=== PATIENT | female | born 1960 | race Caucasian/White ===

== ENCOUNTER 2020-04-25 07:25 | Emergency (ER) | payer BC ==
--- OUTSIDE RECORDS SUMMARY | 2020-04-25 07:31 | XMS REPORT | Continuity of Care Document ---
:1960 Author Organization [facility] t Address [address] [place] [address] Care Team Providers Name Role Phone Unavailable Unavailable Unavailable Payers Payer Name Policy Type Policy Number Effective Date Expiration Date S ource Problems This patient has no known problems. Allergies, Adverse Reactions, Alerts Allergy Allergy Status Severity Reaction(s) Onset Inactive Treating Comm ents Source Name Type Date Date Clinician penicill DA Active U 2010-04 [facility] in G 06-08 00:00: [address] Medications This patient has no known medications. Procedures This patient has no known procedures. Results Test Description Test Time Test Comments Results Result Comments Source BASIC METABOLIC PANEL 2019-04-07 10:41:00 Test Item Value Reference Range Interpretation Comme nts SODIUM (test code = NA) 136 MMOL/L 137-145 L POTASSIUM (test code = K) 4.4 MMOL/L 3.5-5.1 N CHLORIDE (test code = CL) 97 MMOL/L 98-107 L CARBON DIOXIDE (test code = CO2) 30 MMOL/L 22-30 N GLUCOSE (test code = GLU) 124 MG/DL 74-106 H BLOOD UREA NITROGEN (test code = 12 MG/DL 7-17 N BUN) GLOMERULAR FILTRATION RATE (test > 60 Reporting units: ml/min/1.73 code = GFR) m2 (Modified M DRD Formula)Referen ce Range: > or = 60 ml/min/1.7 3 m2 CREATININE (test code = CREAT) 0.80 MG/DL 0.52-1.04 N CALCIUM (test code = CA) 9.7 MG/DL 8.4-10.2 N [id number] 10:41:00 Test Item Value Reference Range Interpretation Comments MAGNESIUM (test code = MAG) 1.8 MG/DL 1.6-2.3 N BASIC METABOLIC [id number] 10:40:00 Test Item Value Reference Range Interpretation Comments SODIUM (test code = 136 MMOL/L 137-145 L NA) POTASSIUM (test code = 4.4 MMOL/L 3.5-5.1 N K) CHLORIDE (test code = 97 MMOL/L 98-107 L CL) CARBON DIOXIDE (test MMOL/L 22-30 code = CO2) GLUCOSE (test code = MG/DL 74-106 GLU) BLOOD UREA NITROGEN MG/DL 7-17 (test code = BUN) GLOMERULAR FILTRATION > 60 Report ing units: RATE (test code = GFR) ml/mi n/1.73 m2 (Modified MDRD Formula)Referen ce Range: > or = 6 0 ml/min/1.73 m2 CREATININE (test code 0.80 MG/DL 0.52-1.04 N = CREAT) CALCIUM (test code = MG/DL 8.7-9.7 CA) [id number] 10:40:00 Test Item Value Reference Range Interpretation Comments MAGNESIUM (test code = MAG) MG/DL 1.6-2.3 BASIC METABOLIC [id number] 10:38:00 Test Item Value Reference Range Interpretation Comments SODIUM (test code = NA) 136 MMOL/L 137-145 L POTASSIUM (test code = K) 4.4 MMOL/L 3.5-5.1 N CHLORIDE (test code = CL) 97 MMOL/L 98-107 L CARBON DIOXIDE (test code = CO2) MMOL/L 22-30 GLUCOSE (test code = GLU) MG/DL 74-106 BLOOD UREA NITROGEN (test code = MG/DL 7-17 BUN) GLOMERULAR FILTRATION RATE (test code = GFR) CREATININE (test code = CREAT) MG/DL 0.52-1.04 CALCIUM (test code = CA) MG/DL 8.7-9.7 [id number] 10:38:00 Test Item Value Reference Range Interpretation Comments MAGNESIUM (test code = MAG) MG/DL 1.6-2.3 PROTHROMBIN [id number] 10:25:00 Test Item Value Reference Range Interpretation Comments PROTHROMBIN TIME 10.2 SECONDS 9.6-11.6 N PATIENT (test code = PTP) INTERNATIONAL NORMAL 1.0 0.8-1.1 N The INR is to be RATIO (test code = used only for INR) monitoring oral anticoagulantth erap y. INDICATION I NR VALUE ---- ---- ---- -------1. Prophylaxis, de ep venous thrombos is, including hig h risk surgery. 2.0 - 3.0 2. Prophylaxis, de ep venous thrombos is, hip surgery, treatment for d eep venous thrombosis or pulmonary prevention of systemic emboli sm in patients wit h valvular heart disease, atrial fibrillation, tissue heart va lve, or acute myocar dial infarction. 2.0 - 3 .0 3. Mechanical prosthesis hear t valves, recurrent syste oseas embolism. 3.0 - 4.5 PTT [id number] 10:25:00 Test Item Value Reference Range Interpretation Comments PTT ACTIVATED (test code = APTT) 30.2 SECONDS 22.0-33.0 N CBC W/AUTO [id number] 10:11:00 Test Item Value Reference Range Interpretation Comments WHITE BLOOD CELL (test code = 8.4 K/MM3 3.8-9.8 N WBC) RED BLOOD CELL (test code = 4.33 M/MM3 3.58-4.97 N RBC) HEMOGLOBIN (test code = HGB) 13.0 G/DL 11.2-14.9 N HEMATOCRIT (test code = HCT) 39.4 % 33.2-43.5 N MEAN CELL VOLUME (test code = 91 fL 80.7-99.1 N MCV) MEAN CELL HGB (test code = MCH) 30.0 pg 27.0-34.1 N MEAN CELL HGB CONCETRATION 33.0 % 32.2-35.7 N (test code = MCHC) RED CELL DISTRIBUTION WIDTH 12.8 % 12.1-15.2 N (test code = RDW) PLATELET COUNT (test code = 203 K/MM3 129-368 N PLT) MEAN PLATELET VOLUME (test code 10.5 fl 7.4-10.4 H = MPV) NEUTROPHIL % (test code = NT%) 63.0 % 43-75 N IMMATURE GRANULOCYTE % (test 0.9 % 0.0-2.0 N code = IG%) LYMPHOCYTE % (test code = LY%) 25.5 % 14-44 N MONOCYTE % (test code = MO%) 6.3 % 4-13 N EOSINOPHIL % (test code = EO%) 3.8 % 0-6 N BASOPHIL % (test code = BA%) 0.5 % 0-2 N NUCLEATED RBC % (test code = 0.0 % 0-1.0 N NRBC%) NEUTROPHIL # (test code = NT#) 5.32 K/mm3 2.0-7.6 N IMMATURE GRANULOCYTE # (test 0.08 x10 3/uL 0-0.03 H code = IG#) LYMPHOCYTE # (test code = LY#) 2.15 K/mm3 1.0-3.8 N MONOCYTE # (test code = MO#) 0.53 K/mm3 0.1-0.8 N EOSINOPHIL # (test code = EO#) 0.32 K/mm3 0.0-0.2 H BASOPHIL # (test code = BA#) 0.04 K/mm3 0.0-0.2 N NUCLEATED RBC # (test code = 0.00 K/mm3 0.0-0.1 N NRBC#)
[2020-04-25 08:02] LABS: Absolute Lymphocytes (CBC) 2.5 K/uL (0.7-4.9); Basophils % 0.8 % (0-1.3); Hematocrit 41.4 % (36.0-45.0); Lymphocytes % 31.3 % (15.3-44.8); MPV 9.1 fL (7.6-11.3); RBC Red Blood Cell Count 4.87 M/uL (3.86-4.86)
[2020-04-25 08:07] LABS: Protime INR 1.59
[2020-04-25 08:19] LABS: ALT/SGPT 79 U/L (12-78); AST/SGOT 41 U/L (15-37); Albumin 3.5 g/dL (3.4-5.0); Alkaline Phosphatase 86 U/L (45-117); BUN Blood Urea Nitrogen 15 mg/dL (7-18); Bicarbonate 28 mmol/L (21-32); Bilirubin Direct 0.2 mg/dL (0-0.2); Bilirubin Total 0.8 mg/dL (0.2-1.0); CKMB Creatine Kinase MB < 1.0 ng/mL (0.3-3.6); Creatine Phosphokinase 101 U/L (26-192); Glucose Level 138 mg/dL (74-106); Lipase 240 U/L (73-393); Magnesium 1.9 mg/dL (1.8-2.4); NT PRO-BNP 127 pg/mL (<125); Potassium 3.4 mmol/L (3.5-5.1); Protein, Total 8.9 g/dL (6.4-8.2); Sodium Level 128 mmol/L (136-145); Troponin (Emerg Dept Use Only) < 0.02 ng/mL (0.0-0.045)
[2020-04-25] MEDS ORDERED: METHYLPREDNISOLONE 125 MG INJ ONE (08:23)
[2020-04-25] MEDS ORDERED: LEVALBUTEROL 1.25 MG/3 ML NEB ONE (08:24)
--- NOTE | 2020-04-25 10:12 | RAD REPORT ---
EXAM DESCRIPTION: CT - Chest For Pe Angio - 04/25/2020 9:58 am CLINICAL HISTORY: SOB and Covid + COMPARISON: No comparisons TECHNIQUE: Dynamically enhanced 3 mm thick images of the chest were obtained during administration o f approximately 150mL Isovue 370 IV contrast. Coronal and oblique MIP reconstruction images were gene rated and reviewed. Exam utilizes a protocol to evaluate the pulmonary arterial tree. All CT scans are performed using dose optimization technique as appropriate and may include automated exposure control or mA/KV adjustment according to patient size. FINDINGS: No pulmonary emboli are identified. The aorta as imaged shows no acute or suspicious finding. No pericardial thickening or effusion. Bilateral ground-glass opacification present in the upper and mid lung kent. Less prominent airspac e disease in the lower lung kent. Distribution is peripheral. This is a well described COVID-19 pne umonia pattern. Parenchymal scarring and bronchiectasis changes are present in the medial aspect of e ach upper lobe. No pleural effusion or pleural thickening. No mediastinal or hilar suspicious masses. No chest wall masses or abnormal axillary lymphadenopathy. IMPRESSION: No pulmonary emboli identified. Moderate severity bilateral COVID-19 pneumonia pattern
--- NOTE | 2020-04-25 12:34 | EDPHYS ---
Physician Documentation [facility] Name: Flakita Stevenson Age: 59 yrs Sex: Female : 1960 Arrival Date: 04/25/2020 Time: 07:28 Bed 6 Private MD: ED Physician Rachid Silva HPI: 04/25 15:50 This 59 yrs old Female presents to ER via Ambulatory with complaints of kdr Shortness Of Breath, Covid +. 15:50 The patient has shortness of breath at rest, with light activity. Onset: The kdr symptoms/episode began/occurred gradually, 1 week(s) ago, Worse today when the patient noted that her sats dropped from \\R\\97% to 93%. The patient had brought her in yesterday for similar problems and he was admitted. The patient is concerted that she may be worsening as did her . she had been seen last week by her doctor and given am Rx for steroids and abx. She has not taken the steroids. Duration: The symptoms are continuous, Worse now but not progressively worsening. The patient's shortness of breath has no apparent modifying factors. Associated signs and symptoms: Pertinent positives: non-productive cough. Severity of symptoms: At their worst the symptoms were mild in the emergency department the symptoms are unchanged. The patient has not experienced similar symptoms in the past. The patient has been recently seen by a physician: the patient's primary care provider. Historical: - Allergies: 08:20 PENICILLINS; tw2 08:20 Cipro; tw2 - Home Meds: 08:20 carvedilol 25 mg oral tab 1 tab 2 times per day [Active]; lisinopril 5 mg Oral tab 1 tw2 tab once daily [Active]; spironolactone 25 mg Oral tab 1 tab once daily [Active]; digoxin 125 mcg Oral tab 1 tab once daily [Active]; hydrochlorothiazide 12.5 mg Oral tab 1 tab once daily [Active]; digoxin 125 mcg Oral tab 1 tab once daily [Active]; Caltrate + D3 Plus Minerals 300 mg-800 unit -25 mg-0.5 mg oral tab [Active]; Multiple Vitamins oral tab [Active]; - PSHx: 08:20 pacemaker/defibrillator; tw2 ROS: 15:50 Constitutional: Negative for fever, chills, and weight loss, Eyes: Negative for injury, kdr pain, redness, and discharge, Neck: Negative for injury, pain, and swelling, Cardiovascular: Negative for chest pain, palpitations, and edema, Abdomen/GI: Negative for abdominal pain, nausea, vomiting, diarrhea, and constipation, Back: Negative for injury and pain, : Negative for injury, bleeding, discharge, and swelling, MS/Extremity: Negative for injury and deformity, Skin: Negative for injury, rash, and discoloration, Neuro: Negative for headache, weakness, numbness, tingling, and seizure activity. Psych: Negative for depression, anxiety, suicide ideation, homicidal ideation, and hallucinations, Allergy/Immunology: Negative for hives, rash, and allergies, Endocrine: Negative for neck swelling, polydipsia, polyuria, polyphagia, and marked weight changes, Hematologic/Lymphatic: Negative for swollen nodes, abnormal bleeding, and unusual bruising. 15:50 Respiratory: Positive for cough, "sounds productive", dyspnea on exertion, shortness of breath, Negative for hemoptysis, orthopnea, pleurisy. Exam: 09:06 ECG was reviewed by the Attending Physician. kdr 15:50 Constitutional: This is a well developed, well nourished patient who is awake, alert, kdr and in no acute distress. Head/Face: Normocephalic, atraumatic. Eyes: Pupils equal round and reactive to light, extra-ocular motions intact. Lids and lashes normal. Conjunctiva and sclera are non-icteric and not injected. Cornea within normal limits. Periorbital areas with no swelling, redness, or edema. Neck: Trachea midline, no thyromegaly or masses palpated, and no cervical lymphadenopathy. Supple, full range of motion without nuchal rigidity, or vertebral point tenderness. No Meningismus. Chest/axilla: Normal chest wall appearance and motion. Nontender with no deformity. No lesions are appreciated. Cardiovascular: Regular rate and rhythm with a normal S1 and S2. No gallops, murmurs, or rubs. Normal PMI, no JVD. No pulse deficits. Abdomen/GI: Soft, non-tender, with normal bowel sounds. No distension or tympany. No guarding or rebound. No evidence of tenderness throughout. Back: No spinal tenderness. No costovertebral tenderness. Full range of motion. Skin: Warm, dry with normal turgor. Normal color with no rashes, no lesions, and no evidence of cellulitis. MS/ Extremity: Pulses equal, no cyanosis. Neurovascular intact. Full, normal range of motion. Neuro: Awake and alert, GCS 15, oriented to person, place, time, and situation. Cranial nerves II-XII grossly intact. Motor strength 5/5 in all extremities. Sensory grossly intact. Cerebellar exam normal. Normal gait. Psych: Awake, alert, with orientation to person, place and time. Behavior, mood, and affect are within normal limits. 15:50 Respiratory: the patient does not display signs of respiratory distress, Respirations: shallow respirations, that is mild, Breath sounds: rales, rhonchi, that are mild, are scattered, are located in both bases, are heard diffusely. Vital Signs: 07:39 BP 126 / 66; Pulse 97; Resp 22; Temp 98.3; Pulse Ox 97% on R/A; Weight 72.57 kg; Height dm5 5 ft. 4 in. (162.56 cm); Pain 0/10; 08:47 BP 113 / 64; Pulse 93; Resp 15; Pulse Ox 100% on 2 lpm NC; tw2 10:00 BP 120 / 54; Pulse 86; Resp 19; Pulse Ox 96% on 2 lpm NC; tw2 11:00 BP 134 / 55; Pulse 87; Resp 20; Pulse Ox 96% on 2 lpm NC; tw2 12:00 BP 113 / 52; Pulse 88; Resp 24; Pulse Ox 96% on R/A; tw2 07:39 Body Mass Index 27.46 (72.57 kg, 162.56 cm) 5 MDM: 12:33 Patient medically screened. kdr 15:50 Data reviewed: vital signs, nurses notes, lab test result(s), EKG, radiologic studies. kdr Counseling: I had a detailed discussion with the patient and/or guardian regarding: the historical points, exam findings, and any diagnostic results supporting the discharge/admit diagnosis, lab results, radiology results, the need for outpatient follow up. ED course: The patient was stable in the ED and tolerated ambulation/exertions without desaturation. 04/25 07:32 Order name: Blood Culture Adult (2) kdr 04/25 07:32 Order name: BMP; Complete Time: 08:20 kdr 04/25 07:32 Order name: CBC with Diff; Complete Time: 08:20 kdr 04/25 07:32 Order name: Ckmb; Complete Time: 08:20 kdr 04/25 07:32 Order name: CPK; Complete Time: 08:20 kdr 04/25 07:32 Order name: D-Dimer; Complete Time: 08:20 kdr 04/25 07:32 Order name: Hepatic Function; Complete Time: 08:20 kdr 04/25 07:32 Order name: Lipase; Complete Time: 08:20 kdr 04/25 07:32 Order name: Magnesium; Complete Time: 08:20 kdr 04/25 07:32 Order name: NT PRO-BNP; Complete Time: 08:20 kdr 04/25 07:32 Order name: PT-INR; Complete Time: 08:20 kdr 04/25 07:32 Order name: Ptt, Activated; Complete Time: 08:20 kdr 04/25 07:32 Order name: Troponin (emerg Dept Use Only); Complete Time: 08:20 kdr 04/25 07:32 Order name: Blood Culture EDMS 04/25 07:32 Order name: EKG; Complete Time: 07:33 kdr 04/25 07:32 Order name: Cardiac monitoring; Complete Time: 07:54 kdr 04/25 07:32 Order name: EKG - Nurse/Tech; Complete Time: 08:02 kdr 04/25 07:32 Order name: IV Saline Lock; Complete Time: 07:54 kdr 04/25 07:32 Order name: Labs collected and sent; Complete Time: 07:54 kdr 04/25 07:32 Order name: O2 Per Protocol; Complete Time: 07:54 kdr 04/25 07:32 Order name: O2 Sat Monitoring; Complete Time: 07:54 kdr 04/25 09:38 Order name: CT Chest For PE Angio; Complete Time: 11:05 kdr 04/25 11:12 Order name: Misc. Order: ambulate patient and record POx; Complete Time: 12:30 kdr EC:06 Rate is 92 beats/min. Rhythm is regular, Sinus Rhythm with No ectopy. QRS [place] is kdr Normal. Left axis deviation noted. NC interval is normal. QRS interval is normal. QT interval is normal. 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 Administered Medications: 08:14 Drug: SOLU-Medrol 125 mg Route: IVP; Site: right antecubital; tw2 12:30 Follow up: Response: No adverse reaction tw2 08:16 Drug: Xopenex (3) 1.25 mg Route: Inhalation; tw2 Disposition: 04/25/20 12:33 Discharged to Home. Impression: Pneumonia, unspecified organism - COVID, SARS-associated coronavirus as the cause of diseases classified elsewhere. - Condition is Stable. - Discharge Instructions: Community-Acquired Pneumonia, Adult, Shortness of Breath, [id number]-mk-[id number], Community-Acquired Pneumonia, Adult, Biji-zb-Cwgw, COVID-19. - Prescriptions for Pulmicort Flexhaler 180 mcg/actuation Inhalation aerosol powdr breath activated - inhale 1 puff by INHALATION route 2 times per day; 1 Cartridge. - Medication Reconciliation Form, Thank You Letter, Antibiotic Education, Prescription Opioid Use form. - Follow up: Private Physician; When: 2 - 3 days; Reason: If symptoms return, Further diagnostic work-up, Recheck today's complaints, Continuance of care, Re-evaluation by your physician. - Problem is an ongoing problem. - Symptoms have improved. - Notes: Start taking the steroids that you had been previously given. Return if your symptoms worsen Signatures: Dispatcher [employer] EDMS Rachid Silva MD MD kdr Eun Cuellar RN RN tw2 Corrections: (The following items were deleted from the chart) 12:36 12:33 04/25/2020 12:33 Discharged to Home. Impression: Pneumonia, unspecified organism tw2 - COVID; SARS-associated coronavirus as the cause of diseases classified elsewhere. Condition is Stable. Discharge Instructions: Shortness of Breath, Gaqc-gc-Awgj, Community-Acquired Pneumonia, Adult, Bpmc-[id number], COVID-19. Prescriptions for Pulmicort Flexhaler 180 mcg/actuation Inhalation aerosol powdr breath activated - inhale 1 puff by INHALATION route 2 times per day; 1 Cartridge. and Forms are Medication Reconciliation Form, Thank You Letter, Antibiotic Education, Prescription Opioid Use. Follow up: Private Physician; When: 2 - 3 days; Reason: If symptoms return, Further diagnostic work-up, Recheck today's complaints, Continuance of care, Re-evaluation by your physician. Problem is an ongoing problem. Symptoms have improved. kdr
--- NOTE | 2020-04-25 12:34 | ER ---
Nurse's Notes [facility] Name: Flakita Stevenson Age: 59 yrs Sex: Female : 1960 Arrival Date: 04/25/2020 Time: 07:28 Bed 6 Private MD: Diagnosis: Pneumonia, unspecified organism-COVID;SARS-associated coronavirus as the cause of diseases classified elsewhere Presentation: 04/25 07:39 Chief complaint: Patient states: started to feel worse yesterday after trying to get dm5 to be seen yesterday. Oxygen dropped to 93% at home and she feels anxious. Coronavirus screen: Client denies travel out of the [place] in the last 14 days. Client reports previous positive COVID test result. Ebola Screen: Patient negative for fever greater than or equal to 101.5 degrees Fahrenheit, and additional compatible Ebola Virus Disease symptoms Patient denies exposure to infectious person. Patient denies travel to an Ebola-affected area in the 21 days before illness onset. No symptoms or risks identified at this time. Initial Sepsis Screen: Does the patient meet any 2 criteria? RR > 20 per min. No. Patient's initial sepsis screen is negative. Does the patient have a suspected source of infection? Yes: Productive cough/pneumonia. Risk Assessment: Do you want to hurt yourself or someone else? Patient reports no desire to harm self or others. Onset of symptoms was April 24, 2020. 07:39 Method Of Arrival: Ambulatory dm5 07:39 Acuity: FRANSICO 3 dm5 Historical: - Allergies: 08:20 PENICILLINS; tw2 08:20 Cipro; tw2 - Home Meds: 08:20 carvedilol 25 mg oral tab 1 tab 2 times per day [Active]; lisinopril 5 mg Oral tab 1 tw2 tab once daily [Active]; spironolactone 25 mg Oral tab 1 tab once daily [Active]; digoxin 125 mcg Oral tab 1 tab once daily [Active]; hydrochlorothiazide 12.5 mg Oral tab 1 tab once daily [Active]; digoxin 125 mcg Oral tab 1 tab once daily [Active]; Caltrate + D3 Plus Minerals 300 mg-800 unit -25 mg-0.5 mg oral tab [Active]; Multiple Vitamins oral tab [Active]; - PSHx: 08:20 pacemaker/defibrillator; tw2 Screenin:47 Abuse screen: Denies threats or abuse. Nutritional screening: No deficits noted. tw2 Tuberculosis screening: No symptoms or risk factors identified. Fall Risk None identified. Assessment: 07:45 General: Appears in no apparent distress. Behavior is cooperative, appropriate for age, tw2 anxious. Pain: Denies pain. Neuro: Level of Consciousness is awake, alert, obeys commands, Oriented to person, place, time, situation. Neuro: Reports fatigue. Cardiovascular: Rhythm is ventricular pacer. Respiratory: Reports shortness of breath at rest on exertion cough that is non-productive, persistent Airway is patent Respiratory effort is even, unlabored, Respiratory pattern is regular, symmetrical. Respiratory: Reports "i just feel claustrophobic with this mask on", pt placed on o2 via NC at 2L at this time for comfort. GI: No signs and/or symptoms were reported involving the gastrointestinal system. : No signs and/or symptoms were reported regarding the genitourinary system. Derm: No signs and/or symptoms reported regarding the dermatologic system. Skin is intact, is healthy with good turgor, Skin is pink, warm \\T\\ dry. Musculoskeletal: Range of motion: intact in all extremities. 07:52 Reassessment: provider at bedside. tw2 08:47 Reassessment: Patient appears in no apparent distress at this time. Patient and/or tw2 family updated on plan of care and expected duration. Pain level reassessed. Patient is alert, oriented x 3, equal unlabored respirations, skin warm/dry/pink. Patient states feeling better. 09:45 Reassessment: Patient appears in no apparent distress at this time. Patient and/or tw2 family updated on plan of care and expected duration. Pain level reassessed. Patient is alert, oriented x 3, equal unlabored respirations, skin warm/dry/pink. 10:45 Reassessment: Patient appears in no apparent distress at this time. Patient and/or tw2 family updated on plan of care and expected duration. Pain level reassessed. Patient is alert, oriented x 3, equal unlabored respirations, skin warm/dry/pink. 11:46 Reassessment: Patient appears in no apparent distress at this time. Patient and/or tw2 family updated on plan of care and expected duration. Pain level reassessed. Patient is alert, oriented x 3, equal unlabored respirations, skin warm/dry/pink. 12:00 Reassessment: Patient and/or family updated on plan of care and expected duration. Pain tw2 level reassessed. Patient is alert, oriented x 3, equal unlabored respirations, skin warm/dry/pink. pt ambulating around in room o2 sat at 96% on RA, NAD, provider notified. 12:28 Reassessment: Patient appears in no apparent distress at this time. Patient and/or tw2 family updated on plan of care and expected duration. Pain level reassessed. Patient is alert, oriented x 3, equal unlabored respirations, skin warm/dry/pink. Patient states feeling better. Vital Signs: 07:39 BP 126 / 66; Pulse 97; Resp 22; Temp 98.3; Pulse Ox 97% on R/A; Weight 72.57 kg; Height dm5 5 ft. 4 in. (162.56 cm); Pain 0/10; 08:47 BP 113 / 64; Pulse 93; Resp 15; Pulse Ox 100% on 2 lpm NC; tw2 10:00 BP 120 / 54; Pulse 86; Resp 19; Pulse Ox 96% on 2 lpm NC; tw2 11:00 BP 134 / 55; Pulse 87; Resp 20; Pulse Ox 96% on 2 lpm NC; tw2 12:00 BP 113 / 52; Pulse 88; Resp 24; Pulse Ox 96% on R/A; tw2 07:39 Body Mass Index 27.46 (72.57 kg, 162.56 cm) dm5 ED Course: 07:28 Patient arrived in ED. ds1 07:30 Rachid Silva MD is Attending Physician. kdr 07:30 Placed in gown. Bed in low position. manager community on. Pulse ox on. NIBP on. Warm tw2 blanket given. 07:32 Eun Cuellar RN is Primary Nurse. tw2 07:41 Triage completed. dm5 07:45 Inserted saline lock: 20 gauge in right antecubital area, using aseptic technique. tw2 Blood collected. 08:05 Second set of blood cultures drawn by me. tw2 08:16 Blood Culture Adult (2) Sent. tw2 09:59 CT Chest For PE Angio In Process Unspecified. EDMS 12:28 No provider procedures requiring assistance completed. IV discontinued, intact, tw2 bleeding controlled, No redness/swelling at site. Pressure dressing applied. Administered Medications: 08:14 Drug: SOLU-Medrol 125 mg Route: IVP; Site: right antecubital; tw2 12:30 Follow up: Response: No adverse reaction tw2 08:16 Drug: Xopenex (3) 1.25 mg Route: Inhalation; tw2 Outcome: 12:28 Discharged to home ambulatory. tw2 12:28 Condition: stable 12:28 Discharge instructions given to patient, Instructed on discharge instructions, follow up and referral plans. medication usage, Demonstrated understanding of instructions, follow-up care, medications, Prescriptions given X 1. 12:33 Discharge ordered by . kdr 12:36 Patient left the ED. tw2 Signatures: Dispatcher [employer] EDDebra Potts, RN RN dm5 Rachid Silva MD MD kdr Sanford, Demi ds1 Eun Cuellar RN RN tw2 Corrections: (The following items were deleted from the chart) 12:21 11:00 BP 134 / 55; Pulse 87bpm; Resp 20bpm; Pulse Ox 96% RA; tw2 tw2
[2020-04-25 13:21] VITALS: TEMP 98.3
[2020-04-25 13:24] VITALS: O2SAT 96
[2020-04-25 13:27] VITALS: BP 113/52
--- NOTE | 2020-04-25 17:32 | EKG ---
Test Date: 2020-04-25 Test Time: 07:56:03 Infertility Medical Assistant: DEON MEASUREMENT RESULTS: Intervals: Rate: 92 ME: 130 QRSD: 128 QT: 400 QTc: 494 [place]: P: 41 ME: 130 QRS: 85 T: 37 INTERPRETIVE STATEMENTS: Normal sinus rhythm Jopwp-Itgbdahsx-Qbnus Abnormal ECG Compared to ECG 11/05/2000 11:11:00 Ventricular preexcitation now present Sinus arrhythmia no longer present Electronically Signed On 04-25-20 17:31:17 BONE PROCESS OPERATOR by Enio Herrera
== END 2020-04-25 12:36 | disposition home or self-care (01) ==
LOC: ER 07:25
DX: U07.1 COVID-19 (principal); J12.82 Pneumonia due to coronavirus disease 2019; Z95.810 Presence of automatic (implantable) cardiac defibrillator; Z88.0 Allergy status to penicillin; Z88.1 Allergy status to other antibiotic agents
CPT/HCPCS: 93005; 87040 ×2; 85025; 80048; 36415; 83735; 82550; 85610; 85379; 80076; 85730; 84484; 82553; 83690; 83880; 71275; 96374; 99285; Q9967; J2930

== ENCOUNTER 2020-04-27 06:34 | Inpatient (IN) | payer BC ==
--- OUTSIDE RECORDS SUMMARY | 2020-04-27 06:36 | XMS REPORT | Continuity of Care Document ---
:1960 Author Organization [facility] t Address [address] [place] [address] Care Team Providers Name Role Phone Unavailable Unavailable Unavailable Payers Payer Name Policy Type Policy Number Effective Date Expiration Date S ource Problems This patient has no known problems. Allergies, Adverse Reactions, Alerts Allergy Allergy Status Severity Reaction(s) Onset Inactive Treating Comm ents Source Name Type Date Date Clinician penicill DA Active U 2010-04 [facility] in [facility] 06-08 00:00: [address] Medications This patient has no known [...] code = CA) 9.7 MG/DL 8.4-10.2 N [id number] 10:41:00 Test Item Value Reference Range Interpretation Comments MAGNESIUM (test code = MAG) 1.8 MG/DL 1.6-2.3 N BASIC METABOLIC [id number] 10:40:00 Test Item Value Reference Range Interpretation [...] CALCIUM (test code = MG/DL 8.7-9.7 CA) [id number] 10:40:00 Test Item Value Reference Range Interpretation Comments MAGNESIUM (test code = MAG) MG/DL 1.6-2.3 BASIC METABOLIC [id number] 10:38:00 Test Item Value Reference Range Interpretation [...] CALCIUM (test code = CA) MG/DL 8.7-9.7 [id number] 10:38:00 Test Item Value Reference Range Interpretation Comments MAGNESIUM (test code = MAG) MG/DL 1.6-2.3 PROTHROMBIN [id number] 10:25:00 Test Item Value Reference Range Interpretation [...] syste oseas embolism. 3.0 - 4.5 PTT [id number] 10:25:00 Test Item Value Reference Range Interpretation Comments PTT ACTIVATED (test code = APTT) 30.2 SECONDS 22.0-33.0 N CBC W/AUTO [id number] 10:11:00 Test Item Value Reference Range Interpretation [...]
--- NOTE | 2020-04-27 09:13 | RAD REPORT ---
EXAM DESCRIPTION: RAD - Chest Single View - 04/27/2020 8:55 am CLINICAL HISTORY: COVID+;Dyspnea Chest pain. COMPARISON: CHEST PA AND LAT 2 VIEW dated 09/25/2010; CHEST PA AND LAT 2 VIEW dated 11/18/2000; Chest Fo r Pe Angio dated 04/25/2020 FINDINGS: Portable technique limits examination quality. Mild interstitial and alveolar lung opacities are seen in the lower lobes peripherally likely related to viral pneumonia. The heart is normal in size. Dual lead pacer/ defibrillator device is present.
[2020-04-27 09:22] LABS: Absolute Lymphocytes (CBC) 1.7 K/uL (0.7-4.9); Basophils % 0.2 % (0-1.3); Lymphocytes % 10.7 % (15.3-44.8); MPV 9.3 fL (7.6-11.3); RBC Red Blood Cell Count 4.62 M/uL (3.86-4.86)
--- NOTE | 2020-04-27 09:22 | RAD REPORT ---
EXAM DESCRIPTION: CT - Chest For Pe Angio - 04/27/2020 9:12 am CLINICAL HISTORY: Chest pain. DYSPNEA COMPARISON: Chest For Pe Angio dated 04/25/2020 TECHNIQUE: CT angiogram of the pulmonary arteries was performed with MIP. All CT scans are performed using dose optimization technique as appropriate and may include automated exposure control or mA/KV adjustment according to patient size. FINDINGS: No evidence of pulmonary thromboembolism. No acute aortic finding demonstrated. Ground-glass opacities in the periphery of both lungs in both lung bases has mildly improved since co mparative CT. No significant pericardial or pleural fluid. No concerning bony finding. IMPRESSION: No evidence of pulmonary thromboembolism. Mild improvement in bilateral ground-glass opacities since 04/25/2020 study.
[2020-04-27] MEDS ORDERED: METHYLPREDNISOLONE 125 MG INJ ONE (09:25)
[2020-04-27 09:32] LABS: BUN Blood Urea Nitrogen 21 mg/dL (7-18); Bicarbonate 28 mmol/L (21-32); Ferritin 747.9 ng/mL (8-388); Glucose Level 136 mg/dL (74-106); NT PRO-BNP 198 pg/mL (<125); Potassium 4.7 mmol/L (3.5-5.1); Sodium Level 131 mmol/L (136-145); Troponin (Emerg Dept Use Only) < 0.02 ng/mL (0.0-0.045)
[2020-04-27] MEDS ORDERED: ALBUTEROL INHALER 60 PUFF/8 GM IH ONE (10:54)
--- NOTE | 2020-04-27 11:53 | ER ---
Nurse's Notes [facility] Name: Flakita Stevenson Age: 59 yrs Sex: Female : 1960 Arrival Date: 04/27/2020 Time: 06:35 Bed 13 Private MD: Diagnosis: Coronavirus infection, unspecified;Pneumonia, unspecified organism;Dyspnea, unspecified Presentation: 04/27 07:27 Chief complaint: Patient states: My oxygen is low and I tested positive for COVID. PT ss c/o SOB. + for COVID 04/18. Coronavirus screen: shortness of breath, Client presents with at least one sign or symptom that may indicate coronavirus-19. Standard/surgical mask placed on the client. Ebola Screen: Patient denies exposure to infectious person. Patient denies travel to an Ebola-affected area in the 21 days before illness onset. Initial Sepsis Screen: Does the patient have a suspected source of infection? No. Patient's initial sepsis screen is negative. Onset of symptoms was April 18, 2020. 07:27 Method Of Arrival: Ambulatory ss 07:27 Acuity: FRANSICO 3 ss 11:46 Initial Sepsis Screen: Does the patient meet any 2 criteria? No. Patient's initial ec1 sepsis screen is negative. Risk Assessment: Do you want to hurt yourself or someone else? Patient reports no desire to harm self or others. Triage Assessment: 11:46 General: Appears uncomfortable. Respiratory: Reports shortness of breath at rest. ec1 Historical: - Allergies: 07:29 Cipro; ss 07:29 PENICILLINS; ss - Immunization history:: Adult Immunizations up to date. - Social history:: Smoking status: Patient denies any tobacco usage or history of. - Family history:: not pertinent. - Hospitalizations: : No recent hospitalization is reported. Screenin:24 Abuse screen: Denies threats or abuse. Denies injuries from another. Nutritional ec1 screening: No deficits noted. Tuberculosis screening: No symptoms or risk factors identified. Fall Risk No fall in past 12 months (0 pts). Secondary diagnosis (15 points) IV access (20 points). Ambulatory Aid- None/Bed Rest/Nurse Assist (0 pts). Gait- Normal/Bed Rest/Wheelchair (0 pts) Mental Status- Oriented to own ability (0 pts). Assessment: 09:24 General: Appears uncomfortable, Behavior is anxious. Pain: Denies pain. Neuro: Level of ec1 Consciousness is awake, alert, Oriented to person, place, time, situation. Cardiovascular: Rhythm is Respiratory: Airway is patent Respiratory effort is even, labored, Breath sounds are clear bilaterally. Respiratory: Parent/caregiver reports the patient having cough that is productive, white sputum. GI: No signs and/or symptoms were reported involving the gastrointestinal system. : No signs and/or symptoms were reported regarding the genitourinary system. EENT: No signs and/or symptoms were reported regarding the EENT system. Derm: No signs and/or symptoms reported regarding the dermatologic system. Musculoskeletal: No signs and/or symptoms reported regarding the musculoskeletal system. 09:42 Reassessment: Patient and/or family updated on plan of care and expected duration. Pain ec1 level reassessed. Pt c/o of sob. Pt spo2 95%, patient placed on 1 L NC for comfort. 10:45 Reassessment: No changes from previously documented assessment. Patient and/or family ec1 updated on plan of care and expected duration. Pain level reassessed. Pt appears to be anxious, respiratory rate 26 per minute. 11:00 Reassessment: Patient and/or family updated on plan of care and expected duration. Pain ec1 level reassessed. Pt resting comfortably. No signs of distress. Pt placed on room air. NC removed. 11:44 Reassessment: No changes from previously documented assessment. Patient and/or family ec1 updated on plan of care and expected duration. Pain level reassessed. Pt still reports dyspnea, respiratory rate 32/ min. Lung sounds clear/ diminished. No signs of distress. 93-94% on room air. Dr. Stallworth updated on status. Vital Signs: 07:27 Resp 20; Weight 72.57 kg; Height 5 ft. 4 in. (162.56 cm); Pain 0/10; ss 07:30 BP 126 / 51; Pulse 89; Pulse Ox 96% ; ss 09:19 BP 132 / 109; Pulse 97 LA; Resp 28 S; Pulse Ox 96% on R/A; ec1 09:42 Pulse Ox 1 lpm NC; ec1 10:00 BP 110 / 54; Pulse 91; Resp 28 S; Pulse Ox 96% on 1 lpm NC; ec1 11:00 BP 126 / 62; Pulse 83; Resp 30 S; Pulse Ox 93% on R/A; ec1 13:13 Pulse Ox 93% on R/A; ec1 13:13 Pulse Ox 2 lpm NC; ec1 07:27 Body Mass Index 27.46 (72.57 kg, 162.56 cm) ED Course: 06:35 Patient arrived in ED. cl3 07:29 Triage completed. ss 07:29 Arm band placed on right wrist. ss 08:43 Paramjit Stallworth MD is Attending Physician. rn 08:55 XRAY Chest (1 view) In Process Unspecified. EDMS 09:02 Laura Bear, RN is Primary Nurse. ec1 09:[address] via stretcher. ec1 09:06 Inserted saline lock: 20 gauge in right antecubital area, using aseptic technique. ec1 Blood collected. 09:13 CT Chest For PE Angio In Process Unspecified. EDMS 09:24 Patient has correct armband on for positive identification. Placed in gown. Bed in low ec1 position. Side rails up X2. 11:52 Jayden Becker DO is Hospitalizing Provider. rn 13:52 Report given to Yudith Cavanaugh RN on 4th floor. ec1 Administered Medications: 09:23 Drug: SOLU-Medrol 125 mg Route: IVP; Site: right antecubital; ec1 10:00 Follow up: Response: No adverse reaction ec1 10:45 Drug: Albuterol HFA Inhaler 2 puffs Route: Inhalation; ec1 11:30 Follow up: Response: No adverse reaction ec1 Outcome: 11:52 Decision to Hospitalize by Provider. rn 14:08 Patient left the ED. ec1 Signatures: Dispatcher [employer] EDMS Paramjit Stallworth MD MD rn Smirch, Shelby, RN RN ss Lewis, Charde cl3 Laura Bear RN RN ec1
--- NOTE | 2020-04-27 11:53 | EDPHYS ---
Physician Documentation [facility] Name: Flakita Stevenson Age: 59 yrs Sex: Female : 1960 Arrival Date: 04/27/2020 Time: 06:35 Bed 13 Private MD: ED Physician Paramjit Stallworth HPI: 04/27 08:54 This 59 yrs old Female presents to ER via Ambulatory with complaints of rn Shortness Of Breath, COVID+. 08:54 The patient has shortness of breath at rest, with light activity. Onset: The rn symptoms/episode began/occurred 1 week(s) ago. Duration: The symptoms are continuous. The patient's shortness of breath is aggravated by exertion, light activity. Severity of symptoms: At their worst the symptoms were moderate in the emergency department the symptoms are unchanged. The patient has not experienced similar symptoms in the past. The patient has been recently seen at the [facility] Emergency Department. Reports diagnosed with COVID 1 week ago, sent home, taking steroids, reports worsening of sob, no hemoptysis. Returns because states oxygen decreasing, and increased dyspnea. . Historical: - Allergies: 07:29 Cipro; ss 07:29 PENICILLINS; ss - Immunization history:: Adult Immunizations up to date. - Social history:: Smoking status: Patient denies any tobacco usage or history of. - Family history:: not pertinent. - Hospitalizations: : No recent hospitalization is reported. ROS: 08:54 Constitutional: Negative for fever, chills, and weight loss, Eyes: Negative for injury, rn pain, redness, and discharge, Neck: Negative for injury, pain, and swelling, Cardiovascular: Negative for chest pain, palpitations, and edema, Respiratory: + sob and cough Abdomen/GI: Negative for abdominal pain, nausea, vomiting, diarrhea, and constipation, : Negative for injury, bleeding, discharge, and swelling, MS/Extremity: Negative for injury and deformity, Skin: Negative for injury, rash, and discoloration, Neuro: Negative for headache, numbness, tingling, and seizure. Exam: 08:54 Constitutional: This is a well developed, well nourished patient who is awake, alert, rn + moderate tachypnea Head/Face: Normocephalic, atraumatic. ENT: No stridor Cardiovascular: Regular rate and rhythm. No pulse deficits. Respiratory: + moderate tachypnea, speaking 3-4 word sentences Skin: Warm, dry MS/ Extremity: Pulses equal, no cyanosis. Neuro: Awake and alert, GCS 15 Vital Signs: 07:27 Resp 20; Weight 72.57 kg; Height 5 ft. 4 in. (162.56 cm); Pain 0/10; ss 07:30 BP 126 / 51; Pulse 89; Pulse Ox 96% ; ss 09:19 BP 132 / 109; Pulse 97 LA; Resp 28 S; Pulse Ox 96% on R/A; ec1 09:42 Pulse Ox 1 lpm NC; ec1 10:00 BP 110 / 54; Pulse 91; Resp 28 S; Pulse Ox 96% on 1 lpm NC; ec1 11:00 BP 126 / 62; Pulse 83; Resp 30 S; Pulse Ox 93% on R/A; ec1 13:13 Pulse Ox 93% on R/A; ec1 13:13 Pulse Ox 2 lpm NC; ec1 07:27 Body Mass Index 27.46 (72.57 kg, 162.56 cm) ss MDM: 08:43 Patient medically screened. rn 11:48 Differential diagnosis: pneumonia, Pneumothorax COVID pneumonia, PE. Data reviewed: rn vital signs, nurses notes, lab test result(s), radiologic studies, CT scan, plain films, and as a result, I will admit patient. Test interpretation: by ED physician or midlevel provider: plain radiologic studies, CXR shows bilateral opacities consistent with COVID pneumonia.. Counseling: I had a detailed discussion with the patient and/or guardian regarding: the historical points, exam findings, and any diagnostic results supporting the discharge/admit diagnosis, lab results, radiology results, the need for further work-up and treatment in the hospital. Admission orders: after a detailed discussion of the patient's condition and case, the admit orders are written by me. ED course: Persistent tachypnea at rest, lowest O2 at 92%, admitted to Dr. Becker for observation given no improvement ot steroids or albuterol. . 04/27 08:49 Order name: CBC with Diff; Complete Time: 09:53 rn 04/27 08:49 Order name: Basic Metabolic Panel; Complete Time: 09:53 rn 04/27 08:49 Order name: Ferritin; Complete Time: 09:53 rn 04/27 08:49 Order name: Procalcitonin; Complete Time: 10:15 rn 04/27 08:49 Order name: CRP; Complete Time: 09:53 rn 04/27 08:49 Order name: Troponin (emerg Dept Use Only); Complete Time: 09:53 rn 04/27 07:43 Order name: XRAY Chest (1 view); Complete Time: 09:25 rn 04/27 08:49 Order name: IV Start; Complete Time: 09:06 rn 04/27 08:49 Order name: BNP; Complete Time: 09:53 rn 04/27 08:51 Order name: CT Chest For PE Angio; Complete Time: 09:25 rn 04/27 11:51 Order name: COVID-19 eb Administered Medications: 09:23 Drug: SOLU-Medrol 125 mg Route: IVP; Site: right antecubital; ec1 10:00 Follow up: Response: No adverse reaction ec1 10:45 Drug: Albuterol HFA Inhaler 2 puffs Route: Inhalation; ec1 11:30 Follow up: Response: No adverse reaction ec1 Disposition: 04/27/20 11:52 Hospitalization ordered by Jayden Becker for Observation. Preliminary diagnosis are Coronavirus infection, unspecified, Pneumonia, unspecified organism, Dyspnea, unspecified. - Bed requested for Telemetry/MedSurg (observation). - Status is Observation. ec1 - Condition is Stable. - Problem is an ongoing problem. - Symptoms are unchanged. Signatures: Dispatcher [employer] EDMS Paramjit Stallworth MD MD rn Smirch, Shelby, RN RN ss Botello, Elizabeth eb Cruz, Emily, RN RN ec1 Corrections: (The following items were deleted from the chart) 13:26 11:52 Hospitalization Ordered by Jayden Becker DO for Observation. Preliminary eb diagnosis is Coronavirus infection, unspecified; Pneumonia, unspecified organism; Dyspnea, unspecified. Bed requested for Telemetry/MedSurg (observation). Status is Observation. Condition is Stable. Problem is an ongoing problem. Symptoms are unchanged. rn 14:08 13:26 04/27/2020 11:52 Hospitalization Ordered by Jayden Becker DO for Observation. ec1 Preliminary diagnosis is Coronavirus infection, unspecified; Pneumonia, unspecified organism; Dyspnea, unspecified. Bed requested for Telemetry/MedSurg (observation). Status is Observation. Condition is Stable. Problem is an ongoing problem. Symptoms are unchanged. eb
--- NOTE | 2020-04-27 13:20 | P.HP ---
Certification for Inpatient Patient admitted to: Observation With expected LOS: <2 Midnights Patient will require the following post-hospital care: None Practitioner: I am a practitioner with admitting privileges, knowledge of patient current condition, hospital course, and medical plan of care. Services: Services provided to patient in accordance with Admission requirements found in Title 42 Section 412.3 of the Code of Federal Regulations Patient History Date of Service: 04/27/20 Primary Care Provider: Dr. Childs Reason for admission: SOB History of Present Illness: 59-year-old female with history of CHF, defibrillator with prior cardiac injury related to chemotherapy, history of Hodgkin's lymphoma with prior chemotherapy and radiation, hypertension. Patient presented to the emergency room with increasing shortness of breath. Patient reports that she was diagnosis with COVID about 1 week ago at an urgent care center. Patient had been given medication for infection by her PCP. This included oral steroid, Xarelto, and supplementation. Her condition did not improve. also tested positive recently and is currently hospitalized. Continued to have increasing shortness of breath. She denied any fever. In the ER patient with tachypnea. Room-air saturations around 92%. Patient with increase shortness of breath with exertion. CT scan showed COVID pneumonia. White count 16.3. Platelet count 256, white count 13.4. Creatinine 0.9. Sodium 131, potassium 4.7. Glucose 136. Ferritin 747. CRP 40. Patient admitted for further evaluation and observation. When I saw the patient ER, patient appeared tachypneic but stable. 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 -: History of Hodgkin's lymphoma with prior chemo/rad Psychosocial/ Personal History: Patient lives at home - Family History Family History: Reviewed- Non-Contributory - Social History Smoking Status: Never smoker Alcohol use: Yes CD- Drugs: No Caffeine use: Yes Place of Residence: Home Review of Systems General: As per HPI Eyes: Unremarkable ENT: As per HPI Respiratory: Cough, Shortness of Breath, SOB with Excertion, As per HPI Cardiovascular: Unremarkable Gastrointestinal: Unremarkable Genitourinary: Unremarkable Musculoskeletal: Unremarkable Integumentary: Unremarkable Neurological: Unremarkable Lymphatics: Unremarkable Physical Examination - Physical Exam General: Alert, In no apparent distress, Oriented x3, Cooperative HEENT: Atraumatic, Normocephalic, Mucous membr. moist/pink Neck: Supple Respiratory: Other (Patient with tachypnea noted. 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 Will continue to monitor and trend CRP and ferritin. Will recheck chest x-ray tomorrow. Pulmonology consulted to further evaluate. Will start IV Solu-Medrol. Continue with supplementation. Will continue with Xarelto for DVT prophylaxis. Will maintain oxygen above 93%. Respiratory consulted to help with her breathing. Will continue to reassess. Possible discharge within 48 hr with improvement. 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 Chronic systolic CHF: Continue Aldactone. Will monitor closely. Discharge Plan: Home Plan to discharge in: 48 Hours - Advance Directives Does patient have a Living Will: No Does patient have a Durable POA for Healthcare: No - Code Status/Comfort Care Code Status Assessed: Yes (Patient is full code) Time Spent Managing Pts Care (In Minutes): 55
[2020-04-27] MEDS ORDERED: ALBUTEROL 2.5 MG/3 ML NEB SOL NEB PRN (14:26)
[2020-04-27] MEDS ORDERED: ACETAMINOPHEN 500 MG TAB PO PRN (14:26)
[2020-04-27] MEDS ORDERED: IPRATROPIUM BROM 0.5MG/2.5ML NEB PRN (14:26)
[2020-04-27] MEDS ORDERED: ONDANSETRON 4 MG/2 ML VIAL IV PRN (14:26)
[2020-04-27 15:41] VITALS: BMI 27.4
[2020-04-27] MEDS: ASCORBIC ACID 500 MG TABLET PO SCH ×2 (16:08→20:01)
[2020-04-27] MEDS: METHYLPREDNISOLONE 125 MG INJ IV SCH ×2 (16:08→17:45)
[2020-04-27] MEDS: carvediloL 25 MG TAB PO SCH (17:46)
[2020-04-27] MEDS: MELATONIN 5 MG TABLET PO SCH (20:01)
[2020-04-27] MEDS: ALPRAZOLAM 0.25 MG TABLET PO PRN (20:09)
[2020-04-28] MEDS: METHYLPREDNISOLONE 125 MG INJ IV SCH ×3 (00:51→17:31)
[2020-04-28 02:10] LABS: Urine Appearance CLEAR; Urine Bilirubin NEGATIVE (NEG); Urine Blood NEGATIVE (NEG); Urine Color YELLOW; Urine Glucose 3+ (NEG); Urine Protein NEGATIVE (NEG); Urine Specific Gravity >=1.030 (1.005-1.030); Urine Urobilinogen 0.2 mg/dL (0.2-1.0)
[2020-04-28 02:32] LABS: Urine Microscopic Reflex NO UMIC
[2020-04-28 04:42] LABS: Absolute Lymphocytes (CBC) 0.8 K/uL (0.7-4.9); Basophils % 0.1 % (0-1.3); Hematocrit 37.9 % (36.0-45.0); Lymphocytes % 7.1 % (15.3-44.8); MPV 9.2 fL (7.6-11.3); RBC Red Blood Cell Count 4.42 M/uL (3.86-4.86)
[2020-04-28 05:00] LABS: Bilirubin Total 0.5 mg/dL (0.2-1.0); Magnesium 2.6 mg/dL (1.8-2.4); Potassium 4.2 mmol/L (3.5-5.1); Protein, Total 7.8 g/dL (6.4-8.2)
[2020-04-28 05:50] LABS: C-Reactive Protein 63.8 mg/L (<3.00); Ferritin 706.5 ng/mL (8-388)
[2020-04-28] MEDS: carvediloL 25 MG TAB PO SCH ×2 (05:53→17:31)
[2020-04-28] MEDS ORDERED: hydroCHLOROthiazide 12.5 MG CAP PO SCH (09:00)
[2020-04-28] MEDS: ZINC SULFATE 220 MG CAP PO SCH (09:44)
[2020-04-28] MEDS: MULTIVITAMIN TAB PO SCH (09:45)
[2020-04-28] MEDS: lisinopriL 5 MG TAB PO SCH (09:45)
[2020-04-28] MEDS: SPIRONOLACTONE 25 MG TABLET PO SCH (09:45)
[2020-04-28] MEDS: ASCORBIC ACID 500 MG TABLET PO SCH ×3 (09:45→19:44)
[2020-04-28] MEDS: DIGOXIN 0.125 MG TABLET PO SCH (09:45)
[2020-04-28] MEDS: RIVAROXABAN 10 MG TABLET PO SCH (09:48)
--- NOTE | 2020-04-28 11:03 | P.PN ---
Subjective Date of Service: 04/28/20 Primary Care Provider: Dr. Childs Chief Complaint: SOB Subjective: Improving (slowly improving.) Physical Examination - Vital Signs Temperature: 96.8 F Blood Pressure: 125/59 Pulse: 83 Respirations: 28 Pulse Ox (%): 96 - Physical Exam General: Alert, In no apparent distress, Cooperative HEENT: Atraumatic Neck: Supple Respiratory: Other (Patient on 3 L. No respiratory distress noted) Cardiovascular: Normal pulses, Regular rate/rhythm Gastrointestinal: Normal bowel sounds, Soft and benign Neurological: Normal speech, Normal strength at 5/5 x4 extr, Normal tone, Normal affect - Studies Medications List Reviewed: Yes Assessment & Plan Discharge Plan: Home Plan to discharge in: 24 Hours Physician Review Additional Text: Impression: Dyspnea secondary to Bilateral COVID 19 pneumonia Hypertension 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 with defibrillator Chronic systolic CHF Plan: Dyspnea secondary to Bilateral COVID 19 pneumonia: Patient requiring 3 L per nasal cannula. Continue with IV Solu-Medrol and supplementation. Continue to wean off oxygen. Patient remains on Xarelto. Will ambulate patient. If doing well will consider discharge as early as today if oxygen can be arranged. If not may consider discharge tomorrow. 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 Chronic systolic CHF: Continue Aldactone. Will monitor closely. Time Spent Managing Pts Care (In Minutes): 55
[2020-04-28] MEDS: VITAMIN D 1000 UNIT TAB PO SCH (11:47)
[2020-04-28] MEDS: MELATONIN 5 MG TABLET PO SCH (19:44)
[2020-04-28] MEDS: ALPRAZOLAM 0.25 MG TABLET PO PRN (19:44)
[2020-04-29] MEDS: METHYLPREDNISOLONE 125 MG INJ IV SCH ×3 (00:19→18:30)
[2020-04-29] MEDS: carvediloL 25 MG TAB PO SCH ×2 (05:56→18:30)
--- NOTE | 2020-04-29 07:29 | P.PN ---
Subjective Date of Service: 04/29/20 Primary Care Provider: Dr. Childs Chief Complaint: SOB Subjective: Other (Still short of breath with exertion. Currently on 5 L per nasal cannula.) Physical Examination - Vital Signs Temperature: 97.0 F Blood Pressure: 115/58 Pulse: 78 Respirations: 24 Pulse Ox (%): 94 - Physical Exam General: Alert, Cooperative HEENT: Atraumatic Neck: Supple Respiratory: Other (Still on 5 L per nasal cannula. 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 Continue incentive spirometer. Encourage ambulation. Discussed the possibility of Remdesivir. Reason benefits addressed with the patient. She is willing to start this. Will initiate medication. Continue IV Solu-Medrol. Continue to wean down oxygen supplementation. Continue home medications. Anticipate improvement over the next 48 hr. I will turn the service over to the hospitalist team tomorrow. I will go plan of care with him. Hypertension: Continue home medication of carvedilol, hydrochlorothiazide and lisinopril. Will monitor and adjust appropriately. 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 Patient on IV Solu-Medrol. Patient medication from home includes prednisone 2.5 mg daily. Chronic systolic CHF: Continue Aldactone. Will monitor closely. Hyperglycemia secondary to IV steroids: Will check A1c. Will monitor this closely. Patient may require medication if elevated. GERD: Continue medication Time Spent Managing Pts Care (In Minutes): 55
[2020-04-29 07:37] LABS: Hematocrit 38.1 % (36.0-45.0); RBC Red Blood Cell Count 4.44 M/uL (3.86-4.86)
[2020-04-29 07:38] LABS: Absolute Lymphocytes (CBC) 0.8 K/uL (0.7-4.9); Basophils % 0.3 % (0-1.3); Lymphocytes % 6.6 % (15.3-44.8); MPV 9.1 fL (7.6-11.3)
[2020-04-29 07:50] LABS: Bilirubin Total 0.6 mg/dL (0.2-1.0); Magnesium 2.7 mg/dL (1.8-2.4); Potassium 4.3 mmol/L (3.5-5.1)
[2020-04-29 08:20] LABS: Ferritin 785.9 ng/mL (8-388)
[2020-04-29] MEDS ORDERED: HOME MED 1 EA UNK (Cyanocobalamin (Vitamin B-12) [Vitamin B-12] 1,000 MCG Capsule) PO SCH (09:00)
[2020-04-29] MEDS ORDERED: Remdesivir 200 MG in NA CHLORIDE 0.9% 250 ML IV ONE (09:00)
[2020-04-29] MEDS ORDERED: HOME MED 1 EA UNK (Hydrochlorothiazide [Hydrochlorothiazide] 12.5 MG Tablet) PO SCH (09:00)
[2020-04-29 10:00] LABS: Platelet Estimate ADEQ
[2020-04-29 10:01] LABS: Blood Morphology Comment NOT SEEN (NOT SEEN)
[2020-04-29] MEDS: ASCORBIC ACID 500 MG TABLET PO SCH ×3 (10:34→21:11)
[2020-04-29] MEDS: VITAMIN D 1000 UNIT TAB PO SCH (10:34)
[2020-04-29] MEDS: FAMOTIDINE 20 MG TAB PO SCH (10:34)
[2020-04-29] MEDS: ZINC SULFATE 220 MG CAP PO SCH (10:34)
[2020-04-29] MEDS: SPIRONOLACTONE 25 MG TABLET PO SCH (10:35)
[2020-04-29] MEDS: hydroCHLOROthiazide 12.5 MG CAP PO SCH (10:37)
[2020-04-29] MEDS: RIVAROXABAN 10 MG TABLET PO SCH (10:37)
[2020-04-29] MEDS: lisinopriL 5 MG TAB PO SCH (10:38)
[2020-04-29] MEDS: CYANOCOBALAMIN 1,000 MCG TAB PO SCH (10:38)
[2020-04-29] MEDS: MULTIVITAMIN TAB PO SCH (10:39)
[2020-04-29] MEDS: DIGOXIN 0.125 MG TABLET PO SCH (10:39)
--- NOTE | 2020-04-29 11:49 | RAD REPORT ---
EXAM DESCRIPTION: RAD - Chest Single View - 04/29/2020 7:20 am CLINICAL HISTORY: follow up COVID Chest pain. COMPARISON: Chest Single View dated 04/27/2020; CHEST PA AND LAT 2 VIEW dated 09/25/2010; CHEST PA AND L AT 2 VIEW dated 11/18/2000; Chest For Pe Angio dated 04/27/2020 FINDINGS: Portable technique limits examination quality. Mild bilateral pulmonary opacities are present, unchanged. The heart is upper limit normal in size wi th a dual lead pacer/ defibrillator device. No displaced fractures. IMPRESSION: Stable chest since 04/27/2020.
--- NOTE | 2020-04-29 12:49 | P.CNS ---
Date of Consult: 04/29/20 Primary Care Provider: Dr. Childs Chief Complaint: SOB History of Present Illness: Patient is 59 years of age with a history of set CHF multiple other medical problems admitted with worsening dyspnea she had benítez virus infection diagnosed about a week ago she was given steroids and anticoagulation became progressively more short of breath very weak her is also in the hospital patient is feeling well we PE feeling very weak oxygenation satisfactory Allergies ciprofloxacin [From Cipro] Allergy (Verified 04/27/20 14:32) UNK Penicillins Allergy (Verified 04/27/20 14:32) UNK Home Medications: Ascorbic Acid [Vitamin C*] 1,000 mg PO DAILY 04/27/20 Carvedilol [Coreg] 25 mg PO BID 04/27/20 Cholecalciferol (Vitamin D3) [Vitamin D 1000 Iu Tab] 2,000 unit PO DAILY 04/27/20 Cyanocobalamin (Vitamin B-12) [Vitamin B-12] 1,000 mcg PO DAILY 04/27/20 Digoxin 125 mcg PO DAILY 04/27/20 Famotidine [Pepcid] 20 mg PO DAILY 04/27/20 Lisinopril [Zestril] 5 mg PO DAILY 04/27/20 Rivaroxaban [Xarelto*] 10 mg PO DAILY 04/27/20 Spironolactone 25 mg PO DAILY 04/27/20 hydroCHLOROthiazide [Hydrochlorothiazide] 12.5 mg PO DAILY 04/27/20 predniSONE [Prednisone] 0 mg PO DAILY 04/27/20 - Past Medical/Surgical History Diabetic: No -: Hypertension -: Systolic CHF -: History of defibrillator -: 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 -: History of Hodgkin's lymphoma with prior chemo/rad -: ICD placed -: port placement -: hernia repair -: cholecystectomy -: retna attached Psychosocial/ Personal History: Patient lives at home - Social History Alcohol use: Yes CD- Drugs: No Caffeine use: No Place of Residence: Home Review of Systems General: Weakness Eyes: Redness Respiratory: Cough Physical Examination Temp Pulse Resp BP Pulse Ox 97.9 F 85 30 H 111/56 L 89 L 04/29/20 08:00 04/29/20 10:38 04/29/20 08:00 04/29/20 10:38 04/29/20 08:00 General: Alert, Moderate distress Respiratory: Clear to auscultation bilaterally, Diminished Cardiovascular: No edema, Regular rate/rhythm - Problems (1) Acute respiratory failure due to severe acute respiratory syndrome coronavirus 2 (SARS-CoV-2) infection Current Visit: Yes Status: Acute Plan: Patient is 59 years of age admitted with progressive dyspnea she has minimal interstitial changes from benítez virus infection ferritin levels are mildly elevated patient is receiving Remdesmir chemistries reviewed need aggressive control of blood sugar possible discharge tomorrow on oxygen
[2020-04-29] MEDS: MELATONIN 5 MG TABLET PO SCH (21:11)
[2020-04-29] MEDS: ALPRAZOLAM 0.25 MG TABLET PO PRN (21:11)
[2020-04-30] MEDS: METHYLPREDNISOLONE 125 MG INJ IV SCH ×3 (01:06→18:35)
[2020-04-30 03:58] LABS: Basophils % 0.1 % (0-1.3); Lymphocytes % 9.4 % (15.3-44.8); MPV 9.2 fL (7.6-11.3); RBC Red Blood Cell Count 4.34 M/uL (3.86-4.86)
[2020-04-30 04:22] LABS: Albumin 2.8 g/dL (3.4-5.0); Bilirubin Total 0.6 mg/dL (0.2-1.0); Ferritin 757.6 ng/mL (8-388); Magnesium 2.5 mg/dL (1.8-2.4); Potassium 4.8 mmol/L (3.5-5.1); Protein, Total 7.6 g/dL (6.4-8.2)
[2020-04-30] MEDS: carvediloL 25 MG TAB PO SCH ×2 (05:31→18:35)
[2020-04-30] MEDS: DIGOXIN 0.125 MG TABLET PO SCH (10:14)
[2020-04-30] MEDS: RIVAROXABAN 10 MG TABLET PO SCH (10:14)
[2020-04-30] MEDS: ZINC SULFATE 220 MG CAP PO SCH (10:14)
[2020-04-30] MEDS: MULTIVITAMIN TAB PO SCH (10:14)
[2020-04-30] MEDS: lisinopriL 5 MG TAB PO SCH (10:14)
[2020-04-30] MEDS: CYANOCOBALAMIN 1,000 MCG TAB PO SCH (10:14)
[2020-04-30] MEDS: FAMOTIDINE 20 MG TAB PO SCH (10:14)
[2020-04-30] MEDS: SPIRONOLACTONE 25 MG TABLET PO SCH (10:15)
[2020-04-30] MEDS: hydroCHLOROthiazide 12.5 MG CAP PO SCH (10:15)
[2020-04-30] MEDS: ASCORBIC ACID 500 MG TABLET PO SCH ×3 (10:15→19:50)
[2020-04-30] MEDS: VITAMIN D 1000 UNIT TAB PO SCH (10:16)
[2020-04-30] MEDS: Remdesivir 100 MG in NA CHLORIDE 0.9% 250 ML IV SCH (14:47)
[2020-04-30] MEDS ORDERED: BENZONATATE 100 MG CAP PO PRN (18:06)
[2020-04-30] MEDS ORDERED: MORPHINE 2 MG/ML SYR IV PRN (18:06)
[2020-04-30] MEDS ORDERED: ALBUTEROL INHALER 60 PUFF/8 GM IH PRN (18:06)
[2020-04-30] MEDS: MELATONIN 5 MG TABLET PO SCH (19:50)
[2020-04-30] MEDS: ALPRAZOLAM 0.25 MG TABLET PO PRN (19:50)
[2020-05-01] MEDS: METHYLPREDNISOLONE 125 MG INJ IV SCH ×2 (00:37→10:56)
[2020-05-01 03:58] LABS: Absolute Lymphocytes (CBC) 0.8 K/uL (0.7-4.9); Basophils % 0.3 % (0-1.3); Lymphocytes % 7.8 % (15.3-44.8); MPV 9.1 fL (7.6-11.3); RBC Red Blood Cell Count 4.34 M/uL (3.86-4.86)
[2020-05-01 04:17] LABS: Albumin 2.7 g/dL (3.4-5.0); Bilirubin Total 0.6 mg/dL (0.2-1.0); C-Reactive Protein 11.8 mg/L (<3.00); Ferritin 767.7 ng/mL (8-388); Magnesium 2.5 mg/dL (1.8-2.4); Phosphorus 3.7 mg/dL (2.5-4.9); Potassium 4.6 mmol/L (3.5-5.1); Protein, Total 7.2 g/dL (6.4-8.2)
[2020-05-01] MEDS: carvediloL 25 MG TAB PO SCH ×2 (04:58→18:05)
--- NOTE | 2020-05-01 09:58 | P.PN ---
Subjective Date of Service: 04/30/20 Chief Complaint: 1 Patient still with significant tachypnea. Oxygen saturations at 5 L are 94%. Finished day 2 of remdesivir Review of Systems 10-point ROS is otherwise unremarkable Physical Examination - Vital Signs Temperature: 96.8 F Blood Pressure: 131/60 Pulse: 71 Respirations: 18 Pulse Ox (%): 94 - Physical Exam General: Alert, In no apparent distress, Oriented x3 Respiratory: Diminished, Expiratory wheezes, Rhonchi/gurgles Cardiovascular: Regular rate/rhythm, Normal S1 S2, No murmurs Gastrointestinal: Normal bowel sounds, Soft and benign, Non-distended, No tende rness Musculoskeletal: No clubbing, No swelling, No tenderness Neurological: Sensation intact, Cranial nerves 3-12 intact - Studies Medications List Reviewed: Yes Assessment & Plan - Problems (Diagnosis) (1) Acute respiratory failure due to severe acute respiratory syndrome coronavirus 2 (SARS-CoV-2) infection Current Visit: Yes Status: Acute - Plan 1. Continue with IV antibiotics 2. COVID-19 pneumonia 3. Repeat chest x-ray is symptoms are progressively worsening 4. O2 per protocol 5. Pulmonary consultation 6. Continue with albuterol inhaler therapy; IV steroids; zinc and vitamin-C 7. O2 per protocol 8. Monitor LFTs 9. Repeat labs including D-dimer, ferritin, and CRP and LFTs 10. GI and DVT prophylaxis Discharge Plan: Home Plan to discharge in: Greater than 2 days - Advance Directives Does patient have a Living Will: No Does patient have a Durable POA for Healthcare: No - Code Status/Comfort Care Code Status Assessed: Yes Code Status: Full Code Critical Care: No Time Spent Managing PTS Care (In Minutes): 35
[2020-05-01] MEDS: FAMOTIDINE 20 MG TAB PO SCH (10:54)
[2020-05-01] MEDS: CYANOCOBALAMIN 1,000 MCG TAB PO SCH (10:54)
[2020-05-01] MEDS: SPIRONOLACTONE 25 MG TABLET PO SCH (10:54)
[2020-05-01] MEDS: lisinopriL 5 MG TAB PO SCH (10:54)
[2020-05-01] MEDS: ASCORBIC ACID 500 MG TABLET PO SCH ×3 (10:54→20:07)
[2020-05-01] MEDS: RIVAROXABAN 10 MG TABLET PO SCH (10:55)
[2020-05-01] MEDS: VITAMIN D 1000 UNIT TAB PO SCH (10:55)
[2020-05-01] MEDS: DIGOXIN 0.125 MG TABLET PO SCH (10:55)
[2020-05-01] MEDS: hydroCHLOROthiazide 12.5 MG CAP PO SCH (10:55)
[2020-05-01] MEDS: MULTIVITAMIN TAB PO SCH (10:56)
[2020-05-01] MEDS: ZINC SULFATE 220 MG CAP PO SCH (10:56)
--- NOTE | 2020-05-01 11:52 | P.PN ---
Subjective Date of Service: 05/01/20 Primary Care Provider: Dr. Childs Chief Complaint: Respiratory failure Subjective: Improving (Patient is improving still feeling weak today was feeling better yesterday) Review of Systems General: Weakness Respiratory: Shortness of Breath Physical Examination - Vital Signs Temperature: 96.8 F Blood Pressure: 131/60 Pulse: 71 Respirations: 18 Pulse Ox (%): 94 - Physical Exam General: Alert, Mild distress Respiratory: Clear to auscultation bilaterally, Diminished - Studies Medications List Reviewed: Yes Assessment & Plan - Problems (Diagnosis) (1) Acute respiratory failure due to severe acute respiratory syndrome coronavirus 2 (SARS-CoV-2) infection Current Visit: Yes Status: Acute Plan: Respiratory failure from benítez virus finishing a course of Remdesmir. Patient is tolerating nasal cannula oxygen white count is normal reduce dose of Solu- Medrol possible discharge tomorrow prednisone 20 b.i.d. for a week then 10 b.i.d.
[2020-05-01] MEDS: Remdesivir 100 MG in NA CHLORIDE 0.9% 250 ML IV SCH (12:49)
[2020-05-01] MEDS: METHYLPREDNISOLONE 40 MG INJ IV SCH (18:05)
[2020-05-01] MEDS: MELATONIN 5 MG TABLET PO SCH (20:07)
[2020-05-01] MEDS: ALPRAZOLAM 0.25 MG TABLET PO PRN (20:07)
[2020-05-02] MEDS: METHYLPREDNISOLONE 40 MG INJ IV SCH ×3 (00:19→18:18)
[2020-05-02] MEDS: carvediloL 25 MG TAB PO SCH ×2 (05:46→18:18)
[2020-05-02 06:37] LABS: C-Reactive Protein 5.16 mg/L (<3.00); Ferritin 777.9 ng/mL (8-388)
[2020-05-02 08:09] LABS: Albumin 2.8 g/dL (3.4-5.0); Bilirubin Direct 0.2 mg/dL (0-0.2); Bilirubin Total 0.6 mg/dL (0.2-1.0); Protein, Total 7.2 g/dL (6.4-8.2)
[2020-05-02] MEDS: lisinopriL 5 MG TAB PO SCH (08:50)
[2020-05-02] MEDS: FAMOTIDINE 20 MG TAB PO SCH (08:50)
[2020-05-02] MEDS: RIVAROXABAN 10 MG TABLET PO SCH (08:50)
[2020-05-02] MEDS: VITAMIN D 1000 UNIT TAB PO SCH (08:50)
[2020-05-02] MEDS: SPIRONOLACTONE 25 MG TABLET PO SCH (08:51)
[2020-05-02] MEDS: CYANOCOBALAMIN 1,000 MCG TAB PO SCH (08:51)
[2020-05-02] MEDS: ZINC SULFATE 220 MG CAP PO SCH (08:51)
[2020-05-02] MEDS: ASCORBIC ACID 500 MG TABLET PO SCH ×3 (08:51→20:02)
[2020-05-02] MEDS: MULTIVITAMIN TAB PO SCH (08:51)
[2020-05-02] MEDS: DIGOXIN 0.125 MG TABLET PO SCH (08:51)
[2020-05-02] MEDS: hydroCHLOROthiazide 12.5 MG CAP PO SCH (08:52)
[2020-05-02] MEDS: Remdesivir 100 MG in NA CHLORIDE 0.9% 250 ML IV SCH (10:49)
[2020-05-02] MEDS: FLUTICASONE 50MCG NASAL SPRAY NAS SCH ×2 (10:49→20:02)
--- NOTE | 2020-05-02 15:36 | P.PN ---
Subjective Date of Service: 05/01/20 PATIENT STILL TACHYPNEIC. SHE IS AT BEDSIDE WITH HER . DAY 3 OF REMDESIVIR COMPLETED TODAY. REMAINS HYPOXIC. ARRANGE FOR HOME OXYGEN AND HOPEFULLY WE CAN GO HOME OVER THE NEXT 48-72 HR. Review of Systems 10-point ROS is otherwise unremarkable Physical Examination - Vital Signs Temperature: 97.5 F Blood Pressure: 118/57 Pulse: 76 Respirations: 32 Pulse Ox (%): 91 - Physical Exam General: Alert, In no apparent distress, Oriented x3 Respiratory: Clear to auscultation bilaterally, Normal air movement Cardiovascular: Regular rate/rhythm, Normal S1 S2, No murmurs Gastrointestinal: Normal bowel sounds, Soft and benign, Non-distended, No tenderness Musculoskeletal: No clubbing, No swelling, No tenderness Neurological: Sensation intact, Cranial nerves 3-12 intact - Studies Microbiology Data (last 24 hrs): 04/27/20 14:52 Blood - Blood Aerobic Blood Culture - Final No growth in 5 days. 04/27/20 14:52 Blood - Blood Anaerobic Blood Culture - Final No growth in 5 days. Medications List Reviewed: Yes Assessment & Plan - Problems (Diagnosis) (1) Acute respiratory failure due to severe acute respiratory syndrome coronavirus 2 (SARS-CoV-2) infection Current Visit: Yes Status: Acute - Plan 1. Continue with antiviral therapy 2. Monitor oxygenation 3. Repeat chest x-ray is symptoms are progressively worsening 4. Pulmonary consultation 5. Continue with albuterol inhaler therapy; IV steroids; zinc and vitamin-C 6. Currently on O2 per nasal cannula and will continue to monitor 7. Monitor LFTs 8. Repeat labs including D-dimer, ferritin, and CRP and LFTs 9. GI and DVT prophylaxis Discharge Plan: Home Plan to discharge in: Greater than 2 days - Advance Directives Does patient have a Living Will: No Does patient have a Durable POA for Healthcare: No - Code Status/Comfort Care Code Status: Full Code Critical Care: No Time Spent Managing PTS Care (In Minutes): 35
[2020-05-02] MEDS: ALPRAZOLAM 0.25 MG TABLET PO PRN (20:02)
[2020-05-02] MEDS: MELATONIN 5 MG TABLET PO SCH (20:02)
[2020-05-03] MEDS: METHYLPREDNISOLONE 40 MG INJ IV SCH ×3 (00:24→17:42)
[2020-05-03 04:20] LABS: Albumin 2.7 g/dL (3.4-5.0); Bilirubin Direct 0.2 mg/dL (0-0.2); Bilirubin Total 0.7 mg/dL (0.2-1.0); Protein, Total 6.9 g/dL (6.4-8.2)
[2020-05-03 04:21] LABS: C-Reactive Protein 3.35 mg/L (<3.00); Ferritin 808.3 ng/mL (8-388); Magnesium 2.4 mg/dL (1.8-2.4); Potassium 4.4 mmol/L (3.5-5.1)
[2020-05-03] MEDS: carvediloL 25 MG TAB PO SCH ×2 (05:09→17:42)
[2020-05-03] MEDS: lisinopriL 5 MG TAB PO SCH (09:00)
[2020-05-03] MEDS: SPIRONOLACTONE 25 MG TABLET PO SCH (09:00)
[2020-05-03] MEDS: hydroCHLOROthiazide 12.5 MG CAP PO SCH (09:00)
[2020-05-03] MEDS: ZINC SULFATE 220 MG CAP PO SCH (09:38)
[2020-05-03] MEDS: CYANOCOBALAMIN 1,000 MCG TAB PO SCH (09:39)
[2020-05-03] MEDS: VITAMIN D 1000 UNIT TAB PO SCH (09:40)
[2020-05-03] MEDS: RIVAROXABAN 10 MG TABLET PO SCH (09:43)
[2020-05-03] MEDS: FAMOTIDINE 20 MG TAB PO SCH (09:43)
[2020-05-03] MEDS: MULTIVITAMIN TAB PO SCH (09:43)
[2020-05-03] MEDS: FLUTICASONE 50MCG NASAL SPRAY NAS SCH ×2 (09:43→20:44)
[2020-05-03] MEDS: ASCORBIC ACID 500 MG TABLET PO SCH ×3 (09:44→20:44)
[2020-05-03] MEDS: Remdesivir 100 MG in NA CHLORIDE 0.9% 250 ML IV SCH (09:44)
[2020-05-03] MEDS: DIGOXIN 0.125 MG TABLET PO SCH (09:46)
[2020-05-03] MEDS ORDERED: IVERMECTIN 3 MG TABLETS PO ONE (14:30)
[2020-05-03] MEDS: MELATONIN 5 MG TABLET PO SCH (20:44)
[2020-05-03] MEDS: THIAMINE 200 MG/2 ML INJ IVP SCH (20:44)
[2020-05-03] MEDS: HYDROCODONE/CHLORPHEN 5 ML/OSYR PO PRN (20:47)
[2020-05-04] MEDS: METHYLPREDNISOLONE 40 MG INJ IV SCH ×3 (00:05→17:58)
[2020-05-04 06:48] LABS: Ferritin 816.1 ng/mL (8-388)
[2020-05-04 06:51] LABS: C-Reactive Protein < 2.90 mg/L (<3.00)
[2020-05-04] MEDS: carvediloL 25 MG TAB PO SCH ×2 (06:57→17:57)
[2020-05-04] MEDS: ZINC SULFATE 220 MG CAP PO SCH (08:51)
[2020-05-04] MEDS: CYANOCOBALAMIN 1,000 MCG TAB PO SCH (08:51)
[2020-05-04] MEDS: RIVAROXABAN 15 MG TABLET PO SCH (08:51)
[2020-05-04] MEDS: DIGOXIN 0.125 MG TABLET PO SCH (08:51)
[2020-05-04] MEDS: FLUTICASONE 50MCG NASAL SPRAY NAS SCH ×2 (08:51→21:22)
[2020-05-04] MEDS: lisinopriL 5 MG TAB PO SCH (08:52)
[2020-05-04] MEDS: hydroCHLOROthiazide 12.5 MG CAP PO SCH (08:52)
[2020-05-04] MEDS: VITAMIN D 1000 UNIT TAB PO SCH (08:52)
[2020-05-04] MEDS: SPIRONOLACTONE 25 MG TABLET PO SCH (08:52)
[2020-05-04] MEDS: MULTIVITAMIN TAB PO SCH (08:52)
[2020-05-04] MEDS: FAMOTIDINE 20 MG TAB PO SCH (08:52)
[2020-05-04] MEDS: ASCORBIC ACID 500 MG TABLET PO SCH ×3 (08:52→21:22)
[2020-05-04] MEDS: THIAMINE 200 MG/2 ML INJ IVP SCH ×2 (08:53→21:22)
--- NOTE | 2020-05-04 11:36 | P.PN ---
Subjective Date of Service: 05/02/20 PATIENT FEELING BETTER WITH NO NEW COMPLAINTS. DAY 4/5 OF REMDESIVIR COMPLETED TODAY. REMAINS HYPOXIC. ARRANGING FOR HOME OXYGEN AND HOPEFULLY WE CAN GO HOME OVER THE NEXT 2-3 HR. FEELS ANXIOUS AT TIMES WELL Review of Systems 10-point ROS is otherwise unremarkable Physical Examination - Vital Signs Temperature: 97 F Blood Pressure: 122/56 Pulse: 72 Respirations: 18 Pulse Ox (%): 92 - Physical Exam General: Alert, In no apparent distress, Oriented x3 Respiratory: Diminished, Expiratory wheezes Cardiovascular: Regular rate/rhythm, Normal S1 S2, No murmurs Gastrointestinal: Normal bowel sounds, Soft and benign, Non-distended, No tenderness Musculoskeletal: No clubbing, No swelling Neurological: Sensation intact, Cranial nerves 3-12 intact, Abnormal strength Lymphatics: No axilla or inguinal lymphadenopathy - Studies Medications List Reviewed: Yes Assessment & Plan - Problems (Diagnosis) (1) Acute respiratory failure due to severe acute respiratory syndrome coronavirus 2 (SARS-CoV-2) infection Current Visit: Yes Status: Acute - Plan Continue with POC 1. Continue with antiviral therapy-07/23 2. Monitor oxygenation; requiring 6L O2 3. Pulmonary consultation appreciated 4. Continue with supportive care: albuterol inhaler therapy; IV steroids; tessalon, zinc and vitamin-C 6. Monitor LFTs 7. Check inflammatory markers 8. GI and DVT prophylaxis Discharge Plan: Home Plan to discharge in: Greater than 2 days - Advance Directives Does patient have a Living Will: No Does patient have a Durable POA for Healthcare: No - Code Status/Comfort Care Code Status: Full Code Critical Care: No Time Spent Managing PTS Care (In Minutes): 35
--- NOTE | 2020-05-04 11:40 | P.PN ---
Date of Service: 05/03/20 Subjective sYMPTOMS IMPROVING; DAY 08/22 OF REMDESIVIR COMPLETED TODAY. REMAINS HYPOXIC-92% AT 2L. ARRANGING FOR HOME OXYGEN AND HOPEFULLY WE CAN GO HOME OVER THE NEXT 2-3 HR. FEELS ANXIOUS AT TIMES WELL Review of Systems 10-point ROS is otherwise unremarkable Physical Examination - Vital Signs reviewed - Physical Exam General: Alert, In no apparent distress, Oriented x3 Respiratory: Diminished, Expiratory wheezes Cardiovascular: Regular rate/rhythm, Normal S1 S2, No murmurs Gastrointestinal: Normal bowel sounds, Soft and benign, Non-distended, No tenderness Musculoskeletal: No clubbing, No swelling Neurological: Sensation intact, Cranial nerves 3-12 intact, Abnormal strength Lymphatics: No axilla or inguinal lymphadenopathy Assessment & Plan - Problems (Diagnosis) (1) Acute respiratory failure due to severe acute respiratory syndrome coronavirus 2 (SARS-CoV-2) infection Current Visit: Yes Status: Acute - Plan Continue with POC 1. Continue with antiviral therapy-08/22 2. Monitor oxygenation; requiring 6L O2 3. Pulmonary consultation appreciated 4. Continue with supportive care: albuterol inhaler therapy; IV steroids; tessalon pearles, zinc and vitamin-C 5. Monitor LFTs 6. Check inflammatory markers 7. GI and DVT prophylaxis Discharge Plan: Home Plan to discharge in: Greater than 2 days - Advance Directives Does patient have a Living Will: No Does patient have a Durable POA for Healthcare: No - Code Status/Comfort Care Code Status: Full Code Critical Care: No Time Spent Managing PTS Care (In Minutes): 35
[2020-05-04] MEDS: MELATONIN 5 MG TABLET PO SCH (21:22)
[2020-05-04] MEDS: HYDROCODONE/CHLORPHEN 5 ML/OSYR PO PRN (21:23)
[2020-05-05] MEDS: METHYLPREDNISOLONE 40 MG INJ IV SCH ×3 (00:50→17:36)
[2020-05-05] MEDS: carvediloL 25 MG TAB PO SCH ×2 (06:00→17:36)
[2020-05-05 07:13] LABS: Absolute Lymphocytes (CBC) 0.7 K/uL (0.7-4.9); Basophils % 0.3 % (0-1.3); Hematocrit 40.1 % (36.0-45.0); Lymphocytes % 4.7 % (15.3-44.8); MPV 9.4 fL (7.6-11.3); RBC Red Blood Cell Count 4.68 M/uL (3.86-4.86)
[2020-05-05 07:21] LABS: ALT/SGPT 32 U/L (12-78); AST/SGOT 15 U/L (15-37); Albumin 2.6 g/dL (3.4-5.0); Alkaline Phosphatase 63 U/L (45-117); BUN Blood Urea Nitrogen 26 mg/dL (7-18); Bicarbonate 31 mmol/L (21-32); Bilirubin Total 0.9 mg/dL (0.2-1.0); Ferritin 892.4 ng/mL (8-388); Glucose Level 289 mg/dL (74-106); Magnesium 2.6 mg/dL (1.8-2.4); NT PRO-BNP 174 pg/mL (<125); Phosphorus 3.8 mg/dL (2.5-4.9); Potassium 5.2 mmol/L (3.5-5.1); Protein, Total 6.5 g/dL (6.4-8.2); Sodium Level 130 mmol/L (136-145)
[2020-05-05 07:26] LABS: C-Reactive Protein < 2.90 mg/L (<3.00)
[2020-05-05] MEDS: THIAMINE 200 MG/2 ML INJ IVP SCH ×2 (09:00→19:21)
[2020-05-05] MEDS: VITAMIN D 1000 UNIT TAB PO SCH (09:36)
[2020-05-05] MEDS: FAMOTIDINE 20 MG TAB PO SCH (09:37)
[2020-05-05] MEDS: hydroCHLOROthiazide 12.5 MG CAP PO SCH (09:37)
[2020-05-05] MEDS: MULTIVITAMIN TAB PO SCH (09:37)
[2020-05-05] MEDS: ZINC SULFATE 220 MG CAP PO SCH (09:37)
[2020-05-05] MEDS: DIGOXIN 0.125 MG TABLET PO SCH (09:37)
[2020-05-05] MEDS: CYANOCOBALAMIN 1,000 MCG TAB PO SCH (09:37)
[2020-05-05] MEDS: ASCORBIC ACID 500 MG TABLET PO SCH ×3 (09:37→19:22)
[2020-05-05] MEDS: lisinopriL 5 MG TAB PO SCH (09:37)
[2020-05-05] MEDS: FLUTICASONE 50MCG NASAL SPRAY NAS SCH ×2 (09:38→19:21)
[2020-05-05] MEDS: RIVAROXABAN 15 MG TABLET PO SCH (09:42)
[2020-05-05] MEDS: SPIRONOLACTONE 25 MG TABLET PO SCH (09:42)
[2020-05-05 10:42] LABS: Platelet Estimate ADEQ
[2020-05-05 10:43] LABS: Blood Morphology Comment NOT SEEN (NOT SEEN)
[2020-05-05] MEDS ORDERED: FUROSEMIDE 20 MG TABLET PO ONE (12:04)
--- NOTE | 2020-05-05 12:17 | RAD REPORT ---
EXAM DESCRIPTION: RAD - Chest Single View - 05/05/2020 5:50 am CLINICAL HISTORY: pneumonia Chest pain. COMPARISON: Chest Single View dated 04/29/2020; Chest Single View dated 04/27/2020; CHEST PA AND LAT 2 VIEW dated 09/25/2010; CHEST PA AND LAT 2 VIEW dated 11/18/2000 FINDINGS: Portable technique limits examination quality. Mild bilateral interstitial lung opacities are present, stable since prior study. The heart is normal in size. Multilead pacer/defibrillator device is present. IMPRESSION: Stable chest since 04/29/2020.
[2020-05-05] MEDS: MELATONIN 5 MG TABLET PO SCH (19:22)
[2020-05-05] MEDS: HYDROCODONE/CHLORPHEN 5 ML/OSYR PO PRN (19:22)
[2020-05-06] MEDS: METHYLPREDNISOLONE 40 MG INJ IV SCH ×3 (00:47→20:03)
[2020-05-06] MEDS: carvediloL 25 MG TAB PO SCH (06:00)
--- NOTE | 2020-05-06 07:54 | RAD REPORT ---
EXAM DESCRIPTION: RAD - Foot Left 2 View - 05/06/2020 6:24 am CLINICAL HISTORY: fall with L great toe pain COMPARISON: None. FINDINGS: No fracture of the first toe identifiable on two view imaging. Mild joint space narrowing at first MTP joint seen. A large accessory ossicle is present adjacent to the tarsal navicular bone. A fracture at this site is not suspected. Correlation can be made with any pain in the medial left mi d foot. Patient has small plantar spur. No pathologic or destructive process. No air or foreign body in the soft tissues. IMPRESSION: No fracture of the left first toe identifiable at this time. Repeat imaging in 7 days co uld be performed if the patient remains symptomatic for possible fracture.
[2020-05-06] MEDS: VITAMIN D 1000 UNIT TAB PO SCH (08:36)
[2020-05-06] MEDS: ZINC SULFATE 220 MG CAP PO SCH (08:37)
[2020-05-06] MEDS: DIGOXIN 0.125 MG TABLET PO SCH (08:37)
[2020-05-06] MEDS: FAMOTIDINE 20 MG TAB PO SCH (08:37)
[2020-05-06] MEDS: RIVAROXABAN 15 MG TABLET PO SCH (08:37)
[2020-05-06] MEDS: CYANOCOBALAMIN 1,000 MCG TAB PO SCH (08:37)
[2020-05-06] MEDS: MULTIVITAMIN TAB PO SCH (08:37)
[2020-05-06] MEDS: FLUTICASONE 50MCG NASAL SPRAY NAS SCH ×2 (08:38→20:05)
[2020-05-06] MEDS: hydroCHLOROthiazide 12.5 MG CAP PO SCH (08:38)
[2020-05-06] MEDS: lisinopriL 5 MG TAB PO SCH (08:38)
[2020-05-06] MEDS: THIAMINE 200 MG/2 ML INJ IVP SCH ×2 (08:39→20:05)
[2020-05-06] MEDS: ASCORBIC ACID 500 MG TABLET PO SCH ×3 (08:53→20:03)
[2020-05-06] MEDS ORDERED: FUROSEMIDE 20 MG TABLET PO SCH (09:00)
--- NOTE | 2020-05-06 15:06 | P.PN ---
Date of Service: 05/04/20 Subjective Patient' s respiratory status is better. Oxygenation has improved. She has finished Remdesivir. She still feels weak and she has had a fall. Continue to monitor her closely. Review of Systems 10-point ROS is otherwise unremarkable Physical Examination - Vital Signs reviewed - Physical Exam General: Alert, In no apparent distress, Oriented x3 Respiratory: Diminished, Expiratory wheezes Cardiovascular: Regular rate/rhythm, Normal S1 S2, No murmurs Gastrointestinal: Normal bowel sounds, Soft and benign, Non-distended, No tenderness Musculoskeletal: No clubbing, No swelling Neurological: Sensation intact, Cranial nerves 3-12 intact, Abnormal strength Lymphatics: No axilla or inguinal lymphadenopathy Assessment & Plan - Problems (Diagnosis) (1) Acute respiratory failure due to severe acute respiratory syndrome coronavirus 2 (SARS-CoV-2) infection Current Visit: Yes Status: Acute (2) s/p fall Current Visit: Yes Status: Acute - Plan Continue with POC 1. Finished antiviral therapy 2. Monitor oxygenation; requiring 3-4L O2 3. Pulmonary consultation appreciated 4. Continue with supportive care: albuterol inhaler therapy; IV steroids; tessalon pearles, zinc and vitamin-C 5. Monitor LFTs 6. May occasionally check inflammatory markers 7. GI and DVT prophylaxis Discharge Plan: Home Plan to discharge in: Greater than 2 days - Advance Directives Does patient have a Living Will: No Does patient have a Durable POA for Healthcare: No - Code Status/Comfort Care Code Status: Full Code Critical Care: No Time Spent Managing PTS Care (In Minutes): 35
--- NOTE | 2020-05-06 15:13 | P.PN ---
Date of Service: 05/05/20 Subjective Patient continues to slowly improve. She remains on 4 L of oxygen and gets really tachypneic. She does not feel like she is ready to go home. Review of Systems 10-point ROS is otherwise unremarkable Physical Examination - Vital Signs reviewed - Physical Exam General: Alert, In no apparent distress, Oriented x3 Respiratory: Diminished basilar breath sounds Cardiovascular: Regular rate/rhythm, Normal S1 S2, No murmurs Gastrointestinal: Normal bowel sounds, Soft and benign, Non-distended, No tenderness Musculoskeletal: No clubbing, No swelling Neurological: Sensation intact, Cranial nerves 3-12 intact, Abnormal strength Assessment & Plan - Problems (Diagnosis) (1) Acute respiratory failure due to severe acute respiratory syndrome coronavirus 2 (SARS-CoV-2) infection Current Visit: Yes Status: Acute (2) s/p fall Current Visit: Yes Status: Acute - Plan Continue with POC 1. Finished antiviral therapy 2. On 4 L of oxygen and will plan to discharge in the next 24 hr if she continues to improve 3. Continue with OOB and ambulate 4. Continue with supportive care: albuterol inhaler therapy; po steroids; tessalon pearles, zinc and vitamin-C 5. GI and DVT prophylaxis Patient was hyperkalemia. This was secondary to aldactone and this is being held. Discharge Plan: Home Plan to discharge in: 24hr - Advance Directives Does patient have a Living Will: No Does patient have a Durable POA for Healthcare: No - Code Status/Comfort Care Code Status: Full Code Critical Care: No Time Spent Managing PTS Care (In Minutes): 35
[2020-05-06 15:39] LABS: Absolute Lymphocytes (CBC) 0.8 K/uL (0.7-4.9); Basophils % 0.2 % (0-1.3); Hematocrit 43.4 % (36.0-45.0); Lymphocytes % 3.5 % (15.3-44.8); MPV 9.7 fL (7.6-11.3); RBC Red Blood Cell Count 5.02 M/uL (3.86-4.86)
[2020-05-06 16:07] LABS: Magnesium 2.6 mg/dL (1.8-2.4); Phosphorus 3.8 mg/dL (2.5-4.9); Potassium 4.8 mmol/L (3.5-5.1)
[2020-05-06 16:24] LABS: Blood Morphology Comment NOTED (NOT SEEN); Platelet Estimate ADEQ; Stomatocytes 1+
--- NOTE | 2020-05-06 16:55 | P.PN ---
Date of Service: 05/06/20 Subjective Patient states she is feeling dizzy. Patient may have fallen yesterday evening. Nurses have been with the patient. Patient states she still gets really short of breath on ambulation. Will give her a little bit of fluid since her labs indicate she is a little dehydrated. Will discontinue her HCTZ. Dc lisinopril. Monitor her hemodynamics very closely because of her cardiac history. Review of Systems 10-point ROS is otherwise unremarkable Physical Examination - Vital Signs reviewed - Physical Exam General: Alert, In no apparent distress, Oriented x3 Respiratory: Diminished basilar breath sounds Cardiovascular: Regular rate/rhythm, Normal S1 S2, No murmurs Gastrointestinal: Normal bowel sounds, Soft and benign, Non-distended, No tenderness Musculoskeletal: No clubbing, No swelling Neurological: Sensation intact, Cranial nerves 3-12 intact, Abnormal strength Assessment & Plan - Problems (Diagnosis) (1) Acute respiratory failure due to severe acute respiratory syndrome coronavirus 2 (SARS-CoV-2) infection Current Visit: Yes Status: Acute (2) s/p fall Current Visit: Yes Status: Acute (3) Acute dehydration/hyponatremia Current Visit: Yes Status: Acute (4) history of cardiomyopathy Current Visit: Yes Status: Chronic (5) history of lymphoma Current Visit: Yes Status: Chronic - Plan Continue with POC 1. Finished antiviral therapy 2. On 4 L of oxygen and will plan to discharge in the next 24 hr if she continues to improve 3. Continue with OOB and ambulate 4. Continue with supportive care: albuterol inhaler therapy; po steroids; tessalon pearles, zinc and vitamin-C 5. Monitor hemodynamics closely. Gently hydrate the patient as she appears to be dehydrated. Discontinued hydrochlorothiazide. Get an echocardiogram to reassess her cardiac functioning. Adjust blood pressure medications as well 6. GI and DVT prophylaxis Patient was hyperkalemia. This was secondary to aldactone and this is being held. Discharge Plan: Home Plan to discharge in: 24hr - Advance Directives Does patient have a Living Will: No Does patient have a Durable POA for Healthcare: No - Code Status/Comfort Care Code Status: Full Code Critical Care: No Time Spent Managing PTS Care (In Minutes): 35
[2020-05-06] MEDS: NA CHLORIDE 0.9% 1,000 ML IV SCH (17:01)
[2020-05-06] MEDS: carvediloL 12.5 MG TAB PO SCH (17:03)
[2020-05-06] MEDS: HYDROCODONE/CHLORPHEN 5 ML/OSYR PO PRN (18:25)
[2020-05-06] MEDS ORDERED: GLUCAGON 1 MG/VIAL IM PRN (18:38)
[2020-05-06] MEDS ORDERED: D50W 25 GM/50 ML SYRINGE IV PRN (18:38)
[2020-05-06] MEDS ORDERED: ALPRAZOLAM 0.5 MG TABLET PO ONE (19:31)
[2020-05-06] MEDS: MELATONIN 5 MG TABLET PO SCH (20:05)
[2020-05-06] MEDS: INSULIN -REGULAR HUMAN 50 UNIT/0.5 ML ML SQ SCH (20:15)
[2020-05-06] MEDS ORDERED: INSULIN -REGULAR HUMAN 50 UNIT/0.5 ML ML SQ SCH (21:00)
[2020-05-07 04:09] LABS: Absolute Lymphocytes (CBC) 0.9 K/uL (0.7-4.9); Basophils % 0.3 % (0-1.3); Hematocrit 40.1 % (36.0-45.0); Lymphocytes % 5.3 % (15.3-44.8); MPV 9.7 fL (7.6-11.3); RBC Red Blood Cell Count 4.67 M/uL (3.86-4.86)
[2020-05-07 04:36] LABS: Magnesium 2.3 mg/dL (1.8-2.4); Potassium 4.3 mmol/L (3.5-5.1)
[2020-05-07] MEDS: NA CHLORIDE 0.9% 1,000 ML IV SCH (04:58)
[2020-05-07] MEDS: carvediloL 12.5 MG TAB PO SCH ×2 (05:11→17:16)
--- NOTE | 2020-05-07 07:41 | RAD REPORT ---
EXAM DESCRIPTION: RAD - Chest Single View - 05/07/2020 4:35 am CLINICAL HISTORY: pneumonia COMPARISON: Portable May 05 TECHNIQUE: AP portable chest image was obtained 05/07/2020 4:35 am . FINDINGS: Bilateral lung parenchymal opacification is present not substantially different from the c omparison. Progression is not suspected. Lung volumes remain quite low. Trachea is midline. Trachea/defibrillator overlies the left side chest. Heart and vasculature are nor mal. No measurable pleural effusion and no pneumothorax. No acute bony abnormality seen. No acute aor tic findings suspected. IMPRESSION: Stable appearance of the chest since May 05.
[2020-05-07] MEDS: DIGOXIN 0.125 MG TABLET PO SCH (08:48)
[2020-05-07] MEDS: VITAMIN D 1000 UNIT TAB PO SCH (08:48)
[2020-05-07] MEDS: MULTIVITAMIN TAB PO SCH (08:49)
[2020-05-07] MEDS: FAMOTIDINE 20 MG TAB PO SCH (08:49)
[2020-05-07] MEDS: ASCORBIC ACID 500 MG TABLET PO SCH ×3 (08:49→19:54)
[2020-05-07] MEDS: RIVAROXABAN 15 MG TABLET PO SCH (08:49)
[2020-05-07] MEDS: ZINC SULFATE 220 MG CAP PO SCH (08:49)
[2020-05-07] MEDS: INSULIN -REGULAR HUMAN 50 UNIT/0.5 ML ML SQ SCH ×4 (08:49→21:26)
[2020-05-07] MEDS: CYANOCOBALAMIN 1,000 MCG TAB PO SCH (08:49)
[2020-05-07] MEDS: METHYLPREDNISOLONE 40 MG INJ IV SCH ×2 (08:50→19:53)
[2020-05-07] MEDS: THIAMINE 200 MG/2 ML INJ IVP SCH ×4 (08:51→20:55)
[2020-05-07] MEDS: FLUTICASONE 50MCG NASAL SPRAY NAS SCH ×2 (08:52→19:53)
--- NOTE | 2020-05-07 16:10 | P.PN ---
Subjective Date of Service: 05/07/20 Primary Care Provider: Dr. Childs Chief Complaint: Respiratory failure Subjective: Improving (Still with increased fatigue. Currently on 4 L per nasal cannula. Patient reported fall over the weekend.) Physical Examination - Vital Signs Temperature: 97.0 F Blood Pressure: 122/58 Pulse: 72 Respirations: 17 Pulse Ox (%): 95 - Physical Exam General: Alert, In no apparent distress, Oriented x3, Cooperative, Other (Appears depressed) Neck: Supple Respiratory: Other (Patient on 4 L per nasal cannula) Cardiovascular: Normal pulses, Regular rate/rhythm Neurological: Normal speech, Normal strength at 5/5 x4 extr, Normal tone, Abnormal affect (Flat affect) - Studies Medications List Reviewed: Yes Assessment & Plan Discharge Plan: Home Plan to discharge in: 24 Hours Physician Review Additional Text: Impression: Dyspnea secondary acute respiratory failure related to Bilateral COVID 19 pneumonia Hypertension 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 Continue with IV Solu- Medrol. Encourage ambulation. Encourage incentive spirometer. Respiratory to wean off oxygen. Patient needs to ambulate. Will need to monitor for desaturations when ambulating. Anticipate improvement over the next 24 hr with possible discharge. Hypertension: Continue home medication of carvedilol and lisinopril. Will monitor and adjust appropriately. Medications have been adjusted. No longer on Aldactone or hydrochlorothiazide. 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 Patient on IV Solu-Medrol. Patient medication from home includes prednisone 2.5 mg daily. Chronic systolic CHF: Patient was dehydrated and required fluids. No longer on Aldactone or hydrochlorothiazide. Will monitor closely. Discontinue IV fluids. Hyperglycemia secondary to IV steroids: Will monitor this closely. Patient may require medication if elevated. GERD: Continue medication Time Spent Managing Pts Care (In Minutes): 55
[2020-05-07] MEDS: MELATONIN 5 MG TABLET PO SCH (19:53)
[2020-05-07] MEDS: HYDROCODONE/CHLORPHEN 5 ML/OSYR PO PRN (19:54)
[2020-05-07] MEDS ORDERED: ALPRAZOLAM 0.5 MG TABLET PO ONE (20:32)
[2020-05-08] MEDS: HYDROCODONE/CHLORPHEN 5 ML/OSYR PO PRN (00:41)
[2020-05-08] MEDS: carvediloL 12.5 MG TAB PO SCH (05:37)
[2020-05-08 07:14] LABS: Ferritin 913.6 ng/mL (8-388)
[2020-05-08 07:43] LABS: C-Reactive Protein < 2.90 mg/L (<3.00)
[2020-05-08] MEDS: ASCORBIC ACID 500 MG TABLET PO SCH (09:00)
[2020-05-08] MEDS: MULTIVITAMIN TAB PO SCH (09:03)
[2020-05-08] MEDS: DIGOXIN 0.125 MG TABLET PO SCH (09:03)
[2020-05-08] MEDS: METHYLPREDNISOLONE 40 MG INJ IV SCH (09:03)
[2020-05-08] MEDS: RIVAROXABAN 15 MG TABLET PO SCH (09:03)
[2020-05-08] MEDS: FAMOTIDINE 20 MG TAB PO SCH (09:04)
[2020-05-08] MEDS: VITAMIN D 1000 UNIT TAB PO SCH (09:05)
[2020-05-08] MEDS: INSULIN -REGULAR HUMAN 50 UNIT/0.5 ML ML SQ SCH ×2 (09:05→12:37)
[2020-05-08] MEDS: CYANOCOBALAMIN 1,000 MCG TAB PO SCH (09:05)
[2020-05-08] MEDS: ZINC SULFATE 220 MG CAP PO SCH (09:05)
[2020-05-08] MEDS: FLUTICASONE 50MCG NASAL SPRAY NAS SCH (09:06)
--- NOTE | 2020-05-08 10:54 | P.DS ---
Admission Date: 04/28/20 Discharge Date: 05/08/20 Primary Care Provider: Dr. Childs Disposition: ROUTINE DISCHARGE Discharge Condition: GOOD Reason for Admission: Respiratory failure Consultations: Pulmonary-Dr. Yee Procedures: Follow up CXR: FINDINGS: Bilateral lung parenchymal opacification is present not substantially different from the comparison. Progression is not suspected. Lung volumes remain quite low. Trachea is midline. Trachea/defibrillator overlies the left side chest. Heart and vasculature are normal. No measurable pleural effusion and no pneumothorax. No acute bony abnormality seen. No acute aortic findings suspected. IMPRESSION: Stable appearance of the chest since May 05. CT scan: FINDINGS: No evidence of pulmonary thromboembolism. No acute aortic finding demonstrated. Ground-glass opacities in the periphery of both lungs in both lung bases has mildly improved since comparative CT. No significant pericardial or pleural fluid. No concerning bony finding. IMPRESSION: No evidence of pulmonary thromboembolism. Mild improvement in bilateral ground-glass opacities since 04/25/2020 study. 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 Patient presented to the emergency room with increasing shortness of breath. Patient reports that she was diagnosis with COVID about 1 week ago at an urgent care center. Patient had been given medication for infection by her PCP. This included oral steroid, Xarelto, and supplementation. Her condition did not improve. also tested positive recently and is currently hospitalized. Continued to have increasing shortness of breath. She denied any fever. In the ER patient with tachypnea. Room-air saturations around 92%. Patient with increase shortness of breath with exertion. CT scan showed COVID pneumonia. White count 16.3. Platelet count 256, white count 13.4. Creatinine 0.9. Sodium 131, potassium 4.7. Glucose 136. Ferritin 747. CRP 40. Patient admitted for further evaluation and observation. When I saw the patient ER, patient appeared tachypneic but stable. Hospital Course: Patient presented with dyspnea secondary to acute respiratory failure related to bilateral COVID 19 pneumonia. Patient required hospitalization. Her course of stay was prolonged. Patient received IV steroids, Remdesivir. Medications were adjusted during her stay. Some of her home medication had to be discontinued due to dehydration. Patient was seen in coordination with pulmonology. At discharge patient has done well. Patient able to move appropriately without significant desaturation or distress. Patient still requires oxygen at discharge. At discharge patient will continue with home oxygen at 4 lit ers/minute. Patient to monitor her oxygen saturations closely. Maintain oxygen above 93%. At discharge patient will continue with prednisone 20 mg 1 pill twice daily for 7 days then 1 pill daily for 7 days. After completion of her prednisone patient may return back to her normal prednisone dose of 2.5 mg daily. Patient with history of chronic steroid use. The patient will also continue with supplementation including vitamin-C 500 mg 1 pill 3 times a day, vitamin-D 2000 units daily, zinc 220 mg daily, thiamine 100 mg daily, and melatonin 5 mg at night. Recommend follow up with pulmonology in 1 week to follow up her care. Patient will continue with [place] [id number] isolation guidelines and recommendation. Pulmonology to further monitor and wean off oxygen. Patient with hypertension. Medications had to be adjusted during the course of her stay. Due to dehydration and low blood pressure, lisinopril, Aldactone and hydrochlorothiazide were discontinued. Patient remained on carvedilol but at a lower dose. Patient previously on lisinopril 5 mg daily, Aldactone 25 mg daily, carvedilol 25 mg 1 pill twice daily, and hydrochlorothiazide 12.5 mg daily. At discharge blood pressure remained stable only on carvedilol. At discharge she will continue with carvedilol 12.5 mg 1 pill twice daily. Recommend to monitor her blood pressures daily. Recommend to maintain blood pressure less than 130/80. Further adjustment in medication may be required. This can be done with the help of her early childhood aide classroom or PCP. Carvedilol may need to be increased at her normal dose if blood pressure elevated. Patient may return back to her normal medication if blood pressure remains elevated as well. Patient with history of cardiac toxicity related to chemotherapy now with defibrillator pacemaker. She is on chronic steroids. This appears stable at this time. Patient will continue with digoxin 125 mcg daily and Xarelto 10 mg daily. Patient with chronic systolic CHF. Patient continue with her medication of Aldactone. This had to be held due to dehydration. At discharge, Aldactone continues to be held. Recommend to continue 1500 cc per day fluid restriction and low-salt diet. Recommend to monitor her weight daily. If her weight increases by more than 5 lb then Aldactone may need to be restarted. This can be done with the help of her PCP or cardiology. Patient had hyperglycemia. Patient on chronic steroids. Patient on prednisone 2.5 mg daily. Patient was evaluated for diabetes. Hemoglobin A1c 6.7. Patient with evidence of diabetes mellitus type 2. At discharge patient has been started on glimepiride 1 mg 1 pill daily. Recommend to monitor her blood sugars at least twice daily. Recommend to maintain blood sugars less 140 fasting and less than 200 after meals. Further adjustment in her medication can be done by her PCP. Patient with GERD. At discharge she will continue with Pepcid 20 mg daily. Vital Signs/Physical Exam: Temp Pulse Resp BP Pulse Ox 97.2 F 92 H 18 113/59 L 91 05/08/20 08:00 05/08/20 08:00 05/08/20 08:00 05/08/20 08:00 05/08/20 08:00 General: Alert, In no apparent distress, Oriented x3, Cooperative HEENT: Atraumatic Neck: Supple Respiratory: Clear to auscultation bilaterally, Normal air movement Cardiovascular: Normal pulses Neurological: Normal speech, Normal strength at 5/5 x4 extr, Normal tone, Normal affect Laboratory Data at Discharge: WBC 17.3 K/uL (4.3-10.9) H D 05/07/20 03:51 Hgb 13.4 g/dL (12.0-15.0) 05/07/20 03:51 Hct 40.1 % (36.0-45.0) 05/07/20 03:51 Plt Count 172 K/uL (152-406) 05/07/20 03:51 Sodium 129 mmol/L (136-145) L 05/07/20 03:51 Potassium 4.3 mmol/L (3.5-5.1) 05/07/20 03:51 BUN 28 mg/dL (7-18) H 05/07/20 03:51 Creatinine 0.77 mg/dL (0.55-1.3) 05/07/20 03:51 Glucose 244 mg/dL (74-106) H 05/07/20 03:51 Phosphorus 3.8 mg/dL (2.5-4.9) 05/06/20 15:28 Magnesium 2.3 mg/dL (1.8-2.4) 05/07/20 03:51 Total Bilirubin 0.9 mg/dL (0.2-1.0) 05/05/20 06:55 AST 15 U/L (15-37) 05/05/20 06:55 ALT 32 U/L (12-78) 05/05/20 06:55 Alkaline Phosphatase 63 U/L (45-117) 05/05/20 06:55 Home Medications: Cyanocobalamin (Vitamin B-12) [Vitamin B-12] 1,000 mcg PO DAILY 04/27/20 Digoxin 125 mcg PO DAILY 04/27/20 Famotidine [Pepcid] 20 mg PO DAILY 04/27/20 Rivaroxaban [Xarelto*] 10 mg PO DAILY 04/27/20 predniSONE [Prednisone] 0 mg PO DAILY 04/27/20 Ascorbic Acid [Vitamin C*] 500 mg PO TID #90 tablet 05/08/20 Benzonatate [Tessalon Perle*] 100 mg PO TID PRN #10 cap 05/08/20 Cholecalciferol (Vitamin D3) [Vitamin D 1000 Iu Tab*] 2,000 unit PO DAILY #60 tab 05/08/20 Glimepiride 1 mg PO DAILY #30 tablet 05/08/20 Melatonin 5 mg PO BEDTIME #30 tablet 05/08/20 Thiamine HCl 100 mg PO DAILY #30 tablet 05/08/20 Zinc Sulfate [Zinc Sulfate*] 220 mg PO DAILY #30 cap 05/08/20 carvediloL [Coreg*] 12.5 mg PO BID 6AM 6PM #60 tab 05/08/20 predniSONE [Prednisone*] 20 mg PO SEECOM #21 tab 05/08/20 New Medications: carvediloL [Coreg*] 12.5 mg PO BID 6AM 6PM #60 tab Glimepiride 1 mg PO DAILY #30 tablet Melatonin 5 mg PO BEDTIME #30 tablet predniSONE [Prednisone*] 20 mg PO SEECOM #21 tab Benzonatate [Tessalon Perle*] 100 mg PO TID PRN #10 cap PRN Reason: Cough Thiamine HCl 100 mg PO DAILY #30 tablet Ascorbic Acid [Vitamin C*] 500 mg PO TID #90 tablet Cholecalciferol (Vitamin D3) [Vitamin D 1000 Iu Tab*] 2,000 unit PO DAILY #60 tab Zinc Sulfate [Zinc Sulfate*] 220 mg PO DAILY #30 cap Patient Discharge Instructions: Recommend follow up with PCP in 1 week to follow up this hospitalization. Patient presented with dyspnea secondary to acute respiratory failure related to bilateral COVID 19 pneumonia. Patient required hospitalization. Her course of stay was prolonged. Patient received IV steroids, Remdesivir. Medications were adjusted during her stay. Some of her home medication had to be discontinued due to dehydration. Patient was seen in coordination with pulmonology. At discharge patient has done well. Patient able to move appropriately without significant desaturation or distress. Patient still requires oxygen at discharge. At discharge patient will continue with home oxygen at 4 liters/minute. Patient to monitor her oxygen saturations closely. Maintain oxygen above 93%. At discharge patient will continue with prednisone 20 mg 1 pill twice daily for 7 days then 1 pill daily for 7 days. After completion of her prednisone patient may return back to her normal prednisone dose of 2.5 mg daily. Patient with history of chronic steroid use. The patient will also continue with supplementation including vitamin-C 500 mg 1 pill 3 times a day, vitamin-D 2000 units daily, zinc 220 mg daily, thiamine 100 mg daily, and melatonin 5 mg at night. Recommend follow up with pulmonology in 1 week to follow up her care. Patient will continue with COVID 19 isolation guidelines and recommendation. Pulmonology to further monitor and wean off oxygen. Patient with hypertension. Medications had to be adjusted during the course of her stay. Due to dehydration and low blood pressure, lisinopril, Aldactone and hydrochlorothiazide were discontinued. Patient remained on carvedilol but at a lower dose. Patient previously on lisinopril 5 mg daily, Aldactone 25 mg daily, carvedilol 25 mg 1 pill twice daily, and hydrochlorothiazide 12.5 mg daily. At discharge blood pressure remained stable only on carvedilol. At discharge she will continue with carvedilol 12.5 mg 1 pill twice daily. Recommend to monitor her blood pressures daily. Recommend to maintain blood pressure less than 130/80. Further adjustment in medication may be required. This can be done with the help of her early childhood aide classroom or PCP. Carvedilol may need to be increased at her normal dose if blood pressure elevated. Patient may return back to her normal medication if blood pressure remains elevated as well. Patient with history of cardiac toxicity related to chemotherapy now with defibrillator pacemaker. She is on chronic steroids. This appears stable at this time. Patient will continue with digoxin 125 mcg daily and Xarelto 10 mg daily. Patient with chronic systolic CHF. Patient continue with her medication of Aldactone. This had to be held due to dehydr ation. At discharge, Aldactone continues to be held. Recommend to continue 1500 cc per day fluid restriction and low-salt diet. Recommend to monitor her weight daily. If her weight increases by more than 5 lb then Aldactone may need to be restarted. This can be done with the help of her PCP or cardiology. Patient had hyperglycemia. Patient on chronic steroids. Patient on prednisone 2.5 mg daily. Patient was evaluated for diabetes. Hemoglobin A1c 6.7. Patient with evidence of diabetes mellitus type 2. At discharge patient has been started on glimepiride 1 mg 1 pill daily. Recommend to monitor her blood sugars at least twice daily. Recommend to maintain blood sugars less 140 fasting and less than 200 after meals. Further adjustment in her medication can be done by her PCP. Patient with GERD. At discharge she will continue with Pepcid 20 mg daily. Diet: ADA Activity: Ad k[place] Followup: Nighat Tobin [Primary Care Provider] - Time spent managing pt's care (in minutes): 55
[2020-05-08 11:23] VITALS: O2SAT 91
[2020-05-08 14:00] VITALS: BP 107/56; TEMP 96.8
[2020-05-08] MEDS ORDERED: D50W 25 GM/50 ML VIAL IV PRN (14:41)
--- NOTE | 2020-05-09 08:35 | ECHO ---
HEIGHT: 5 ft 4 in WEIGHT: 160 lb 0 oz DATE OF STUDY: 05/08/[address]: Francisco J Rebolledo MD 2-DIMENSIONAL: YES M.MODE: YES DOPPLER: YES COLOR FLOW: YES TDS: PORTABLE: DEFINITY: BUBBLE STUDY: DIAGNOSIS: CONGESTIVE HEART FAILURE CARDIAC HISTORY: CATHERIZATION: NO SURGERY: NO PROSTHETIC VALVE: NO PACEMAKER: YES MEASUREMENTS (cm) DIASTOLIC (NORMALS) SYSTOLIC (NORMALS) IVSd 0.9 (0.6-1.2) LA Diam 2.6 (1.9-4.0) LVEF 67% LVIDd 4.0 (3.5-5.7) LVIDs 2.5 (2.0-3.5) %FS 37% LVPWd 1.0 (0.6-1.2) Ao Diam 2.2 (2.0-3.7) 2 DIMENSIONAL ASSESSMENT: RIGHT ATRIUM: NORMAL LEFT ATRIUM: NORMAL RIGHT VENTRICLE: NORMAL LEFT VENTRICLE: NORMAL TRICUSPID VALVE: NORMAL MITRAL VALVE: NORMAL PULMONIC VALVE: NORMAL AORTIC VALVE: NORMAL PERICARDIAL EFFUSION: NONE AORTIC ROOT: NORMAL LEFT VENTRICULAR WALL MOTION: NORMAL DOPPLER/COLOR FLOW: MILD AORTIC AND TRICUSPID REGURGITATION. COMMENTS: MILD AORTIC AND TRICUSPID REGURGITATION. NORMAL LEFT VENTRICULAR SIZE AND FUNCTION. NO WALL MOTION ABNORMALITY. TECHNOLOGIST: AUGUSTA SIMS
== END 2020-05-08 13:20 | disposition home or self-care (01) | DRG 177 ==
LOC: ER 06:34 → ERHOLD 13:15 → 4TH 13:53 → OBSVTOIN 04-28 13:21
PROVIDERS: ADMIT Family Medicine; ATTEND Family Medicine
PROC: XW033E5 Introduction of Remdesivir Anti-infective into Peripheral Vein, Percutaneous Approach, New Technology Group 5 (ICD-10-PCS; principal; 2020-04-29)
DX: U07.1 COVID-19 (principal); J12.82 Pneumonia due to coronavirus disease 2019; J96.00 Acute respiratory failure, unspecified whether with hypoxia or hypercapnia; I50.22 Chronic systolic (congestive) heart failure; E87.1 Hypo-osmolality and hyponatremia; I11.0 Hypertensive heart disease with heart failure; E87.5 Hyperkalemia; E86.0 Dehydration; K21.9 Gastro-esophageal reflux disease without esophagitis; R73.9 Hyperglycemia, unspecified; T38.0X5A Adverse effect of glucocorticoids and synthetic analogues, initial encounter; Z88.1 Allergy status to other antibiotic agents; Z88.0 Allergy status to penicillin; Z95.810 Presence of automatic (implantable) cardiac defibrillator; Z92.21 Personal history of antineoplastic chemotherapy; Z79.52 Long term (current) use of systemic steroids; Z79.899 Other long term (current) drug therapy; Z79.01 Long term (current) use of anticoagulants; Z90.49 Acquired absence of other specified parts of digestive tract
CPT/HCPCS: 36415; 71045; 71275; 80048; 80053; 80076; 80162; 81003; 82728; 82947; 83036; 83605; 83615; 83735; 83880; 84100; 84145; 84484; 85025; 85379; 86140; 87040; 93306; 94010; 94640; 96374; 97161; 99285; J2920; J2930; J3411; J7030; J7050; Q9967; U0003

== ENCOUNTER 2020-11-19 13:15 | Emergency (ER) | payer BC ==
--- OUTSIDE RECORDS SUMMARY | 2020-11-19 13:18 | XMS REPORT | Continuity of Care Document ---
:1960 Author Organization [facility] t Address [address] [place] [address] Care Team Providers Name Role Phone Unavailable Unavailable Unavailable Payers Payer Name Policy Type Policy Number Effective Date Expiration Date S ource Problems This patient has no known problems. Allergies, Adverse Reactions, Alerts Allergy Allergy Status Severity Reaction(s) Onset Inactive Treating Comm ents Source Name Type Date Date Clinician penicill DA Active U 2010-04 [facility] in [facility] 06-08 00:00: [address] Medications This patient has no known [...] code = CA) 9.7 MG/DL 8.4-10.2 N [id number] 10:41:00 Test Item Value Reference Range Interpretation Comments MAGNESIUM (test code = MAG) 1.8 MG/DL 1.6-2.3 N BASIC METABOLIC [id number] 10:40:00 Test Item Value Reference Range Interpretation [...] CALCIUM (test code = MG/DL 8.7-9.7 CA) [id number] 10:40:00 Test Item Value Reference Range Interpretation Comments MAGNESIUM (test code = MAG) MG/DL 1.6-2.3 BASIC METABOLIC [id number] 10:38:00 Test Item Value Reference Range Interpretation [...] CALCIUM (test code = CA) MG/DL 8.7-9.7 [id number] 10:38:00 Test Item Value Reference Range Interpretation Comments MAGNESIUM (test code = MAG) MG/DL 1.6-2.3 PROTHROMBIN [id number] 10:25:00 Test Item Value Reference Range Interpretation [...] syste oseas embolism. 3.0 - 4.5 PTT [id number] 10:25:00 Test Item Value Reference Range Interpretation Comments PTT ACTIVATED (test code = APTT) 30.2 SECONDS 22.0-33.0 N CBC W/AUTO [id number] 10:11:00 Test Item Value Reference Range Interpretation [...]
[2020-11-19 16:01] LABS: Absolute Lymphocytes (CBC) 2.4 K/uL (0.7-4.9); Basophils % 1.4 % (0-1.3); Lymphocytes % 17.4 % (15.3-44.8); MPV 7.7 fL (7.6-11.3); RBC Red Blood Cell Count 4.06 M/uL (3.86-4.86)
[2020-11-19] MEDS ORDERED: ONDANSETRON 4 MG (ODT) TAB ONE (16:01)
[2020-11-19 16:06] LABS: Urine Blood Negative (Negative); Urine Glucose Negative (Negative); Urine Protein 1+ (Negative); Urine Specific Gravity >=1.030 (1.005-1.030)
[2020-11-19 16:22] LABS: Bilirubin Direct 0.3 mg/dL (0-0.2); Potassium 3.8 mmol/L (3.5-5.1); Protein, Total 7.5 g/dL (6.4-8.2)
[2020-11-19 16:45] LABS: Urine Bacteria >50 /HPF (<20); Urine RBC <5 /HPF (NONE SEEN)
--- NOTE | 2020-11-19 16:57 | RAD REPORT ---
EXAM DESCRIPTION: CTAbdomen Pelvis W Contrast - 11/19/2020 4:45 pm CLINICAL HISTORY: Abdominal pain. LLQ abdomen pain COMPARISON: No comparisons TECHNIQUE: Biphasic CT imaging of the abdomen and pelvis was performed with 100 ml non-ionic IV cont rast. All CT scans are performed using dose optimization technique as appropriate and may include automated exposure control or mA/KV adjustment according to patient size. FINDINGS: Fibrotic changes are present in both lung bases with bronchiectasis.Small hiatal hernia. Prominent diffuse fatty liver is present. Cholecystectomy clips. The spleen, pancreas, adrenal glands and kidneys are within normal limits. Small benign cyst posterosuperior left kidney cortex. No bowel obstruction, free air, free fluid or abscess. Moderate inflammation is seen surrounding the left lower quadrant sigmoid colon involving a 7-8 cm length segment. This is most compatible with acu te diverticulitis. The appendix is normal. No evidence of significant lymphadenopathy. Moderate lumbosacral degenerative changes. IMPRESSION: Moderate inflammation is seen surrounding a 7-8 cm length of the sigmoid colon in the le ft lower quadrant, compatible with acute diverticulitis. No abscess is visible. Prominent diffuse fatty liver.
[2020-11-19] MEDS ORDERED: NA CHLORIDE 0.9% 1,000 ML ONE (17:59)
[2020-11-19] MEDS ORDERED: MORPHINE 4 MG/ML SYR ONE (17:59)
[2020-11-19] MEDS ORDERED: METRONIDAZOLE 500mg IVPB 500 MG/100 ML BAG IV ONE (18:00)
[2020-11-19] MEDS ORDERED: CEFTRIAXONE/SWI 1gm 1 GM/10 ML SYR ONE (18:23)
--- NOTE | 2020-11-19 18:56 | EDPHYS ---
Physician Documentation [facility] Name: Flakita Stevenson Age: 60 yrs Sex: Female : 1960 Arrival Date: 11/19/2020 Time: 13:24 Bed 28 Private MD: Breann Tobin K ED Physician Rachid Silva HPI: 11/19 15:35 This 60 yrs old Female presents to ER via Unassigned with complaints of cp Abdominal Pain - LLQ, Nausea, Diarrhea. 15:35 The patient presents with abdominal pain in the left lower quadrant. Onset: The cp symptoms/episode began/occurred 2 day(s) ago. The symptoms radiate to left back. Associated signs and symptoms: Pertinent positives: diarrhea, nausea, Pertinent negatives: constipation, vomiting. The symptoms are described as steady. Modifying factors: the symptoms are aggravated by pressure. Severity of pain: in the emergency department the pain is a 8 / 10. Historical: - Allergies: 15:57 Cipro; iw 15:57 PENICILLINS; iw - Immunization history:: Adult Immunizations up to date. - Social history:: Smoking status: Patient denies any tobacco usage or history of. ROS: 15:37 Eyes: Negative for injury, pain, redness, and discharge. cp 15:37 Constitutional: Negative for body aches, chills, fever, poor PO intake. 15:37 ENT: Negative for ear pain, sore throat, difficulty swallowing, difficulty handling secretions. 15:37 Cardiovascular: Negative for chest pain, edema, palpitations. 15:37 Respiratory: Negative for cough, shortness of breath, wheezing. 15:37 Abdomen/GI: Positive for abdominal pain, nausea, diarrhea, Negative for vomiting, constipation, black/tarry stool, rectal bleeding. 15:37 Back: Positive for radiated pain, of the left low back. 15:37 : Positive for urinary frequency, Negative for hematuria, burning with urination. 15:37 Neuro: Negative for altered mental status, headache, weakness. 15:37 All other systems are negative. Exam: 15:37 Head/Face: Normocephalic, atraumatic. cp 15:37 Constitutional: The patient appears in no acute distress, alert, awake, non-toxic, well developed, well nourished. 15:37 Eyes: Periorbital structures: appear normal, Conjunctiva: normal, no exudate, no injection, Sclera: no appreciated abnormality, Lids and lashes: appear normal, bilaterally. 15:37 ENT: External ear(s): are unremarkable, Nose: is normal, Mouth: Lips: moist, Posterior pharynx: Airway: no evidence of obstruction, patent. 15:37 Chest/axilla: Inspection: normal, Palpation: is normal, no crepitus, no tenderness. 15:37 Respiratory: the patient does not display signs of respiratory distress, Respirations: normal, no use of accessory muscles, no retractions, labored breathing, is not present, Breath sounds: are clear throughout, no decreased breath sounds, no stridor, no wheezing. 15:37 Abdomen/GI: Inspection: abdomen appears normal, Palpation: soft, in all quadrants, moderate abdominal tenderness, in the left lower quadrant, rebound tenderness, is not appreciated, voluntary guarding, is elicited in the left lower quadrant. 15:37 Back: pain, that is mild, of the left low back, ROM is normal. 15:37 Neuro: Orientation: to person, place \T\ time. Mentation: is normal. Vital Signs: 15:56 BP 107 / 92; Pulse 89; Resp 16; Temp 98.7; Pulse Ox 100% on R/A; iw 17:16 BP 118 / 86; Pulse 85; Resp 18; Pulse Ox 100% on R/A; ld1 18:23 BP 126 / 88; Pulse 82; Resp 18; Pulse Ox 100% on R/A; ld1 19:11 BP 122 / 85; Pulse 80; Resp 18; Pulse Ox 100% ; ld1 MDM: 17:21 Patient medically screened. pm1 17:48 Data reviewed: I have discussed the patient's presentation/case with the attending pm1 Emergency Department Physician; and as a result, I will discharge patient, Patient can be discharge home to trial with outpatient antibiotics and if no improvement or worsening patient educated on return precautions. 18:53 Data interpreted: Pulse oximetry: on room air is 100 %. Interpretation: normal. pm1 18:53 Counseling: I had a detailed discussion with the patient and/or guardian regarding: the pm1 historical points, exam findings, and any diagnostic results supporting the discharge/admit diagnosis, lab results, radiology results, the need for outpatient follow up, a poiser balance, to return to the emergency department if symptoms worsen or persist or if there are any questions or concerns that arise at home. 19:01 ED course: [place] reviewed. pm1 11/19 15:35 Order name: Basic Metabolic Panel; Complete Time: 17:10 cp 11/19 15:35 Order name: CBC with Diff; Complete Time: 17:10 cp 11/19 15:35 Order name: Hepatic Function; Complete Time: 17:10 cp 11/19 15:35 Order name: Lipase; Complete Time: 17:10 cp 11/19 15:35 Order name: Urine Microscopic Only; Complete Time: 17:10 cp 11/19 16:06 Order name: Urine Dipstick-Ancillary; Complete Time: 17:10 EDMS 11/19 15:35 Order name: CT Abd/Pelvis - IV Contrast Only; Complete Time: 17:10 cp 11/19 16:46 Order name: Urine Culture EDMS 11/19 15:35 Order name: IV Saline Lock; Complete Time: 17:03 cp 11/19 15:35 Order name: Labs collected and sent; Complete Time: 17:03 cp 11/19 15:35 Order name: Urine Dipstick-Ancillary (obtain specimen); Complete Time: 17:16 cp Administered Medications: 16:00 Drug: Ondansetron 4 mg Route: PO; iw 16:30 Follow up: Response: No adverse reaction iw 17:43 Drug: NS 0.9% 1000 ml Route: IV; Rate: 1000 ml; Site: left antecubital; ld1 18:17 Follow up: Response: No adverse reaction; IV Status: Completed infusion; IV Intake: ld1 1000ml 17:44 Drug: morphine 4 mg Route: IVP; Site: left antecubital; ld1 18:18 Follow up: Response: No adverse reaction ld1 17:44 Drug: Flagyl (metroNIDAZOLE) 500 mg Volume: 100 ml; Route: IVPB; Rate: 200 ml/hr; ld1 Infused Over: 30 mins; Site: left antecubital; 18:18 Follow up: Response: No adverse reaction; IV Status: Completed infusion; IV Intake: ld1 100ml 18:17 Drug: Rocephin (cefTRIAXone) 1 grams Route: IV; Rate: calculated rate; Site: left ld1 antecubital; 18:17 Follow up: Response: No adverse reaction ld1 18:25 Follow up: IV Status: Completed infusion iw 18:42 CANCELLED (Physician Discretion): SOLU-Medrol (methylPrednisoLONE) 125 mg IVP once pm1 Disposition: 11/20 07:44 Co-signature as Attending Physician, Rachid Silva MD I agree with the assessment and kdr plan of care. Disposition Summary: 11/19/20 18:55 Discharge Ordered Location: Home pm1 Problem: new pm1 Symptoms: have improved pm1 Condition: Stable pm1 Diagnosis - Diverticulitis of large intestine without perforation or abscess without bleeding pm1 - UTI/ Urinary tract infection, site not specified pm1 Followup: pm1 - With: Emergency Department - When: As needed - Reason: Worsening of condition Followup: pm1 - With: Private Physician - When: 2 - 3 days - Reason: Recheck today's complaints, Continuance of care, Re-evaluation by your physician Discharge Instructions: - Discharge Summary Sheet pm1 - Diverticulitis pm1 - Urinary Tract Infection, Adult pm1 Forms: - Medication Reconciliation Form pm1 - Thank You Letter pm1 - Antibiotic Education pm1 - Prescription Opioid Use pm1 Prescriptions: - Flagyl 500 mg Oral Tablet - take 1 tablet by ORAL route every 6 hours for 10 days; 40 tablet; Refills: 0, pm1 Product Selection Permitted - ondansetron 4 mg Oral tablet,disintegrating - place 1 tablet by TRANSLINGUAL route every 8 hours As needed; 15 tablet; pm1 Refills: 0, Product Selection Permitted - acetaminophen-codeine 300-15 mg Oral tablet - take 2 tablet by ORAL route every 6 hours As needed as needed; 20 tablet; pm1 Refills: 0, Product Selection Permitted - Bactrim DS 800-160 mg Oral Tablet - take 1 tablet by ORAL route every 12 hours for 10 days; 20 tablet; Refills: 0, pm1 Product Selection Permitted Signatures: Dispatcher [employer] EDMS Rachid Silva MD MD kdr Williams, Irene, RN RN iw Meet Caceres PA PA cp Marinas, Patrick, SINDY ASSISTANT STORE MANAGER OPERATIONS pm1 Mary Madrid RN RN ld1 Corrections: (The following items were deleted from the chart) 11/19 18:42 18:42 SOLU-Medrol (methylPrednisoLONE) 125 mg IVP once ordered. pm1 pm1
--- NOTE | 2020-11-19 18:56 | ER ---
Nurse's Notes [facility] Name: Flakita Stevenson Age: 60 yrs Sex: Female : 1960 Arrival Date: 11/19/2020 Time: 13:24 Bed 28 Private MD: Breann Tobin K Diagnosis: Diverticulitis of large intestine without perforation or abscess without bleeding;UTI/ Urinary tract infection, site not specified Presentation: 11/19 15:49 Chief complaint: Patient states: lower abd pain since yesterday. iw 15:49 Acuity: FRANSICO 3 iw 15:56 Coronavirus screen: At this time, the client does not indicate any symptoms associated iw with coronavirus-19. Ebola Screen: Patient negative for fever greater than or equal to 101.5 degrees Fahrenheit, and additional compatible Ebola Virus Disease symptoms Patient denies exposure to infectious person. Patient denies travel to an Ebola-affected area in the 21 days before illness onset. No symptoms or risks identified at this time. Initial Sepsis Screen: Does the patient meet any 2 criteria? No. Patient's initial sepsis screen is negative. Does the patient have a suspected source of infection? No. Patient's initial sepsis screen is negative. Risk Assessment: Do you want to hurt yourself or someone else? Patient reports no desire to harm self or others. 15:56 Method Of Arrival: Ambulatory iw 19:12 Onset of symptoms was November 19, 2020. ld1 Historical: - Allergies: 15:57 Cipro; iw 15:57 PENICILLINS; iw - Immunization history:: Adult Immunizations up to date. - Social history:: Smoking status: Patient denies any tobacco usage or history of. Screenin:16 Abuse screen: Denies threats or abuse. Denies injuries from another. Nutritional ld1 screening: No deficits noted. Tuberculosis screening: No symptoms or risk factors identified. Fall Risk None identified. Assessment: 17:16 General: Appears in no apparent distress. comfortable, Behavior is calm, cooperative, ld1 appropriate for age. Pain: Complains of pain in left lower quadrant Pain does not radiate. Pain currently is 8 out of 10 on a pain scale. Quality of pain is described as throbbing, Pain began suddenly, Is continuous. Neuro: Level of Consciousness is awake, alert, obeys commands, Oriented to person, place, time, situation. Cardiovascular: Capillary refill < 3 seconds Patient's skin is warm and dry. Respiratory: Airway is patent Respiratory effort is even, unlabored, Respiratory pattern is regular, symmetrical. GI: Abdomen is flat, non-distended, Bowel sounds present X 4 quads. Abd is soft Abdomen is tender to palpation X 4 quads. : No signs and/or symptoms were reported regarding the genitourinary system. EENT: No signs and/or symptoms were reported regarding the EENT system. Derm: No signs and/or symptoms reported regarding the dermatologic system. Musculoskeletal: No signs and/or symptoms reported regarding the musculoskeletal system. 18:23 Reassessment: Patient appears in no apparent distress at this time. No changes from ld1 previously documented assessment. Patient and/or family updated on plan of care and expected duration. Pain level reassessed. 19:11 Reassessment: Patient appears in no apparent distress at this time. No changes from ld1 previously documented assessment. Patient and/or family updated on plan of care and expected duration. Pain level reassessed. Vital Signs: 15:56 BP 107 / 92; Pulse 89; Resp 16; Temp 98.7; Pulse Ox 100% on R/A; iw 17:16 BP 118 / 86; Pulse 85; Resp 18; Pulse Ox 100% on R/A; ld1 18:23 BP 126 / 88; Pulse 82; Resp 18; Pulse Ox 100% on R/A; ld1 19:11 BP 122 / 85; Pulse 80; Resp 18; Pulse Ox 100% ; ld1 ED Course: 13:24 Patient arrived in ED. am2 13:25 Breann Tobin MD is Private Physician. am2 15:49 Cherise Stanford, RN is Primary Nurse. iw 15:50 Triage completed. iw 15:50 Inserted saline lock: 22 gauge in left antecubital area, using aseptic technique. iw 16:45 CT Abd/Pelvis - IV Contrast Only In Process Unspecified. EDMS 17:03 Arm band placed on. iw 17:10 Goyo Shultz NP is PHCP. pm1 17:10 Rachid Silva MD is Attending Physician. pm1 17:16 No provider procedures requiring assistance completed. ld1 17:16 Patient has correct armband on for positive identification. Placed in gown. Bed in low ld1 position. Call light in reach. Side rails up X2. vehicle monitor technician on. Pulse ox on. NIBP on. 19:12 IV discontinued, intact, bleeding controlled, No redness/swelling at site. ld1 Administered Medications: 16:00 Drug: Ondansetron 4 mg Route: PO; iw 16:30 Follow up: Response: No adverse reaction iw 17:43 Drug: NS 0.9% 1000 ml Route: IV; Rate: 1000 ml; Site: left antecubital; ld1 18:17 Follow up: Response: No adverse reaction; IV Status: Completed infusion; IV Intake: ld1 1000ml 17:44 Drug: morphine 4 mg Route: IVP; Site: left antecubital; ld1 18:18 Follow up: Response: No adverse reaction ld1 17:44 Drug: Flagyl (metroNIDAZOLE) 500 mg Volume: 100 ml; Route: IVPB; Rate: 200 ml/hr; ld1 Infused Over: 30 mins; Site: left antecubital; 18:18 Follow up: Response: No adverse reaction; IV Status: Completed infusion; IV Intake: ld1 100ml 18:17 Drug: Rocephin (cefTRIAXone) 1 grams Route: IV; Rate: calculated rate; Site: left ld1 antecubital; 18:17 Follow up: Response: No adverse reaction ld1 18:25 Follow up: IV Status: Completed infusion iw 18:42 CANCELLED (Physician Discretion): SOLU-Medrol (methylPrednisoLONE) 125 mg IVP once pm1 Intake: 18:17 IV: 1000ml; Total: 1000ml. ld1 18:18 IV: 100ml; Total: 1100ml. ld1 Outcome: 18:55 Discharge ordered by . pm1 19:11 Discharged to home ambulatory. ld1 19:11 Condition: stable 19:11 Discharge instructions given to patient, Instructed on discharge instructions, follow up and referral plans. medication usage, Demonstrated understanding of instructions, follow-up care, medications, Prescriptions given X 4. 19:12 Patient left the ED. ld1 Signatures: Dispatcher [employer] EDCherise Giron RN RN iw Goyo Shultz NP WORKFLOW DEVELOPER pm1 Elisabet López am2 Mary Madrid RN RN ld1
[2020-11-19 19:21] VITALS: TEMP 98.7; O2SAT 100
[2020-11-19 19:26] VITALS: BP 122/85
== END 2020-11-19 19:12 | disposition home or self-care (01) ==
LOC: ER 13:15
DX: K57.32 Diverticulitis of large intestine without perforation or abscess without bleeding (principal); N39.0 Urinary tract infection, site not specified; Z88.0 Allergy status to penicillin; Z88.1 Allergy status to other antibiotic agents
CPT/HCPCS: 87088; 85025; 87086; 80048; 36415; 80076; 83690; 74177; Q9967; J0696; J7030; 81003; 81015; 87077; 87186

== ENCOUNTER 2020-11-22 12:29 | Emergency (ER) | payer BC ==
--- OUTSIDE RECORDS SUMMARY | 2020-11-22 12:31 | XMS REPORT | Continuity of Care Document ---
:1960 Author Organization [facility] t Address [address] [place] [address] Care Team Providers Name Role Phone Unavailable Unavailable Unavailable Payers Payer Name Policy Type Policy Number Effective Date Expiration Date S ource Problems This patient has no known problems. Allergies, Adverse Reactions, Alerts Allergy Allergy Status Severity Reaction(s) Onset Inactive Treating Comm ents Source Name Type Date Date Clinician penicill DA Active U 2010-04 [facility] in [facility] 06-08 00:00: [address] Medications This patient has no known [...] code = CA) 9.7 MG/DL 8.4-10.2 N [id number] 10:41:00 Test Item Value Reference Range Interpretation Comments MAGNESIUM (test code = MAG) 1.8 MG/DL 1.6-2.3 N BASIC METABOLIC [id number] 10:40:00 Test Item Value Reference Range Interpretation [...] CALCIUM (test code = MG/DL 8.7-9.7 CA) [id number] 10:40:00 Test Item Value Reference Range Interpretation Comments MAGNESIUM (test code = MAG) MG/DL 1.6-2.3 BASIC METABOLIC [id number] 10:38:00 Test Item Value Reference Range Interpretation [...] CALCIUM (test code = CA) MG/DL 8.7-9.7 [id number] 10:38:00 Test Item Value Reference Range Interpretation Comments MAGNESIUM (test code = MAG) MG/DL 1.6-2.3 PROTHROMBIN [id number] 10:25:00 Test Item Value Reference Range Interpretation [...] syste oseas embolism. 3.0 - 4.5 PTT [id number] 10:25:00 Test Item Value Reference Range Interpretation Comments PTT ACTIVATED (test code = APTT) 30.2 SECONDS 22.0-33.0 N CBC W/AUTO [id number] 10:11:00 Test Item Value Reference Range Interpretation [...]
[2020-11-22] MEDS ORDERED: METHYLPREDNISOLONE 125 MG INJ ONE (19:01)
[2020-11-22] MEDS ORDERED: DIPHENHYDRAMINE 50 MG/ML VIAL ONE (19:01)
[2020-11-22] MEDS ORDERED: FAMOTIDINE 20 MG/2 ML VIAL IV ONE (19:02)
[2020-11-22] MEDS ORDERED: NA CHLORIDE 0.9% 1,000 ML ONE (19:02)
[2020-11-22] MEDS ORDERED: HYDROCORTISONE SUC 100 MG INJ ONE (19:04)
[2020-11-22] MEDS ORDERED: ONDANSETRON 4 MG/2 ML VIAL ONE (19:23)
[2020-11-22 19:32] LABS: Albumin 3.1 g/dL (3.4-5.0); Bilirubin Direct 0.2 mg/dL (0-0.2); Bilirubin Total 0.5 mg/dL (0.2-1.0); Potassium 3.5 mmol/L (3.5-5.1); Protein, Total 8.1 g/dL (6.4-8.2)
[2020-11-22 19:33] LABS: Basophils % 0.6 % (0-1.3); Hematocrit 39.1 % (36.0-45.0); Lymphocytes % 19.6 % (15.3-44.8); MPV 7.9 fL (7.6-11.3); RBC Red Blood Cell Count 4.29 M/uL (3.86-4.86)
[2020-11-22 20:04] LABS: Blood Morphology Comment NOT SEEN (NOT SEEN); Platelet Estimate ADEQ; White Blood Cell Scan OK (OK)
[2020-11-22] MEDS ORDERED: CEPHALEXIN 250 MG CAP ONE (21:45)
--- NOTE | 2020-11-22 22:14 | ER ---
Nurse's Notes [facility] Name: Flakita Stevenson Age: 60 yrs Sex: Female : 1960 Arrival Date: 11/22/2020 Time: 12:31 Bed 30 Private MD: Breann Tobin K Diagnosis: Allergic urticaria;Allergic Reaction, Medication Presentation: 11/22 13:19 Chief complaint: Patient states: Was here Thursday and was diagnosed with Diverticulitis ca1 and was prescribed antibiotics. I called my PCP today cause I was having allergic reactions to the abx, I am having severe diarrhea and itching. So my PCP sent me here for IV abx. Coronavirus screen: Client denies travel out of the [place] in the last 14 days. vomiting. Client presents with at least one sign or symptom that may indicate coronavirus-19. Standard/surgical mask placed on the client. Provider contacted for isolation considerations. Ebola Screen: Patient negative for fever greater than or equal to 101.5 degrees Fahrenheit, and additional compatible Ebola Virus Disease symptoms Patient denies exposure to infectious person. Patient denies travel to an Ebola-affected area in the 21 days before illness onset. No symptoms or risks identified at this time. Initial Sepsis Screen: Does the patient meet any 2 criteria? No. Patient's initial sepsis screen is negative. Does the patient have a suspected source of infection? No. Patient's initial sepsis screen is negative. Risk Assessment: Do you want to hurt yourself or someone else? Patient reports no desire to harm self or others. Onset of symptoms was November 22, 2020. 13:19 Method Of Arrival: Ambulatory ca1 13:19 Acuity: FRANSICO 2 ca1 Historical: - Allergies: 13:23 Cipro; ca1 13:23 PENICILLINS; ca1 13:23 Bactrim; ca1 - Immunization history:: Client reports having NOT received the Covid vaccine. - Social history:: Smoking status: Patient denies any tobacco usage or history of. Screenin:07 Abuse screen: Denies threats or abuse. Denies injuries from another. Nutritional tr6 screening: No deficits noted. Tuberculosis screening: No symptoms or risk factors identified. Fall Risk None identified. Assessment: 19:03 General: Appears uncomfortable, Behavior is calm, cooperative, appropriate for age. tr6 Pain: Denies pain. Neuro: Level of Consciousness is awake, alert, obeys commands, Oriented to person, place, time, situation, Appropriate for age. Cardiovascular: No deficits noted. Respiratory: Airway is patent Trachea midline Respiratory effort is labored, Respiratory pattern is regular. GI: No deficits noted. : No deficits noted. EENT: No deficits noted. EENT: Eyes swelling around b/l eyes due to allergic reaction. Derm: Skin is intact, Skin is red, Skin temperature is warm. Musculoskeletal: No deficits noted. 22:26 Reassessment: Patient and/or family updated on plan of care and expected duration. Pain ea level reassessed. Patient is alert, oriented x 3, equal unlabored respirations, skin warm/dry/pink. Discharge instruction given to patient verbalized the understanding of instruction. Pt left ED ambulatory accompanied by family pt tolerating well. Vital Signs: 13:19 BP 91 / 52; Pulse 95; Resp 20 S; Temp 97.6(TE); Pulse Ox 94% on R/A; Weight 71.67 kg ca1 (R); Height 5 ft. 4 in. (162.56 cm) (R); 19:40 BP 103 / 69; Pulse 96; Resp 20; Pulse Ox 96% ; bs2 13:19 Body Mass Index 27.12 (71.67 kg, 162.56 cm) ca1 ED Course: 12:31 Patient arrived in ED. mr 12:31 Breann Tobin MD is Private Physician. mr 13:23 Triage completed. ca1 13:23 Arm band placed on right wrist. ca1 17:37 Rachid Silva MD is Attending Physician. kdr 19:07 Patient has correct armband on for positive identification. Bed in low position. Call tr6 light in reach. Side rails up X 1. Pulse ox on. NIBP on. 19:09 No provider procedures requiring assistance completed. Inserted saline lock: 18 gauge tr6 in left antecubital area, using aseptic technique. Blood collected. 19:22 Attending Physician role handed off by Rachid Silva MD [facility] 19:22 Can Contreras MD is Attending Physician. 7 19:35 Gladis Beltran, CELESTE is Primary Nurse. bs2 22:13 Camilo Kelley MD is Referral Physician. 7 22:13 Mc Crandall MD is Referral Physician. [facility] 22:27 IV discontinued, intact, bleeding controlled, No redness/swelling at site. Pressure ea dressing applied. Administered Medications: 19:02 Drug: SOLU-Medrol (methylPrednisoLONE) 60 mg Route: IVP; Site: left antecubital; tr6 22:05 Follow up: Response: No adverse reaction ea 19:02 Drug: NS 0.9% 1000 ml Route: IV; Rate: 1 bolus; Site: left antecubital; tr6 22:00 Follow up: Response: No adverse reaction; IV Status: Completed infusion; IV Intake: ea 1000ml 19:03 Drug: Pepcid (famotidine) 20 mg Route: IVP; Site: left antecubital; tr6 19:03 Drug: Benadryl (diphenhydrAMINE) 25 mg Route: IVP; Site: left antecubital; tr6 19:03 Drug: Zofran (Ondansetron) 4 mg Route: IVP; Site: left antecubital; tr6 22:05 Follow up: Response: No adverse reaction ea 21:24 Drug: KeFLEX (cephalexin) 500 mg Route: PO; ea 22:28 Follow up: Response: No adverse reaction ea Intake: 22:00 IV: 1000ml; Total: 1000ml. ea Outcome: 22:14 Discharge ordered by . [facility] 22:27 Discharged to home ambulatory, with family. ea 22:27 Condition: stable 22:27 Discharge instructions given to patient, Instructed on discharge instructions, follow up and referral plans. Demonstrated understanding of instructions, follow-up care, medications, Prescriptions given X 1. 22:27 Patient left the ED. ea Signatures: Rachid Silva MD MD [facility] Marielena Maria Elena, RN RN ea Acob, Cheryl, RN RN ca1 Can Contreras MD MD [facility] Ariane Guerrero RN RN tr6 Gladis Beltran RN RN bs2
--- NOTE | 2020-11-22 22:14 | EDPHYS ---
Physician Documentation [facility] Name: Flakita Stevenson Age: 60 yrs Sex: Female : 1960 Arrival Date: 11/22/2020 Time: 12:31 Bed 30 Private MD: Breann Tobin K ED Physician Can Contreras HPI: 11/22 18:40 This 60 yrs old Female presents to ER via Ambulatory with complaints of kdr Allergic Reaction to Meds. 18:40 The patient presents with diffuse swelling, itching. Onset: The symptoms/episode kdr began/occurred gradually, yesterday. Associated signs and symptoms: The patient has no apparent associated signs or symptoms. Pertinent positives: shortness of breath. Possible causes: antibiotics, Bactrim. At home the patient or guardian has treated the symptoms with Benadryl. Severity of symptoms: At their worst the symptoms were mild in the emergency department the symptoms are unchanged. The patient has not experienced similar symptoms in the past. The patient has been recently seen by a physician: The patient has been recently seen at the [facility] Emergency Department, Patient was seen here on Thursday of this week. Her diagnosis was diverticulitis. She was sent home on antibiotics which included Bactrim and Flagyl. Since yesterday she started to have itching and swelling all over. She denies any threat to her airway. Historical: - Allergies: 13:23 Cipro; ca1 13:23 PENICILLINS; ca1 13:23 Bactrim; ca1 - Immunization history:: Client reports having NOT received the Covid vaccine. - Social history:: Smoking status: Patient denies any tobacco usage or history of. ROS: 18:40 Constitutional: Negative for fever, chills, and weight loss, Neck: Negative for injury, kdr pain, and swelling, Cardiovascular: Negative for chest pain, palpitations, and edema, Back: Negative for injury and pain, : Negative for injury, bleeding, discharge, and swelling, MS/Extremity: Negative for injury and deformity, Neuro: Negative for headache, weakness, numbness, tingling, and seizure activity. Psych: Negative for depression, anxiety, suicide ideation, homicidal ideation, and hallucinations, Endocrine: Negative for neck swelling, polydipsia, polyuria, polyphagia, and marked weight changes, Hematologic/Lymphatic: Negative for swollen nodes, abnormal bleeding, and unusual bruising. 18:40 Eyes: Positive for itching, swelling, Patient has diffuse facial swelling including her eyes. 18:40 Respiratory: Positive for Patient has chronic shortness of breath due to her prior lung condition. 18:40 Abdomen/GI: Positive for abdominal pain, Patient has had left lower quadrant pain earlier in the week which is improved but still present to a mild degree. 18:40 Allergy/Immunology: Positive for allergies, Patient is appears to be allergic to Bactrim. Exam: 18:40 Constitutional: This is a well developed, well nourished patient who is awake, alert, kdr and in mild distress. Head/Face: Normocephalic, atraumatic. Neck: Trachea midline, no thyromegaly or masses palpated, and no cervical lymphadenopathy. Supple, full range of motion without nuchal rigidity, or vertebral point tenderness. No Meningismus. Chest/axilla: Normal chest wall appearance and motion. Nontender with no deformity. No lesions are appreciated. Cardiovascular: Regular rate and rhythm with a normal S1 and S2. No gallops, murmurs, or rubs. Normal PMI, no JVD. No pulse deficits. Respiratory: Lungs have equal breath sounds bilaterally, clear to auscultation and percussion. No rales, rhonchi or wheezes noted. No increased work of breathing, no retractions or nasal flaring. Abdomen/GI: Soft, non-tender, with normal bowel sounds. No distension or tympany. No guarding or rebound. No evidence of tenderness throughout. Back: No spinal tenderness. No costovertebral tenderness. Full range of motion. Skin: Warm, dry with normal turgor. Normal color with no rashes, no lesions, and no evidence of cellulitis. MS/ Extremity: Pulses equal, no cyanosis. Neurovascular intact. Full, normal range of motion. Neuro: Awake and alert, GCS 15, oriented to person, place, time, and situation. Cranial nerves II-XII grossly intact. Motor strength 5/5 in all extremities. Sensory grossly intact. Cerebellar exam normal. Normal gait. Psych: Awake, alert, with orientation to person, place and time. Behavior, mood, and affect are within normal limits. 18:40 Eyes: Periorbital structures: swelling, that is mild, bilaterally. Vital Signs: 13:19 BP 91 / 52; Pulse 95; Resp 20 S; Temp 97.6(TE); Pulse Ox 94% on R/A; Weight 71.67 kg ca1 (R); Height 5 ft. 4 in. (162.56 cm) (R); 19:40 BP 103 / 69; Pulse 96; Resp 20; Pulse Ox 96% ; bs2 13:19 Body Mass Index 27.12 (71.67 kg, 162.56 cm) ca1 MDM: 22:12 Differential diagnosis: anaphylaxis, non IgE mediated drug reaction urticaria. Data [facility] reviewed: vital signs, nurses notes, lab test result(s), CBC, electrolytes. Data interpreted: Pulse oximetry: on room air is 96 %. Interpretation: normal. Counseling: I had a detailed discussion with the patient and/or guardian regarding: the historical points, exam findings, and any diagnostic results supporting the discharge/admit diagnosis, lab results, the need for outpatient follow up, an allergy/auto radiator specialist, to return to the emergency department if symptoms worsen or persist or if there are any questions or concerns that arise at home. Response to treatment: the patient's symptoms have resolved after treatment, the patient's blood pressure is in an acceptable range, mental status has returned to baseline, the patient no longer shows bradycardia, the patient is not short of breath, the patient is not tachycardic, the patient's pain is gone, the patient's temperature has normalized. 22:14 Patient medically screened. [facility] 11/22 18:39 Order name: Basic Metabolic Panel; Complete Time: 19:50 [facility] 11/22 18:39 Order name: CBC with Diff; Complete Time: 20:29 [facility] 11/22 18:39 Order name: Hepatic Function; Complete Time: 19:50 kdr 11/22 18:39 Order name: Lipase; Complete Time: 19:50 [facility] 11/22 20:04 Order name: CBC Smear Scan; Complete Time: 20:29 EDMS 11/22 18:39 Order name: IV Saline Lock; Complete Time: 19:02 kdr 11/22 18:39 Order name: Labs collected and sent; Complete Time: 19:02 kdr Administered Medications: 19:02 Drug: SOLU-Medrol (methylPrednisoLONE) 60 mg Route: IVP; Site: left antecubital; tr6 22:05 Follow up: Response: No adverse reaction ea 19:02 Drug: NS 0.9% 1000 ml Route: IV; Rate: 1 bolus; Site: left antecubital; tr6 22:00 Follow up: Response: No adverse reaction; IV Status: Completed infusion; IV Intake: ea 1000ml 19:03 Drug: Pepcid (famotidine) 20 mg Route: IVP; Site: left antecubital; tr6 19:03 Drug: Benadryl (diphenhydrAMINE) 25 mg Route: IVP; Site: left antecubital; tr6 19:03 Drug: Zofran (Ondansetron) 4 mg Route: IVP; Site: left antecubital; tr6 22:05 Follow up: Response: No adverse reaction ea 21:24 Drug: KeFLEX (cephalexin) 500 mg Route: PO; ea 22:28 Follow up: Response: No adverse reaction ea Disposition Summary: 11/22/20 22:14 Discharge Ordered Location: Home [facility] Problem: new [facility] Symptoms: have improved [facility] Condition: Stable [facility] Diagnosis - Allergic urticaria [facility] - Allergic Reaction, Medication [facility] Followup: [facility] - With: Private Physician - When: 1 - 2 days - Reason: Worsening of condition, Recheck today's complaints, Continuance of care, Re-evaluation by your physician Followup: [facility] - With: Camilo Kelley MD - When: 1 - 2 days - Reason: Worsening of condition, Recheck today's complaints Followup: [facility] - With: Mc Crandall MD - When: 2 - 3 days - Reason: Worsening of condition, Recheck today's complaints Discharge Instructions: - Discharge Summary Sheet [facility] - Allergies, Adult [facility] - Hives, [id number] [facility] Forms: - Medication Reconciliation Form [facility] - Thank You Letter [facility] - Antibiotic Education [facility] - Prescription Opioid Use [facility] Prescriptions: - Benadryl 25 mg Oral Capsule - take 1 capsule by ORAL route every 6 hours As needed; 30 tablet; Refills: 0, [facility] Product Selection Permitted - Cephalexin 500 mg Oral Capsule - take 1 capsule by ORAL route every 8 hours for 10 days; 30 capsule; Refills: 0, [facility] Product Selection Permitted - ondansetron 4 mg Oral tablet,disintegrating - place 1 tablet by TRANSLINGUAL route every 8 hours As needed; 10 tablet; mh7 Refills: 0, Product Selection Permitted - Pepcid 20 mg Oral Tablet - take 1 tablet by ORAL route every 12 hours for 5 days; 10 tablet; Refills: 0, [facility] Product Selection Permitted - Prednisone 20 mg Oral Tablet - take 2 tablets by ORAL route once daily for 5 days; 10 tablet; Refills: 0, [facility] Product Selection Permitted Signatures: Dispatcher [employer] Rachid Benjamin MD MD [facility] Darline Watts RN RN ea Acob, Cheryl, RN RN ca1 Holmes, Maurice, MD MD [facility] Ariane Guerrero RN RN tr6
[2020-11-22 22:52] VITALS: TEMP 97.6
[2020-11-22 22:54] VITALS: BP 103/69; O2SAT 96
== END 2020-11-22 22:27 | disposition home or self-care (01) ==
LOC: ER 12:29
DX: L50.0 Allergic urticaria (principal); Z88.8 Allergy status to other drugs, medicaments and biological substances; Z88.1 Allergy status to other antibiotic agents; Z88.0 Allergy status to penicillin
CPT/HCPCS: 96361; 85025; 80048; 36415; 80076; 83690; 96375; 96374; 99284; J1200; J7030; J2405; J1720; J2930

== ENCOUNTER 2022-08-01 12:11 | Inpatient (IN) | payer BC ==
[2022-08-01] MEDS ORDERED: LEVALBUTEROL 1.25 MG/3 ML NEB ONE (12:49)
[2022-08-01 13:21] LABS: Absolute Lymphocytes (CBC) 2.6 K/uL (0.7-4.9); Hematocrit 32.9 % (36.0-45.0); Lymphocytes % 13.7 % (15.3-44.8); MCV 80.7 fL (80-100); RBC Red Blood Cell Count 4.08 M/uL (3.86-4.86)
--- NOTE | 2022-08-01 13:32 | RAD REPORT ---
EXAM DESCRIPTION: RAD - Chest Single View - 08/01/2022 1:13 pm CLINICAL HISTORY: SOB COMPARISON: Chest Pa And Lat (2 Views) dated 07/21/2022; Chest Single View dated 05/07/2020; Chest Sing le View dated 05/05/2020; Chest Single View dated 04/29/2020; Chest For Pe Angio dated 09/10/2020 FINDINGS: Lines: Pacemaker/ICD. Lungs: Chronic interstitial lung changes with worsening airspace disease in the lung bases bilaterall y. Pleural: No significant pleural effusions or pneumothorax. Cardiac: Cardiomegaly. Mediastinum: Within normal limits. Bones: No acute fractures. Other: None IMPRESSION: Airspace disease in lung bases concerning for pneumonia superimposed upon a background o f chronic interstitial lung disease.
[2022-08-01 13:58] LABS: SARS-COV-2 RT PCR NEGATIVE (NEGATIVE)
--- NOTE | 2022-08-01 14:09 | ER ---
Nurse's Notes [facility] Name: Flakita Stevenson Age: 62 yrs Sex: Female : 1960 Arrival Date: 08/01/2022 Time: 12:11 Bed 14 Private MD: Diagnosis: Community-acquired pneumonia -hypoxia Presentation: 08/01 12:15 Chief complaint: Spouse and/or significant other states: DX with pneumonia recently by ss Dr. Cormier and given abx by PCP. Pt c/o worsening SOB. Coronavirus screen: Client denies travel out of the [place] in the last 14 days. Ebola Screen: Patient denies exposure to infectious person. Patient denies travel to an Ebola-affected area in the 21 days before illness onset. Initial Sepsis Screen: Does the patient meet any 2 criteria? No. Patient's initial sepsis screen is negative. Does the patient have a suspected source of infection? Yes: Productive cough/pneumonia. Risk Assessment: Do you want to hurt yourself or someone else? Patient reports no desire to harm self or others. Onset of symptoms was July 22, 2022. 12:15 Method Of Arrival: Wheelchair 12:15 Acuity: FRANSICO 2 ss Historical: - Allergies: 12:18 Bactrim; ss 12:18 Cipro; 12:18 PENICILLINS; 12:35 Prednisone; ss - Home Meds: 12:35 spironolactone 25 mg Oral tab 1 tab once daily [Active]; lisinopril 5 mg Oral tab 1 tab ss once daily [Active]; digoxin 125 mcg Oral tab 1 tab once daily [Active]; hydrochlorothiazide 12.5 mg Oral tab 1 tab once daily [Active]; Caltrate + D3 Plus Minerals 300 mg-800 unit -25 mg-0.5 mg Oral tab [Active]; sotalol 80 mg Oral tablet 2 times per day [Active]; - PMHx: 12:35 Pulmonary fibrosis s/p COVID and radiation; Lymphoma; Afib; ss - PSHx: 12:35 Pacemaker/ defib; ss - Immunization history:: Client reports receiving the 2nd dose of the Covid vaccine. - Social history:: Smoking status: Patient denies any tobacco usage or history of. Screenin:30 [facility] ED Fall Risk Assessment (Adult) Score/Fall Risk Level 0 - 2 = Low Risk. Abuse eh3 screen: Denies threats or abuse. Denies injuries from another. Nutritional screening: No deficits noted. Tuberculosis screening: No symptoms or risk factors identified. Assessment: 12:30 General: Appears in no apparent distress. uncomfortable, Behavior is cooperative, eh3 appropriate for age. Pain: Denies pain. Neuro: Level of Consciousness is awake, alert, obeys commands, Oriented to person, place, time, situation. Cardiovascular: Capillary refill < 3 seconds Patient's skin is warm and dry. Rhythm is A-V sequential pacer. Respiratory: Airway is patent Respiratory effort is labored, Respiratory pattern is symmetrical, tachypnea Breath sounds with wheezes bilaterally. GI: Abdomen is round non-distended. : No signs and/or symptoms were reported regarding the genitourinary system. Derm: Skin is pink, warm \T\ dry. Musculoskeletal: Circulation, motion, and sensation intact. 13:00 Reassessment: Patient appears in no apparent distress at this time. Patient and/or 3 family updated on plan of care and expected duration. Pain level reassessed. Patient is alert, oriented x 3, labored respirations, skin warm/dry/pink. 14:00 Reassessment: Patient appears in no apparent distress at this time. Patient and/or eh3 family updated on plan of care and expected duration. Pain level reassessed. Patient is alert, oriented x 3, labored respirations, skin warm/dry/pink. 15:00 Reassessment: Patient appears in no apparent distress at this time. Patient and/or eh3 family updated on plan of care and expected duration. Pain level reassessed. Patient is alert, oriented x 3, labored respirations, skin warm/dry/pink. 16:00 Reassessment: Patient appears in no apparent distress at this time. Patient and/or eh3 family updated on plan of care and expected duration. Pain level reassessed. Patient is alert, oriented x 3, labored respirations, skin warm/dry/pink. Vital Signs: 12:15 BP 116 / 54; Pulse 99; Resp 24; Temp 98.1(O); Pulse Ox 84% on 4 lpm NC; Weight 56.7 kg; ss Height 5 ft. 3 in. ; Pain 0/10; 13:00 BP 110 / 53; Pulse 90; Resp 24; Pulse Ox 100% on 4 lpm NC; eh3 14:00 BP 103 / 61; Pulse 93; Resp 25; Pulse Ox 98% on 4 lpm NC; eh3 15:00 BP 104 / 59; Pulse 95; Resp 25; Pulse Ox 98% on 4 lpm NC; eh3 16:00 BP 98 / 54; Pulse 97; Resp 24; Temp 98.7(O); Pulse Ox 99% on 4 lpm NC; eh3 12:15 Body Mass Index 22.14 (56.70 kg, 160.02 cm) ss 12:15 Pain Scale: Adult ss ED Course: 12:12 Patient arrived in ED. am2 12:18 Triage completed. ss 12:18 Chad Conrad PA is PHCP. m 12:18 Meet Ingram MD is Attending Physician. m 12:18 Arm band placed on right wrist. ss 12:30 Patient has correct armband on for positive identification. Placed in gown. Bed in low eh3 position. Call light in reach. Side rails up X2. Client placed on continuous cardiac and pulse oximetry monitoring. NIBP monitoring applied. Door closed. Noise minimized. Lights dimmed. Warm blanket given. 12:33 Dana Srivastava, CELESTE is Primary Nurse. eh3 13:00 Inserted saline lock: 20 gauge in left antecubital area, using aseptic technique. Blood eh3 collected. 13:13 EKG done, by ED staff. 3 13:15 XRAY Chest (1 view) In Process Unspecified. EDMS 14:07 Dipak Yee MD is Hospitalizing Provider. [facility] 16:30 No provider procedures requiring assistance completed. Patient admitted, IV remains in eh3 place. Administered Medications: 12:40 Drug: Levalbuterol Inhalation 1.25 mg Route: Inhalation; eh3 13:11 Follow up: Response: Wheezing diminished eh3 14:25 Drug: Rocephin IV 1 grams Route: IV; Rate: calculated rate; Site: left antecubital; eh3 15:00 Follow up: Response: No adverse reaction; IV Status: Completed infusion; IV Intake: [id number] 15:30 Drug: NS 0.9% IV 500 ml Route: IV; Rate: bolus; Site: left antecubital; eh3 16:30 Follow up: IV Status: Completed infusion; IV Intake: 500ml eh3 Medication: 16:30 VIS not applicable for this client. eh3 Intake: 15:00 IV: 50ml; Total: 50ml. eh3 16:30 IV: 500ml; Total: 550ml. eh3 Outcome: 14:08 Decision to Hospitalize by Provider. m 16:30 Admitted to ER Hold. Please see [facility] for further documentation. eh3 16:30 Condition: stable 16:30 Instructed on the need for admit. 22:49 Admitted to Med/surg accompanied by nurse, via wheelchair, room 215, with oxygen, with ll3 chart, Report called to CELESTE White 22:49 Condition: stable 22:49 Instructed on the need for admit, Demonstrated understanding of instructions. 23:23 Patient left the ED. ll3 Signatures: Dispatcher [employer] EDMS GalenTan aparicio tm3 Chad Conrad PA PA jmm Smirch, Shelby, RN RN Elisabet López am2 Alia Bullock RN RN 3 Dana Srivastava, RN RN 3 Corrections: (The following items were deleted from the chart) 12:39 12:18 PMHx: pulmonary fibrosis s/p COVID and Lung CA; ss ss 13:19 12:30 Respiratory: Airway is patent Respiratory effort is labored, Respiratory pattern eh3 is symmetrical, tachypnea eh3 16:11 15:58 Reassessment: Patient appears in no apparent distress at this time. Patient eh3 and/or family updated on plan of care and expected duration. Pain level reassessed. Patient is alert, oriented x 3, labored respirations, skin warm/dry/pink eh3
--- NOTE | 2022-08-01 14:09 | EDPHYS ---
Physician Documentation [facility] Name: Flakita Stevenson Age: 62 yrs Sex: Female : 1960 Arrival Date: 08/01/2022 Time: 12:11 Bed 14 Private MD: ED Physician Meet Ingram HPI: 08/01 12:20 This 62 yrs old Female presents to ER via Wheelchair with complaints of Shortness Of jmm Breath. 12:20 The patient has shortness of breath at rest. Onset: The symptoms/episode began/occurred jmm gradually, 2 day(s) ago. This is a 62 year old female with a history of pulmonary fibrosis that presents to the ED with complaints of sob worsening over the past 2 days. Patient recently finished a course of doxycycline 2 days ago. . Historical: - Allergies: 12:18 Bactrim; ss 12:18 Cipro; ss 12:18 PENICILLINS; ss 12:35 Prednisone; ss - Home Meds: 12:35 spironolactone 25 mg Oral tab 1 tab once daily [Active]; lisinopril 5 mg Oral tab 1 tab ss once daily [Active]; digoxin 125 mcg Oral tab 1 tab once daily [Active]; hydrochlorothiazide 12.5 mg Oral tab 1 tab once daily [Active]; Caltrate + D3 Plus Minerals 300 mg-800 unit -25 mg-0.5 mg Oral tab [Active]; sotalol 80 mg Oral tablet 2 times per day [Active]; - PMHx: 12:35 Pulmonary fibrosis s/p COVID and radiation; Lymphoma; Afib; ss - PSHx: 12:35 Pacemaker/ defib; ss - Immunization history:: Client reports receiving the 2nd dose of the Covid vaccine. - Social history:: Smoking status: Patient denies any tobacco usage or history of. ROS: 12:20 Cardiovascular: Negative for chest pain, palpitations, and edema. jmm 12:20 Constitutional: Positive for body aches, fatigue. 12:20 Respiratory: Positive for shortness of breath. 12:20 All other systems are negative. Exam: 12:20 Constitutional: This is a well developed, well nourished patient who is awake, alert, jmm and in no acute distress. Head/Face: atraumatic. Eyes: EOMI, no conjunctival erythema appreciated ENT: Moist Mucus Membranes Neck: Trachea midline, Supple Chest/axilla: Normal chest wall appearance and motion. Cardiovascular: Regular rate and rhythm. No edema appreciated Respiratory: Normal respirations, no respiratory distress appreciated Abdomen/GI: Non distended Back: Normal ROM Skin: General appearance color normal MS/ Extremity: Moves all extremities, no obvious deformities appreciated, no edema noted to the lower extremities Neuro: Awake and alert Psych: Behavior is normal, Mood is normal, Patient is cooperative and pleasant Vital Signs: 12:15 BP 116 / 54; Pulse 99; Resp 24; Temp 98.1(O); Pulse Ox 84% on 4 lpm NC; Weight 56.7 kg; ss Height 5 ft. 3 in. ; Pain 0/10; 13:00 BP 110 / 53; Pulse 90; Resp 24; Pulse Ox 100% on 4 lpm NC; eh3 14:00 BP 103 / 61; Pulse 93; Resp 25; Pulse Ox 98% on 4 lpm NC; eh3 15:00 BP 104 / 59; Pulse 95; Resp 25; Pulse Ox 98% on 4 lpm NC; eh3 16:00 BP 98 / 54; Pulse 97; Resp 24; Temp 98.7(O); Pulse Ox 99% on 4 lpm NC; eh3 12:15 Body Mass Index 22.14 (56.70 kg, 160.02 cm) ss 12:15 Pain Scale: Adult ss MDM: 12:20 Patient medically screened. alessandra 18:15 Differential diagnosis: pneumonia, copd, reactive airway, acute bronchitis. Data [facility] reviewed: vital signs, nurses notes, lab test result(s), radiologic studies, plain films. Counseling: I had a detailed discussion with the patient and/or guardian regarding: the historical points, exam findings, and any diagnostic results supporting the discharge/admit diagnosis, lab results, radiology results, the need for further work-up and treatment in the hospital. ED course: I discussed the patient with dr. Yee whom accepted the patient to his service. . 08/01 12:31 Order name: Basic Metabolic Panel; Complete Time: 14:56 [facility] 08/01 12:31 Order name: CBC with Diff; Complete Time: 13:23 [facility] 08/01 12:31 Order name: LFT's; Complete Time: 14:56 [facility] 08/01 12:31 Order name: Magnesium; Complete Time: 14:56 [facility] 08/01 12:31 Order name: NT PRO-BNP; Complete Time: 14:56 [facility] 08/01 12:31 Order name: PT-INR; Complete Time: 14:18 [facility] 08/01 12:31 Order name: Troponin HS; Complete Time: 14:56 [facility] 08/01 12:31 Order name: Lactate w/ 2H reflex if indic.; Complete Time: 13:40 [facility] 08/01 12:31 Order name: Blood Culture Adult (2) [facility] 08/01 12:31 Order name: COVID-19/FLU A+B/RSV; Complete Time: 13:59 [facility] 08/01 14:57 Order name: Basic Metabolic Panel [facility] 08/01 14:57 Order name: Basic Metabolic Panel [facility] 08/01 14:57 Order name: CBC with Automated Diff [facility] 08/01 14:57 Order name: CBC with Automated Diff [facility] 08/01 14:58 Order name: Sputum Culture [facility] 08/01 14:58 Order name: Sputum Gram Stain [facility] 08/01 15:01 Order name: Procalcitonin; Complete Time: 16:09 [facility] 08/01 15:54 Order name: Blood Culture [facility] 08/01 12:31 Order name: XRAY Chest (1 view); Complete Time: 13:36 [facility] 08/01 14:57 Order name: Thorax Wo Con; Complete Time: 15:18 [facility] 08/01 12:31 Order name: EKG; Complete Time: 12:32 [facility] 08/01 14:57 Order name: Regular [facility] 08/01 12:31 Order name: Cardiac monitoring; Complete Time: 12:33 [facility] 08/01 12:31 Order name: EKG - Nurse/Tech; Complete Time: 13:11 [facility] 08/01 12:31 Order name: IV Saline Lock; Complete Time: 13:11 [facility] 08/01 12:31 Order name: Labs collected and sent; Complete Time: 13:11 [facility] 08/01 12:31 Order name: O2 Per Protocol; Complete Time: 12:33 [facility] 08/01 12:31 Order name: O2 Sat Monitoring; Complete Time: 12:33 [facility] Administered Medications: 12:40 Drug: Levalbuterol Inhalation 1.25 mg Route: Inhalation; eh3 13:11 Follow up: Response: Wheezing diminished eh3 14:25 Drug: Rocephin IV 1 grams Route: IV; Rate: calculated rate; Site: left antecubital; eh3 15:00 Follow up: Response: No adverse reaction; IV Status: Completed infusion; IV Intake: [id number] 15:30 Drug: NS 0.9% IV 500 ml Route: IV; Rate: bolus; Site: left antecubital; eh3 16:30 Follow up: IV Status: Completed infusion; IV Intake: 500ml eh3 Disposition Summary: 08/01/22 14:08 Hospitalization Ordered Hospitalization Status: Inpatient Admission sweta Provider: Dipak Yee Location: Telemetry/[facility] (Inpatient) jm Condition: Stable jmm Problem: new jmm Symptoms: have improved jmm Bed/Room Type: Standard [facility] Room Assignment: 215(08/01/22 22:25) cg Diagnosis - Community-acquired pneumonia -hypoxia [facility] Forms: - Medication Reconciliation Form [facility] - SBAR form [facility] Addendum: 08/06/2022 13:44 Co-signature as Attending Physician, Dipak Yee MD I agree with the assessment and c umaña plan of care. Signatures: Dispatcher [employer] Meet Vasquez MD MD cha Mickail, Joel, PA PA jm Marleni Ocasio RN RN ss Garcia, Cindy, CELESTE ALONSO Dana Srivastava RN RN 3 Corrections: (The following items were deleted from the chart) 08/01 12:39 12:18 PMHx: pulmonary fibrosis s/p COVID and Lung CA; [facility] 22:25 14:08 jmm cg
[2022-08-01 14:13] LABS: Protime INR 1.19
[2022-08-01] MEDS ORDERED: CEFTRIAXONE 1000 MG/VIAL ONE (14:30)
[2022-08-01] MEDS ORDERED: NA CHLORIDE 0.9% 50 ML ONE (14:31)
[2022-08-01 14:39] LABS: Albumin 2.9 g/dL (3.4-5.0); Bilirubin Direct 0.2 mg/dL (0-0.2); Bilirubin Total 0.5 mg/dL (0.2-1.0); Potassium 3.9 mEq/L (3.5-5.1); Protein, Total 8.3 g/dL (6.4-8.2); Troponin High Sensitivity 5.4 pg/mL (<58.9)
[2022-08-01] MEDS ORDERED: IPRATROPIUM BROM 0.5MG/2.5ML NEB PRN (14:51)
--- NOTE | 2022-08-01 14:51 | P.HP ---
Certification for Inpatient With expected LOS: >2 Midnights Practitioner: I am a practitioner with admitting privileges, knowledge of patient current condition, hospital course, and medical plan of care. 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 and COVID been sick for about 3 weeks and was treated with doxycycline no relief [place] any fever or chills complaining of worsening dyspnea he does take oxygen at night and it appeared in the hospital Allergies ciprofloxacin [From Cipro] Allergy (Verified 04/27/20 14:32) UNK Penicillins Allergy (Verified 04/27/20 14:32) UNK prednisone Allergy (Verified 08/01/22 16:52) Nausea/Vomiting Home Medications: Cyanocobalamin (Vitamin B-12) [Vitamin B-12] 1,000 mcg PO DAILY 04/27/20 Digoxin 125 mcg PO DAILY 04/27/20 Ascorbic Acid [Vitamin C*] 500 mg PO TID #90 tablet 05/08/20 Melatonin 5 mg PO BEDTIME #30 tablet 05/08/20 Thiamine HCl 100 mg PO DAILY #30 tablet 05/08/20 Zinc Sulfate [Zinc Sulfate*] 220 mg PO DAILY #30 cap 05/08/20 Calcium Carbonate/Vitamin D3 [Caltrate 600 Plus D3 Tablet] 1 tab PO DAILY 08/01/22 Lisinopril [Zestril] 1 tab PO DAILY 08/01/22 Rivaroxaban [Xarelto*] 1 tab PO DAILY 08/01/22 Sotalol HCl [Betapace*] 1 tab PO BID 08/01/22 Spironolactone 1 tab PO DAILY 08/01/22 hydroCHLOROthiazide [Hydrochlorothiazide] 1 tab PO DAILY 08/01/22 - Past Medical/Surgical History Diabetic: No -: Hypertension -: Systolic CHF -: History of defibrillator -: 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 -: History of Hodgkin's lymphoma with prior chemo/rad -: ICD placed -: port placement -: hernia repair -: cholecystectomy -: retna attached Psychosocial/ Personal History: Patient lives at home - Social History Alcohol use: Yes CD- Drugs: No Caffeine use: No Review of Systems 10-point ROS is otherwise unremarkable General: Weakness Respiratory: Cough, Shortness of Breath Physical Examination - Vital Signs Temperature: 98.1 F Blood Pressure: 116/54 Pulse: 99 Respirations: 24 Pulse Ox (%): 84 (4 L) - Physical Exam General: Alert, Mild distress HEENT: Atraumatic Neck: Supple Respiratory: Crackles/rales (Bilateral fine crackles throughout both lung field) Cardiovascular: Normal S1 S2 Gastrointestinal: Normal bowel sounds, Soft and benign Musculoskeletal: No clubbing, No swelling Neurological: Normal speech, Normal strength at 5/5 x4 extr - Studies Laboratory Data (last 24 hrs) 08/01/22 13:06: PT 14.0 H, INR 1.19 08/01/22 13:06: WBC 18.90 H, Hgb 11.0 L, Hct 32.9 L, Plt Count 487 H 08/01/22 13:06: Sodium 122 L, Potassium 3.9, BUN 10, Creatinine 0.81, Glucose 175 H, Total Bilirubin 0.5, AST 23, ALT 30, Alkaline Phosphatase 98 Assessment and Plan - Problems (Diagnosis) (1) Pneumonia Current Visit: Yes Status: Acute Plan: Patient is 62 years of age admitted with worsening dyspnea history of pulmonary fibrosis combination of radiation was provided due to lymphoma and COVID infection also has a history of atrial fibrillation chest x-ray shows bilateral changes not clear whether acute on chronic will order CT scan of the chest treated with 3 weeks of doxycycline with no relief patient is mildly hyponatremic White count is elevated admit to the hospital CT scan broad- spectrum antibiotics Qualifiers: Pneumonia type: due to unspecified organism (2) Pulmonary fibrosis Current Visit: Yes Status: Acute Plan: Patient has a history of pulmonary fibrosis as a consequence of COVID and prior radiation therapy for lymphoma x-ray shows significant worsening continue with IV antibiotics stable treatment with steroids - Advance Directives Does patient have a Living Will: No Does patient have a Durable POA for Healthcare: No
[2022-08-01 14:56] LABS: Magnesium 1.9 mg/dL (1.6-2.4)
--- NOTE | 2022-08-01 15:18 | RAD REPORT ---
EXAM DESCRIPTION: CT - Thorax Wo Con - 08/01/2022 3:06 pm CLINICAL HISTORY: pneumonia/fibrosis COMPARISON: Chest For Pe Angio dated 09/10/2020; Chest For Pe Angio dated 04/27/2020; Chest For Pe Tasneem o dated 04/25/2020; Chest Pa And Lat (2 Views) dated 07/21/2022; Chest Single View dated 08/01/2022 FINDINGS: Chest Wall: Left upper chest wall pacemaker. Lungs: Chronic interstitial lung disease with honeycombing and cylindrical bronchiectasis. Small area s of subpleural consolidation. Right upper pole nodule measuring 15 millimeters. Pleura: No significant effusions or pneumothorax. Mediastinum/la: No pathologic lymphadenopathy. Mild thickened distal esophagus with small hiatal he rnia. Pulmonary arteries/Aorta: Limited evaluation without contrast. No aortic aneurysm. Heart: No significant pericardial effusion. Normal heart size. Upper abdomen: No acute abnormality. Cholecystectomy. Left upper pole renal lesion which is likely a cyst. Bones: No acute abnormality. All CT scans are performed using dose optimization technique as appropriate and may include automated exposure control or mA/KV adjustment according to patient size. IMPRESSION: Marked progression of pulmonary fibrosis compared with 202 possibly reflecting the usua l interstitial pneumonia (UIP). No specific CT findings to suggest pneumonia however exacerbation is difficult to exclude. Recommend three-month follow-up chest CT regarding a possible right upper lobe nodule.
[2022-08-01 15:40] VITALS: BMI 22.1
[2022-08-01] MEDS: CEFEPIME 2 GM in NA CHLORIDE 0.9% 100 ML IV SCH (16:00)
[2022-08-01] MEDS ORDERED: NA CHLORIDE 0.9% 500 ML ONE (16:06)
[2022-08-01] MEDS ORDERED: CEFEPIME 2 GM VIAL ONE (16:06)
[2022-08-01] MEDS ORDERED: NA CHLORIDE 0.9% 100 ML ONE (16:06)
[2022-08-01] MEDS ORDERED: carvediloL 12.5 MG TAB PO SCH (18:00)
[2022-08-01] MEDS ORDERED: carvediloL 6.25 MG TAB ONE (18:30)
[2022-08-01] MEDS ORDERED: SOTALOL HCL 80 MG TAB PO ONE (19:38)
[2022-08-01] MEDS ORDERED: SOTALOL HCL 80 MG TAB ONE (19:55)
[2022-08-01] MEDS ORDERED: IPRATROPIUM BROM 0.5MG/2.5ML ONE (20:32)
[2022-08-01] MEDS ORDERED: RIVAROXABAN 10 MG TABLET PO ONE ×3 (20:59→21:17)
[2022-08-01] MEDS ORDERED: ASPIRIN EC 81 MG TAB PO ONE ×2 (20:59→21:19)
[2022-08-01] MEDS ORDERED: RIVAROXABAN 20 MG TABLET PO ONE ×2 (21:19→21:24)
[2022-08-01] MEDS ORDERED: MELATONIN 5 MG TABLET PO ONE (21:19)
[2022-08-01] MEDS: MELATONIN 5 MG TABLET PO SCH (22:48)
[2022-08-02] MEDS ORDERED: NA CHLORIDE 0.9% 250 ML IV ONE (00:38)
[2022-08-02] MEDS: CEFEPIME 2 GM in NA CHLORIDE 0.9% 100 ML IV SCH ×3 (00:49→17:12)
[2022-08-02 02:39] LABS: Absolute Lymphocytes (CBC) 2.5 K/uL (0.7-4.9); Hematocrit 28.9 % (36.0-45.0); Lymphocytes % 14.4 % (15.3-44.8); MCV 81.8 fL (80-100); MPV 7.7 fL (7.6-11.3); RBC Red Blood Cell Count 3.53 M/uL (3.86-4.86)
[2022-08-02 03:01] LABS: Potassium 3.9 mEq/L (3.5-5.1)
[2022-08-02] MEDS: SOTALOL HCL 80 MG TAB PO SCH ×2 (06:00→17:12)
--- NOTE | 2022-08-02 07:13 | P.PN ---
Date of Service: 08/02/22 Subjective: feels about the same as yesterday appears anxious, very fidgety, some sobbing complains of dry / stuffy nose; from oxygen reports previous CT scan first week of june afebrile ROS: 10 point ROS as noted above, otherwise negative Physical Exam: GEN: Alert, oriented, anxious HEENT: Normal conjunctiva, sclera anicteric CV: Regular rate and rhythm, no edema Pulm: labored respirations on 8L NC, crackles/rales, +cough ABD: Soft, nontender, nondistended Neuro: Normal speech, normal affect vitals reviewed Problem List: Dyspnea secondary to pulmonary fibrosis 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 with defibrillator Chronic systolic CHF A-fib, pacemaker History of Hodgkin's lymphoma with prior chemo/rad Hyponatremia Hypertension Anxiety Dyspnea h/o pulmonary fibrosis CXR- shows bilateral changes not clear whether acute on chronic Chest CT - Marked progression of pulmonary fibrosis compared with 2020; no obvious pneumonia procal negative s/p doxycycline with no relief reports 2L NC at home only at night except for last 2-3 weeks WBC elevated Nephrology consult Continue broad spectrum abx Sputum culture pending Blood cultures pending continue IVF imaging requested from [facility] start steroids for worsening pulm fibroxis 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 with defibrillator Chronic systolic CHF A-fib, pacemaker Cardio consulted continue aspirin continue beta-prabhu VTE: Xarelto Code: Full Dispo: Home
[2022-08-02] MEDS ORDERED: RIVAROXABAN 10 MG TABLET PO SCH ×3 (09:00→17:00)
[2022-08-02] MEDS ORDERED: DIGOXIN 0.125 MG TABLET PO SCH (09:00)
[2022-08-02] MEDS: NA CHLORIDE 0.9% 1,000 ML IV SCH (09:33)
[2022-08-02 15:14] LABS: Potassium 3.8 mEq/L (3.5-5.1)
[2022-08-02] MEDS: ASPIRIN EC 81 MG TAB PO SCH (17:12)
[2022-08-02] MEDS: RIVAROXABAN 20 MG TABLET PO SCH (17:12)
[2022-08-02] MEDS: METHYLPREDNISOLONE 40 MG INJ IV SCH (18:18)
--- NOTE | 2022-08-02 19:40 | CON ---
Date of Consultation: 08/02/2022 Chief Complaint: Hyponatremia, hypoosmolar state. History Of Present Illness: Patient is a 62-year-old woman with past medical history related to pulmonary fibrosis induced by radiation, history of COVID. She has been sick for about 3 weeks and was treated with doxycycline with no relief and fever or chills, complaining of worsening of dyspnea and she came to the hospital. Is diagnosed with pneumonia. Patient has had poor p.o. intake, but she denies diarrhea, nausea, vomiting. She has multiple medical problems including history of chronic dyspnea on exertion related to pulmonary fibrosis, combination of radiation and due to lymphoma and COVID infection, history of atrial fibrillation. Workup was initiated for pneumonia. Patient is to have a CT scan and broad-spectrum antibiotics were started. Nephrology consultation is requested for hyponatremia. Patient remains asymptomatic. Does not have headaches or vision changes. Denies confusion. On previous occasion, back in 2020, she was found to have hyponatremia as well, although she does not remember how she was treated at that time. Patient has history of systolic congestive heart failure, diabetes mellitus, history of defibrillator. Review of Systems: General: Patient denies fever, chills. Eyes: Denies vision changes. Ears, Nose, Mouth, and Throat: Denies sore throat, earache. Respiratory: She has chronic dyspnea on exertion. Denies PND or orthopnea. Cardiovascular: Denies chest pain, palpitation, or syncope. GI: She has some nausea and decreased p.o. intake, although she denies hematemesis. : Denies dysuria, hematuria. Musculoskeletal: Denies muscle aches or joint swelling. All other systems reviewed and all are negative. Past Medical History: Hypertension, systolic congestive heart failure, history of defibrillator, diabetes mellitus, history of cardiac toxicity related to chemotherapy, history of Hodgkin lymphoma with prior chemo and radiation, ICD placement, cholecystectomy, retinal detachment. Social History: Denies tobacco, alcohol, or illicit drug. Physical Examination: Vital Signs: Blood pressure is 116/54, heart rate 99, respiratory rate 24, pulse oximeter 84 on 4 L. General: Patient is awake, alert. Follows commands. Eyes: Anicteric sclerae. EOMI. Ears, Nose, Mouth, and Throat: Oral mucosa moist. No pallor. Neck: Supple. No bruits. Lungs: Diminished breath sounds at bases. Heart: S1, S2. Abdomen: Soft, benign. Extremities: No edema. No clubbing. Neurological: Moving extremities. Cranial nerves intact. Psychiatric: Alert and oriented x3. Normal affect. Laboratory Data: WBC 18.9, hemoglobin 11.0, platelet count 487,000. Sodium 122, potassium 3.9, BUN 10, creatinine 0.81, glucose 175. Impression And Plan: Hyponatremia, hypoosmolar secondary to high ADH state complicated by HCTZ. Medications were reviewed and patient is off HCTZ and off spironolactone. Patient will continue normal saline. Plan is to check uric acid level and to evaluate urine and serum osmolality. Patient is on p.o. intake. She denies nausea or vomiting. She is on regular diet. Continue to monitor electrolytes. Patient has chronic hyponatremia. I recommend to avoid HCTZ for the further treatment and to continue to monitor and adjust IV fluids and treatment for hyponatremia. Patient may need to start sodium chloride tablet for hyponatremia. ALEXA/DAVID Voice ID: [id number] Report ID: [id number] [facility]
[2022-08-02 21:09] LABS: Magnesium 1.9 mg/dL (1.6-2.4); Phosphorus 2.3 mg/dL (2.5-4.9); Potassium 4.1 mEq/L (3.5-5.1); Uric Acid 3.1 mg/dL (2.6-6.0)
[2022-08-02] MEDS: MELATONIN 5 MG TABLET PO SCH (21:45)
[2022-08-02] MEDS: LORAZEPAM 0.5 MG TABLET PO SCH (21:45)
[2022-08-03] MEDS: CEFEPIME 2 GM in NA CHLORIDE 0.9% 100 ML IV SCH ×3 (01:36→17:04)
[2022-08-03] MEDS: METHYLPREDNISOLONE 40 MG INJ IV SCH ×3 (01:36→17:04)
[2022-08-03] MEDS: SOTALOL HCL 80 MG TAB PO SCH ×2 (05:52→17:04)
--- NOTE | 2022-08-03 07:02 | P.PN ---
Date of Service: 08/03/22 Subjective: Doing better today; feels like benzo helped with sleep remains anxiety no new / worsening problems ROS: 10 point ROS as noted above, otherwise negative Physical Exam: GEN: Alert, oriented, anxious HEENT: Normal conjunctiva, sclera anicteric CV: Regular rate and rhythm, no edema Pulm: labored respirations on 8L NC, b/l rhonchi ABD: Soft, nontender, nondistended Neuro: Normal speech, anxious, moves all extremities vitals reviewed Problem List: Dyspnea secondary to pulmonary fibrosis 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 with defibrillator Chronic systolic CHF A-fib, pacemaker History of Hodgkin's lymphoma with prior chemo/rad Hypertension Anxiety Dyspnea h/o pulmonary fibrosis CXR 08/01 - shows bilateral changes not clear whether acute on chronic Chest CT 08/01- Marked progression of pulmonary fibrosis compared with 2020; no obvious pneumonia Repeat CXR tomorrow procal negative s/p doxycycline with no relief as outpatient reports 2L NC at home only at night except for last 2-3 weeks WBC elevated Nephrology consult Continue broad spectrum abx Sputum culture pending Blood cultures pending DC IVF 08/03 imaging requested from [facility] Continue steroids for worsening pulm fibroxis pulm consulted 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 with defibrillator Chronic systolic CHF A-fib, pacemaker Cardio consulted continue aspirin continue beta-prabhu Hyponatremia - salt tablets VTE: Xarelto Code: Full Dispo: Home 48-72hrs
[2022-08-03 08:00] LABS: Absolute Lymphocytes (CBC) 1.3 K/uL (0.7-4.9); Lymphocytes % 11.3 % (15.3-44.8); MCV 82.7 fL (80-100); MPV 7.9 fL (7.6-11.3); RBC Red Blood Cell Count 3.51 M/uL (3.86-4.86)
[2022-08-03] MEDS: NA CHLORIDE 0.9% 1,000 ML IV SCH (08:06)
[2022-08-03 08:21] LABS: Albumin 2.5 g/dL (3.4-5.0); Bilirubin Total 0.5 mg/dL (0.2-1.0); Magnesium 2.2 mg/dL (1.6-2.4); Potassium 4.1 mEq/L (3.5-5.1); Protein, Total 7.7 g/dL (6.4-8.2); Thyroid Stimulating Hormone 0.786 uIU/mL (0.358-3.740)
[2022-08-03] MEDS ORDERED: POTASS/SODIUM PHOSPHATE 1 PKT POWD.PACK PO SCH (09:00)
--- NOTE | 2022-08-03 10:46 | P.PN ---
Subjective Date of Service: 08/03/22 Chief Complaint: Pneumonia No change in patient's condition CAT scan does look worse she probably has underlying superimposed pneumonia is very short of breath high oxygen requirement Review of Systems General: Weakness Respiratory: Cough, Shortness of Breath Physical Examination - Vital Signs Temperature: 98.1 F Blood Pressure: 116/54 Pulse: 99 Respirations: 24 Pulse Ox (%): 84 (4 L) - Physical Exam General: Alert, Moderate distress Respiratory: Diminished, Crackles/rales Cardiovascular: No edema, Regular rate/rhythm Assessment And Plan - Current Problems (Diagnosis) (1) Pneumonia Current Visit: Yes Status: Acute Plan: Patient is 62 years of age with a history of pulmonary fibrosis admitted with worsening shortness of breath is a significant worsening on the chest x-ray continue with cefepime also added some vancomycin titrate sat to 90% vital signs stable afebrile Qualifiers: Pneumonia type: due to unspecified organism (2) Pulmonary fibrosis Current Visit: Yes Status: Acute Plan: Patient has a history of pulmonary fibrosis as a consequence of COVID and prior radiation therapy for lymphoma x-ray shows significant worsening continue with IV antibiotics stable treatment with steroids
[2022-08-03] MEDS ORDERED: VANCOMYCIN 1 GM in NA CHLORIDE 0.9% 250 ML IVPB SCH (11:00)
[2022-08-03] MEDS: VANCOMYCIN 1.25 GM in NA CHLORIDE 0.9% 250 ML IVPB SCH (11:52)
[2022-08-03] MEDS: ASPIRIN EC 81 MG TAB PO SCH (17:04)
[2022-08-03] MEDS: RIVAROXABAN 20 MG TABLET PO SCH (17:04)
[2022-08-03] MEDS ORDERED: predniSONE 20 MG TAB PO SCH (17:30)
[2022-08-03 20:10] LABS: Potassium 4.2 mEq/L (3.5-5.1)
[2022-08-03] MEDS: MELATONIN 5 MG TABLET PO SCH (21:34)
[2022-08-03] MEDS: LORAZEPAM 0.5 MG TABLET PO SCH (21:35)
--- NOTE | 2022-08-03 23:43 | PN ---
Date of Progress Note: 08/03/2022 Chief Complaint: Hyponatremia. The patient has respiratory failure, acute on chronic. She remains on O2 nasal cannula. She has underlying pulmonary fibrosis, induced by radiation and secondary to pr evious COVID infection. Prior to this admission, she was feeling sick and had nausea, vomiting. Thr ee weeks ago, she was treated with doxycycline for shortness of breath, possible pneumonia. She has multiple medical problems including pulmonary fibrosis due to the combination of radiation, COVID, an d previous history of lymphoma, atrial fibrillation, recurrent pneumonia. Review of Systems: Denies fever or chills. Physical Examination: Lungs: Clear to auscultation bilaterally. Heart: S1, S2. Abdomen: Soft. Extremities: Minimal edema. Impression And Plan: Hyponatremia secondary to high ADH state, complicated by HCTZ. Medications wer e reviewed and patient is off HCTZ and off spironolactone. Patient will continue sodium chloride tab lets if sodium level does not improve. Over last 24 hours, sodium level is gradually improving. Pat ient is off HCTZ. I recommend to avoid HCTZ for further treatment and to continue to monitor and adj ust IV fluids as needed. The patient was taken off normal saline because of shortness of breath. Co ntinue Lasix for volume control. EB/MODL Voice ID: [id number] Report ID: [id number]
[2022-08-04] MEDS: CEFEPIME 2 GM in NA CHLORIDE 0.9% 100 ML IV SCH ×3 (00:22→16:50)
[2022-08-04] MEDS: METHYLPREDNISOLONE 40 MG INJ IV SCH ×3 (00:23→16:51)
[2022-08-04 03:47] LABS: Magnesium 2.2 mg/dL (1.6-2.4); Potassium 4.2 mEq/L (3.5-5.1)
[2022-08-04] MEDS: SOTALOL HCL 80 MG TAB PO SCH ×2 (05:04→19:10)
[2022-08-04] MEDS: VANCOMYCIN 1.25 GM in NA CHLORIDE 0.9% 250 ML IVPB SCH ×2 (05:04→22:47)
--- NOTE | 2022-08-04 07:06 | P.PN ---
Date of Service: 08/04/22 Subjective: feeling better yesterday; remains dyspneic on exertion episode of SOB this morning; switched to HFNC; requiring more O2 no trouble urinating ROS: 10 point ROS as noted above, otherwise negative Physical Exam: GEN: Alert, oriented, anxious HEENT: Normal conjunctiva, sclera anicteric CV: Regular rate and rhythm, no edema Pulm: labored respirations on 10L HFNC , b/l rhonchi ABD: Soft, nontender, nondistended Neuro: Normal speech, anxious, moves all extremities vitals reviewed Problem List: Dyspnea secondary to worsening pulmonary fibrosis with possible superimposing pneumonia 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 with defibrillator Chronic systolic CHF A-fib, pacemaker History of Hodgkin's lymphoma with prior chemo/rad Hypertension Anxiety Dyspnea h/o pulmonary fibrosis CXR 08/01 - shows bilateral changes not clear whether acute on chronic Chest CT 08/01 - Marked progression of pulmonary fibrosis compared with 2020; no obvious pneumonia requested CT images from [facility] - last done june 2022 able to obtain brief video clip from pulm fellow - significant progression CXR 08/04 - Slight decrease in lung volumes with background of progressive chronic interstitial lung disease procal negative s/p doxycycline with no relief as outpatient reports 2L NC at home only at night except for last 2-3 weeks WBC downtrending 17.8 -> 11.1 08/03 Nephrology consult Sputum culture negative Blood cultures pending DC IVF 08/03 pulm consulted recommends antibiotics; cefepime started on admission, vanc added 08/03 noted worsening of pulm fibrosis; steroids added; dosing per pulm recs Continue cefepime added vanc 08/03 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 with defibrillator Chronic systolic CHF A-fib, pacemaker Cardio consulted continue aspirin continue beta-prabhu echo pending Hyponatremia - salt tablets VTE: Xarelto Code: Full Dispo: Home 72hrs attempted to call patient's clinical research nurse coordinator per her request called on Thursday and Thursday; no response. left messages
--- NOTE | 2022-08-04 07:51 | RAD REPORT ---
EXAM DESCRIPTION: RAD - Chest Single View - 08/04/2022 6:50 am CLINICAL HISTORY: hypxoia; fibrosis, ?pna. f/u opacities COMPARISON: Chest Single View dated 08/01/2022; Chest Pa And Lat (2 Views) dated 07/21/2022; Chest Sing le View dated 05/07/2020; Chest Single View dated 05/05/2020; Thorax Wo Con dated 08/01/2022 FINDINGS: Lines: Pacemaker/ICD. Lungs: Similar background of chronic interstitial lung disease with areas of more confluent opacities . Lung volumes have decreased from prior. Pleural: No significant pleural effusions or pneumothorax. Cardiac: Cardiomegaly. Mediastinum: Within normal limits. Bones: No acute fractures. Other: None IMPRESSION: Slight decrease in lung volumes with background of progressive chronic interstitial lung disease but without evidence of a new superimposed acute consolidative pneumonia.
--- NOTE | 2022-08-04 12:46 | EKG ---
Test Date: 2022-08-01 Test Time: 12:53:06 Log Grader: DELLA MEASUREMENT RESULTS: Intervals: Rate: 96 TX: 152 QRSD: 120 QT: 376 QTc: 475 [place]: P: 69 TX: 152 QRS: 92 T: 10 INTERPRETIVE STATEMENTS: Electronic ventricular pacemaker Compared to ECG 04/25/2020 07:56:03 Sinus rhythm no longer present Ventricular preexcitation no longer present Electronically Signed On 08-04-22 12:40:25 CDT by Shmuel Wang
--- NOTE | 2022-08-04 12:46 | EKG ---
Test Date: 2022-08-01 Test Time: 12:56:47 Production Line: DELLA MEASUREMENT RESULTS: Intervals: Rate: 95 CO: 118 QRSD: 126 QT: 398 QTc: 500 [place]: P: 45 CO: 118 QRS: 94 T: 21 INTERPRETIVE STATEMENTS: Normal sinus rhythm Nonspecific intraventricular block Abnormal ECG Compared to ECG 08/01/2022 12:53:06 Ventricular-paced complex(es) or rhythm no longer present Electronically Signed On 08-04-22 12:40:22 CDT by hSmuel Wang
[2022-08-04] MEDS: ASPIRIN EC 81 MG TAB PO SCH (16:51)
[2022-08-04] MEDS: RIVAROXABAN 20 MG TABLET PO SCH (16:51)
--- NOTE | 2022-08-04 20:07 | CON ---
Date of Consultation: 08/04/2022 History Of Present Illness: Ms. Stevenson is 62 years old, has a history of severe pulmonary fibrosis , which was secondary to lymphoma radiation therapy and COVID pneumonia. Has had a history of atrial fibrillation as well. Comes in with shortness of breath and improved overnight. The patient is not on home oxygen. She got diuresed well. She does steroid and antibiotics and has improved. Past Medical History: As stated above. Allergies: SHE IS ALLERGIC TO CIPRO, PENICILLIN, AND PREDNISONE. Medications: Presently include digoxin, hydrochlorothiazide, Aldactone, Zestril, Xarelto, antibiotic s, aspirin, and steroids, as well as sotalol 80 mg 1 p.o. b.i.d. Physical Examination: Vital Signs: Stable. Afebrile. Sinus rhythm. HEENT: Negative. Neck: Supple with no bruit. Chest: Revealed expiratory wheezing. Cardiac: Normal. Abdomen: Benign. Extremities: Revealed no clubbing, cyanosis, or edema. Diagnostic Data: Showed white count 17,000. Echocardiogram which was done today is still pending re radha. We will check on her echocardiogram and I discussed the case further with Dr. Stallworth. No need to change her medical regimen at this point. Impression: 1.Pulmonary fibrosis secondary to COVID, radiation, and lymphoma. 2.Atrial fibrillation, paroxysmal, afebrile, sinus rhythm. . 3.Hypertension, which is well controlled. We will continue to follow. FRANNY/DAVID Voice ID: [id number] Report ID: [id number]
[2022-08-04] MEDS: MELATONIN 5 MG TABLET PO SCH (21:00)
[2022-08-04] MEDS: LORAZEPAM 0.5 MG TABLET PO SCH (21:10)
[2022-08-05] MEDS: CEFEPIME 2 GM in NA CHLORIDE 0.9% 100 ML IV SCH ×3 (00:27→15:41)
[2022-08-05] MEDS: METHYLPREDNISOLONE 40 MG INJ IV SCH ×3 (00:27→16:58)
[2022-08-05] MEDS: SOTALOL HCL 80 MG TAB PO SCH ×2 (06:03→18:24)
--- NOTE | 2022-08-05 07:19 | PN ---
Date of Progress Note: 08/04/2022 Chief Complaint: Hyponatremia. Subjective: Patient is admitted to the hospital for respiratory failure, acute on chronic. She is u ndergoing cardiac workup for congestive heart failure. She has acute on chronic respiratory failure, history of pulmonary fibrosis secondary to radiation and previous COVID infection. Prior to this ad mission, she was feeling sick and had nausea and vomiting. She was treated with Dr. Lacey for poss ible pneumonia when she developed progressively worse shortness of breath. She has multiple medical problems including history of atrial fibrillation, recurrent pneumonia, previous history of lymphoma, COVID infection, pulmonary fibrosis secondary to radiation, and COVID infection. Review of Systems: Denies chest pain, palpitation. Physical Examination: Lungs: Normal respiratory effort. Heart: S1, S2. Abdomen: Soft. Extremities: No edema. Impression And Plan: Hyponatremia secondary to high ADH state, complicated by HCTZ. Medications wer e reviewed. Patient was taken off HCTZ and she is on spironolactone. She can continue furosemide as needed for congestive heart failure and fluid overload. Sodium level has improved. Continue to mon itor electrolytes closely. Patient completed mild hydration with normal saline. IV normal saline wa s stopped because of shortness of breath. Continue Lasix for volume control as needed. EB/MODL Voice ID: [id number] Report ID: [id number]
[2022-08-05] MEDS ORDERED: LORazepam 2 MG/ML VIAL IV PRN (08:08)
--- NOTE | 2022-08-05 08:08 | P.PN ---
Subjective Date of Service: 08/05/22 Chief Complaint: Respiratory failure Patient was transferred to the ICU with respiratory distress she is on 100% FiO2 tachypneic very anxious Review of Systems General: Weakness Respiratory: Cough, Shortness of Breath Physical Examination - Vital Signs Temperature: 97.2 F Blood Pressure: 116/73 Pulse: 106 Respirations: 23 Pulse Ox (%): 90 - Physical Exam General: Alert, Moderate distress Respiratory: Crackles/rales Cardiovascular: No edema, Regular rate/rhythm, Normal S1 S2 Gastrointestinal: Normal bowel sounds, Soft and benign Assessment And Plan - Current Problems (Diagnosis) (1) Pulmonary fibrosis Current Visit: Yes Status: Acute Plan: Patient is 62 years of age with a history of pulmonary fibrosis admitted with worsening dyspnea worsening chest x-ray. We will check labs again today white count was declining she is very anxious with START on low-dose Precedex BiPAP blood cultures sputum cultures all negative
[2022-08-05] MEDS ORDERED: DEXMEDETOMIDINE HCL 200 MCG in NA CHLORIDE 0.9% 98 ML IV SCH (09:00)
--- NOTE | 2022-08-05 09:35 | P.PN ---
Date of Service: 08/05/22 Family requesting to initate transfer to [facility], Dr. Ortiz [phone].
[2022-08-05] MEDS ORDERED: ALBUMIN HUMAN 25% 50 ML IV ONE (09:39)
[2022-08-05] MEDS ORDERED: FUROSEMIDE 20 MG/ 2ML VIAL IV ONE (09:39)
--- NOTE | 2022-08-05 10:01 | RAD REPORT ---
EXAM DESCRIPTION: RAD - Chest Single View - 08/05/2022 9:45 am CLINICAL HISTORY: Pneumonia COMPARISON: Chest Single View dated 08/04/2022; Chest Single View dated 08/01/2022; Chest Pa And Lat ( 2 Views) dated 07/21/2022; Chest Single View dated 05/07/2020 FINDINGS: Lines: Pacemaker/ICD. Lungs: Coarse interstitial markings with bilateral chronic interstitial lung changes. Pleural: No significant pleural effusions or pneumothorax. Cardiac: Cardiomegaly . Mediastinum: Within normal limits. Bones: No acute fractures. Other: None IMPRESSION: Similar appearance compared with 08/04/2022 with findings suggesting chronic interstitia l lung disease. A superimposed pneumonia or exacerbation difficult to exclude radiographically.
--- NOTE | 2022-08-05 10:57 | ECHO ---
HEIGHT: 5 ft 3 in WEIGHT: 125 lb 0.034 oz DATE OF STUDY: 08/04/[address]: Enio Herrera MD 2-DIMENSIONAL: YES M.MODE: YES DOPPLER: YES COLOR FLOW: YES TDS: NO PORTABLE: YES DEFINITY: NO BUBBLE STUDY: NO DIAGNOSIS: CONGESTIVE HEART FAILURE CARDIAC HISTORY: CATHERIZATION: NO SURGERY: NO PROSTHETIC VALVE: NO PACEMAKER: YES MEASUREMENTS (cm) DIASTOLIC (NORMALS) SYSTOLIC (NORMALS) IVSd 0.7 (0.6-1.2) LA Diam 2.6 (1.9-4.0) LVEF 51% LVIDd 3.7 (3.5-5.7) LVIDs 2.8 (2.0-3.5) %FS 26% LVPWd 0.8 (0.6-1.2) Ao Diam 2.4 (2.0-3.7) 2 DIMENSIONAL ASSESSMENT: RIGHT ATRIUM: LEFT ATRIUM: RIGHT VENTRICLE: LEFT VENTRICLE: TRICUSPID VALVE: MITRAL VALVE: PULMONIC VALVE: AORTIC VALVE: PERICARDIAL EFFUSION: AORTIC ROOT: LEFT VENTRICULAR WALL MOTION: NORMAL. DOPPLER/COLOR FLOW: MILD TRICUSPID REGURGITATION - RIGHT VENTRICULAR SYSTOLIC PRESSURE 42mmHg. COMMENTS: TECHNICALLY DIFFICULT STUDY. GROSSLY NORMAL LEFT VENTRICULAR EJECTION FRACTION AND SIZE NO EFFUSION MILD PULMONARY HYPERTENSION 42mmHg. TECHNOLOGIST: SATHISH PARIS
[2022-08-05 11:07] LABS: Absolute Lymphocytes (CBC) 0.9 K/uL (0.7-4.9); Hematocrit 26.7 % (36.0-45.0); Lymphocytes % 5.2 % (15.3-44.8); MCV 82.7 fL (80-100); MPV 7.8 fL (7.6-11.3); RBC Red Blood Cell Count 3.23 M/uL (3.86-4.86)
[2022-08-05 11:18] LABS: Albumin 2.6 g/dL (3.4-5.0); Bilirubin Total 0.6 mg/dL (0.2-1.0); Magnesium 2.3 mg/dL (1.6-2.4); Potassium 3.9 mEq/L (3.5-5.1); Protein, Total 7.2 g/dL (6.4-8.2)
[2022-08-05] MEDS: DEXMEDETOMIDINE HCL 1,000 MCG in NA CHLORIDE 0.9% 490 ML IV SCH (12:43)
--- NOTE | 2022-08-05 12:49 | P.PN ---
Subjective Date of Service: 08/05/22 Chart is been reviewed. Patient is a 62-year-old female who has a history of pulmonary fibrosis secondary to chemotherapy for treatment of Hodgkin's lymphoma about 20 years ago. Patient also developed cardiomyopathy. She been monitored closely as an outpatient by her operating room nurse at [facility]. According to the 25% over lung was involved with pulmonary fibrosis after treatment. It has progressed to about 50%. She has had flareup from time to time but nothing as severe as the one that brought her into our emergency room. Patient had echocardiogram with an ejection fraction of 51% with mild pulmonary hypertension. Patient had been started on oxygen per nasal cannula; however, patient has progressed to Airvo at 100% FiO2 and barely keeping sats greater than 90%. Patient has been on IV steroids and IV antibiotics. Unfortunately, patient's condition is declining. She is very tachypneic and on further evaluation she is also in atrial fibrillation with rapid ventricular response. I spoke with cardiology and they recommended increasing the sotalol to 160 mg twice a day from 80 mg. Patient does have a pacemaker/defibrillator in place. We will go ahead and increase the dose as long as blood pressure is stable. We will go ahead and give a dose of digoxin IV as well. Initiated transfer to [facility]. Review of Systems 10-point ROS is otherwise unremarkable Physical Examination - Vital Signs Temperature: 97.2 F Blood Pressure: 96/58 Pulse: 101 Respirations: 32 Pulse Ox (%): 95 - Physical Exam General: Alert, In no apparent distress, Moderate distress HEENT: Atraumatic, PERRLA, EOMI Neck: Supple, JVD not distended Respiratory: Diminished, Expiratory wheezes Cardiovascular: Regular rate/rhythm, Normal S1 S2, Systolic murmur Gastrointestinal: Normal bowel sounds, Soft and benign, Non-distended, No tenderness Musculoskeletal: No clubbing, No tenderness, Swelling Neurological: Sensation intact, Cranial nerves 3-12 intact, Abnormal strength - Studies Medications List Reviewed: Yes Assessment & Plan - Problems (Diagnosis) (1) Atrial fibrillation with rapid ventricular response Current Visit: Yes Status: Acute (2) Pneumonia Current Visit: Yes Status: Acute Qualifiers: Pneumonia type: due to unspecified organism (3) Pulmonary fibrosis Current Visit: Yes Status: Acute (4) Acute respiratory failure due to severe acute respiratory syndrome coronavirus 2 (SARS-CoV-2) infection Current Visit: No Status: Acute (5) Iron deficiency Current Visit: Yes Status: Acute (6) Hyponatremia Current Visit: Yes Status: Acute (7) Anemia Current Visit: Yes Status: Acute - Plan Plan: 1. Continue with IV antibiotics 2. Awaiting sputum and blood culture 3. Repeat chest x-ray 4. CT scan of the chest 5. Appreciate pulmonary consultation 6. Continue with nebs as needed 7. O2 per protocol 8. Continue with gentle hydration 9. Repeat labs including CBC and renal function in a.m. 10. GI and DVT prophylaxis Discharge Plan: Home Plan to discharge in: Greater than 2 days - Advance Directives Does patient have a Living Will: No Does patient have a Durable POA for Healthcare: No - Code Status/Comfort Care Code Status Assessed: Yes Code Status: Full Code Critical Care: No Time Spent Managing PTS Care (In Minutes): 35
[2022-08-05] MEDS ORDERED: DIGOXIN 0.25 MG/ML AMP IV ONE (13:00)
--- NOTE | 2022-08-05 13:25 | P.PN ---
Subjective Date of Service: 08/05/22 Chief Complaint: Respiratory failure A 62-year-old female who has a history of pulmonary fibrosis secondary to chemotherapy for treatment of Hodgkin's lymphoma, cardiomyopathy. , admittd for SOB Patient had echocardiogram with an ejection fraction of 51% with mild pulmonary hypertension. today no overnight events corrected NA 131 f/u urine lytes will start Ure-NA Physical exam General: awajke and alert, looks chronically ill CHEST; Diminished air entry , tachypnea HEART : irregular rate and rhytem. Abd: soft, Nt Ext: no edema Skin : No rash #Hyponatremia corrected NA 131 likely due to poor solute intake F/U urine lyts TSh 0.9, cortisol 13 will start Ure-NA and lasix # Pulmonary fibrosis on high flow O2 and inhalers Steroids as per pulmonary #pulmonary HTN #AFib rate controlled #hyperglycemia SSI steroids tappering as per pulmonary Physical Examination - Vital Signs Temperature: 97.2 F Blood Pressure: 96/58 Pulse: 101 Respirations: 32 Pulse Ox (%): 95 - Studies Medications List Reviewed: Yes
--- NOTE | 2022-08-05 16:43 | PN ---
Ms. Stevenson is 62. Has a history of pulmonary fibrosis secondary to combination of COVID, radiation therapy and lymphoma. shortness of breath, rapid atrial fibrillation, rate of 130. Echo cardiogram showed mild pulmonary hypertension. Apparently, she was supposed to have an ablation by Eleazar Martinez; however, a left atrial thrombus was noted and the procedure was rescheduled till August. Sagar alysia to have that done. Hopefully, she will be going home very soon to have that done, but for now, I recommend to increase her sotalol to 160 mg. We can do twice a day if we have to. If that does no t work, we should consider amiodarone IV. I will discuss the case further with Dr. Rebolledo. We will co darshan to follow. FRANNY/DAVID Voice ID: [id number] Report ID: [id number]
[2022-08-05] MEDS: RIVAROXABAN 20 MG TABLET PO SCH (16:58)
[2022-08-05] MEDS: ASPIRIN EC 81 MG TAB PO SCH (16:58)
[2022-08-05] MEDS ORDERED: VANCOMYCIN 1.5 GM in NA CHLORIDE 0.9% 500 ML IVPB SCH (18:00)
[2022-08-05] MEDS ORDERED: SOTALOL HCL 80 MG TAB PO SCH (18:00)
[2022-08-05] MEDS: MELATONIN 5 MG TABLET PO SCH (21:00)
[2022-08-05] MEDS: LORAZEPAM 0.5 MG TABLET PO SCH (21:00)
[2022-08-06] MEDS: CEFEPIME 2 GM in NA CHLORIDE 0.9% 100 ML IV SCH ×3 (00:27→16:12)
[2022-08-06] MEDS: METHYLPREDNISOLONE 40 MG INJ IV SCH ×3 (00:28→21:00)
[2022-08-06 04:51] LABS: Hematocrit 26.9 % (36.0-45.0); Lymphocytes % 6.9 % (15.3-44.8); MCV 82.5 fL (80-100); MPV 7.6 fL (7.6-11.3); RBC Red Blood Cell Count 3.26 M/uL (3.86-4.86)
[2022-08-06 05:13] LABS: Albumin 2.5 g/dL (3.4-5.0); Bilirubin Total 0.7 mg/dL (0.2-1.0); C-Reactive Protein 80.9 mg/L (<3.00); Magnesium 2.5 mg/dL (1.6-2.4); Potassium 4.5 mEq/L (3.5-5.1); Protein, Total 7.2 g/dL (6.4-8.2)
[2022-08-06] MEDS: SOTALOL HCL 80 MG TAB PO SCH ×2 (06:09→17:41)
[2022-08-06 06:22] LABS: Blood Morphology Comment NOT SEEN (NOT SEEN); Platelet Estimate ADEQ; White Blood Cell Scan OK (OK)
[2022-08-06] MEDS: FUROSEMIDE 20 MG TABLET PO SCH (08:26)
[2022-08-06] MEDS: DIGOXIN 0.125 MG TABLET PO SCH (08:27)
--- NOTE | 2022-08-06 08:39 | RAD REPORT ---
EXAM DESCRIPTION: RAD - Chest Single View - 08/06/2022 5:31 am CLINICAL HISTORY: Pneumonia Chest pain. COMPARISON: Chest Single View dated 08/05/2022; Chest Single View dated 08/04/2022; Chest Single View dated 08/01/2022; Chest Pa And Lat (2 Views) dated 07/21/2022 FINDINGS: Portable technique limits examination quality. The lungs are underinflated. There is patchy airspace opacity bilaterally without significant change since comparative study. The heart is moderately enlarged. Multi lead pacer/ defibrillator device pre sent. IMPRESSION: Patchy airspace opacity in both lungs, greater on the right, appears unchanged when acco unting for differences in technique.
[2022-08-06] MEDS: VANCOMYCIN 1.25 GM in NA CHLORIDE 0.9% 250 ML IVPB SCH ×2 (08:58→21:04)
[2022-08-06] MEDS ORDERED: UREA 15 GM POWDER PACKET PO SCH (09:00)
--- NOTE | 2022-08-06 09:40 | PN ---
Date of Progress Note: 08/06/2022 Ms. Stevenson has been followed up for atrial fibrillation that is paroxysmal. She is a patient of Dr Arian Martinez. Was planning to have an ablation, but she was found to have left atrial thrombus and the procedure was postponed until August. She is in here with shortness of breath from pulmonary fibros is. She is improving slowly, but yesterday had gone to rapid atrial fibrillation. We increased her sotalol to 160 b.i.d. Her digoxin was restarted today. Now, she is in a paced rhythm with a rate of 60. We will continue present management for now. She will follow up with Dr. Martinez down the road. FRANNY/DAVID Voice ID: [id number] Report ID: [id number]
[2022-08-06] MEDS: DEXMEDETOMIDINE HCL 1,000 MCG in NA CHLORIDE 0.9% 490 ML IV SCH (10:02)
[2022-08-06] MEDS ORDERED: ALBUMIN HUMAN 25% 100 ML IV ONE (11:15)
--- NOTE | 2022-08-06 12:33 | P.PN ---
Subjective Date of Service: 08/06/22 Chief Complaint: Respiratory failure Patient is less anxious still on high flow 85% FiO2 on dexmedetomidine Review of Systems General: Weakness Respiratory: Shortness of Breath Physical Examination - Vital Signs Temperature: 97.4 F Blood Pressure: 102/54 Pulse: 81 Respirations: 13 Pulse Ox (%): 95 - Physical Exam General: Alert, Moderate distress Respiratory: Crackles/rales Cardiovascular: No edema, Regular rate/rhythm, Normal S1 S2 - Studies Medications List Reviewed: Yes Assessment And Plan - Current Problems (Diagnosis) (1) Pulmonary fibrosis Current Visit: Yes Status: Acute Plan: Patient is 62 years of age admitted with an exacerbation of her pulmonary fibrosis patient seems to have stabilized on dexmedetomidine White count is declining continue with present medication recommend a high flow alternating with BiPAP cultures are all negative no change in present medication continue with steroid currently can reduce to twice daily dose
--- NOTE | 2022-08-06 12:58 | PN ---
Date of Progress Note: 08/06/2022 Subjective: The patient was admitted with acute hyponatremia. The patient had interstitial lung disease. Physical Examination: Vital Signs: Blood pressure 102/54, pulse of 81, afebrile. The patient had urine output of 2500, positive of 900. Chest: Crackles bilateral, more rales. Heart: S1, S2 regular. Abdomen: Soft, nontender. Extremities: No edema. Neuro: Alert. No focality. Laboratory Data: Hemoglobin of 9, WBC 13.9. Sodium 131, potassium 4.5, bicarb 31, BUN 31, creatinine 0.5, calcium 9.2. BNP 1300. Uric acid 3.1. Chest x- ray; interstitial infiltrations bilateral. Current Medications: The patient on include cefepime 2 g every 8 hours, vancomycin, rosuvastatin, digoxin, sotalol, Lasix at 20 daily. Assessment And Plan: 1. Hyponatremia, mostly secondary to dilutional/inappropriate ADH secondary to interstitial lung disease. I am going to continue the patient on Lasix. The patient's sodium has been improved without taking the urea. I can hold it and we will continue on the Lasix. 2. Hypertension, controlled, optimal. Continue current treatment. 3. Hypokalemia, status post supplement, resolved. 4. Interstitial lung disease. We will follow up with primary. Time spent examining the patient [id number], reviewing data, lab and radiology, placing order, discussing the case with the patient, discussing the case with the steam room attendant including nurse more than 35 minutes LEIDY Voice ID: [id number] Report ID: [id number] AVERY
[2022-08-06] MEDS: ASPIRIN EC 81 MG TAB PO SCH (16:12)
[2022-08-06] MEDS: RIVAROXABAN 20 MG TABLET PO SCH (16:12)
[2022-08-06] MEDS ORDERED: RSI MEDICATION KIT IV ONE (18:37)
[2022-08-06] MEDS ORDERED: NA CHLORIDE 0.9% 1,000 ML ONE (18:38)
[2022-08-06] MEDS ORDERED: MIDAZOLAM HCL 2 MG/2 ML INJ ONE ×2 (18:45→18:51)
[2022-08-06] MEDS ORDERED: ATROPINE SULFATE 1 MG/ML INJ IM ONE (18:53)
[2022-08-06] MEDS ORDERED: ETOMIDATE 20 MG/10 ML VIAL IV ONE (18:53)
[2022-08-06] MEDS ORDERED: SUCCINYLCHOLINE 20 MG/ML (10 ML) IV ONE (18:53)
[2022-08-06] MEDS ORDERED: FENTANYL CITR 100 MCG/2 ML IV ONE (18:53)
[2022-08-06] MEDS ORDERED: CISATRACURIUM INJECTION 2 MG/ML (10 ML Vial) IV ONE (18:55)
[2022-08-06] MEDS ORDERED: CISATRACURIUM BESYLATE 40 MG in NA CHLORIDE 0.9% 80 ML IV PRN (18:56)
[2022-08-06] MEDS ORDERED: FENTANYL CITR 100 MCG/2 ML ONE (19:00)
[2022-08-06 19:20] LABS: Arterial Blood Carboxyhemoglob 1.3 % (0-1.5); Blood Gas Oxyhemoglobin 63.1 % (94-97); Blood O2 Saturation 64.7 % (92-98.5)
--- NOTE | 2022-08-06 19:31 | RAD REPORT ---
EXAM DESCRIPTION: RAD - Chest Single View - 08/06/2022 7:22 pm CLINICAL HISTORY: Intubation COMPARISON: Chest Single View dated 08/06/2022; Chest Single View dated 08/05/2022; Chest Single View dated 08/04/2022; Chest Single View dated 08/01/2022 FINDINGS: Interval intubation. The endotracheal tube tip terminates at the aortic arch in satisfacto ry position. Slight improved lung volumes. The remainder of the exam is unchanged. An NG tube is also been placed with tip overlying the stomach. IMPRESSION: 1. ET tube at the level of the aortic arch in satisfactory position. 2. NG tube tip overlies the stomach
[2022-08-06] MEDS ORDERED: METHYLPRED NA SUC 1,000 MG in NA CHLORIDE 0.9% 100 ML IV ONE (19:55)
[2022-08-06] MEDS: NOREPINEPHRINE 8 MG in D5W 250 ML IV SCH (20:25)
[2022-08-06] MEDS ORDERED: NA CHLORIDE 0.9% 100 ML ONE (20:25)
[2022-08-06] MEDS: LORAZEPAM 0.5 MG TABLET PO SCH (20:58)
[2022-08-06] MEDS: MELATONIN 5 MG TABLET PO SCH (20:58)
[2022-08-06] MEDS: Mupirocin NASAL 2 APPL/1 GM TUBE NAS SCH (21:03)
[2022-08-06 21:05] LABS: Arterial Blood Carboxyhemoglob 0.7 % (0-1.5); Blood Gas Oxyhemoglobin 50.1 % (94-97); Blood O2 Saturation 51.1 % (92-98.5)
[2022-08-06] MEDS ORDERED: CISATRACURIUM INJECTION 2 MG/ML (10 ML Vial) IV PRN (21:26)
[2022-08-06] MEDS ORDERED: LORazepam 2 MG/ML VIAL IV PRN (21:51)
[2022-08-06] MEDS: FENTANYL CITR 100 MCG/2 ML IV PRN (22:02)
[2022-08-06 23:11] LABS: Arterial Blood Carboxyhemoglob 1.4 % (0-1.5); Blood Gas Oxyhemoglobin 81.4 % (94-97); Blood O2 Saturation 83.7 % (92-98.5)
[2022-08-06 23:45] LABS: Arterial Blood Carboxyhemoglob 1.3 % (0-1.5); Blood Gas Oxyhemoglobin 78.1 % (94-97); Blood O2 Saturation 80.2 % (92-98.5)
[2022-08-07] MEDS: FENTANYL CITR 100 MCG/2 ML IV PRN ×2 (00:11→12:33)
[2022-08-07] MEDS: CEFEPIME 2 GM in NA CHLORIDE 0.9% 100 ML IV SCH ×2 (00:32→08:00)
[2022-08-07] MEDS: CISATRACURIUM BESYLATE 40 MG in NA CHLORIDE 0.9% 80 ML IV PRN ×2 (01:41→05:29)
[2022-08-07] MEDS: DEXMEDETOMIDINE HCL 1,000 MCG in NA CHLORIDE 0.9% 490 ML IV SCH (02:00)
[2022-08-07] MEDS: NOREPINEPHRINE 8 MG in D5W 250 ML IV SCH ×3 (02:31→09:15)
[2022-08-07] MEDS: SOTALOL HCL 80 MG TAB PO SCH ×2 (04:58→16:26)
[2022-08-07 04:59] VITALS: O2SAT 80
[2022-08-07] MEDS ORDERED: ALBUMIN HUMAN 25% 100 ML IV ONE (05:07)
[2022-08-07] MEDS ORDERED: NA CHLORIDE 0.9% 1,000 ML IV ONE (05:07)
--- NOTE | 2022-08-07 05:26 | P.PN ---
Date of Service: 08/06/22 Subjective Patient deteriorated rapidly. Patient went into respiratory distress. Patient required intubation. After intubation patient with a large amount of blood into the ET tube. Emergency room physician, Dr. [facility] assisted in intubation and central line placement. Patient was started on vasopressor. Patient was severe hypercapnic respiratory failure with a pH of 7.0. Vent settings per pulmonary. Her prognosis remains very poor. Attempt made to transfer to [facility]. Patient was on the waiting list. Review of Systems Unable to obtain Physical Examination - Vital Signs Reviewed - Physical Exam General: Intubated and sedated Respiratory: Diminished, Expiratory wheezes Cardiovascular: Regular rate/rhythm, Normal S1 S2, Systolic murmur Gastrointestinal: Normal bowel sounds, Soft and benign, Non-distended, No tenderness Musculoskeletal: No clubbing, No tenderness, Swelling Neurological: On paralytics Assessment & Plan - Problems (Diagnosis) (1) Atrial fibrillation with rapid ventricular response Current Visit: Yes Status: Acute (2) UIP with severe pulmonary fibrosis; hypercapnic respiratory failure Current Visit: Yes Status: Acute Pneumonia type: due to unspecified organism (3) Hemoptysis Current Visit: Yes Status: Acute (4) Chronic respiratory failure due to severe acute respiratory syndrome coronavirus 2 (SARS-CoV-2) infection Current Visit: No Status: Acute (5) Iron deficiency anemia Current Visit: Yes Status: Acute (6) Hyponatremia Current Visit: Yes Status: Acute - Plan Continue with plan of care as mentioned below: 1. Continue with current ventilator support 2. Awaiting sputum and blood culture; continue with IV antibiotic therapy 3. IV steroids 4. CT scan of the chest with severe pulmonary fibrosis and usual interstitial pneumonia. 5. Appreciate pulmonary consultation 6. Continue with nebs as needed 7. Continue vent settings per pulmonary 8. Continue with gentle hydration 9. Repeat labs 10. Hold Xarelto for hemoptysis 11. DVT prophylaxis with SCDs Discharge Plan: Transfer to [facility] Plan to discharge in: Greater than 2 days - Advance Directives Does patient have a Living Will: No Does patient have a Durable POA for Healthcare: No - Code Status/Comfort Care Code Status Assessed: Yes Code Status: Full Code Critical Care: No Time Spent Managing PTS Care (In Minutes): 70
[2022-08-07 05:43] LABS: Blood O2 Saturation 79.5 % (92-98.5)
[2022-08-07 05:44] LABS: Arterial Blood Carboxyhemoglob 1.7 % (0-1.5); Blood Gas Oxyhemoglobin 77.1 % (94-97)
[2022-08-07] MEDS ORDERED: ALBUMIN HUMAN 25% 50 ML IV ONE (05:52)
[2022-08-07 07:43] LABS: Absolute Lymphocytes (CBC) 0.9 K/uL (0.7-4.9); Hematocrit 27.6 % (36.0-45.0); Lymphocytes % 1.7 % (15.3-44.8); MCV 87.1 fL (80-100); MPV 8.2 fL (7.6-11.3); RBC Red Blood Cell Count 3.16 M/uL (3.86-4.86)
[2022-08-07] MEDS ORDERED: LIDOCAINE 1% 20 ML MDV ONE (08:26)
--- NOTE | 2022-08-07 08:27 | P.PN ---
Subjective Date of Service: 08/06/22 Chief Complaint: Respiratory failure patient on a ventilator Patient's condition deteriorated around 6 to 7 PM on 06 August patient was placed on ventilator respiratory therapist has a difficult time ventilating her came around 8:00 COVID adjusted the ventilator she was very hypercapnic not ventilating tried different mode patient was also on Levophed unresponsive Review of Systems is unable to be obtained Physical Examination - Vital Signs Temperature: 96.2 F Blood Pressure: 116/63 Pulse: 112 Respirations: 25 Pulse Ox (%): 93 - Physical Exam General: Unresponsive Respiratory: Diminished Cardiovascular: No edema, Regular rate/rhythm, Normal S1 S2 - Studies Microbiology Data (last 24 hrs): 08/01/22 14:22 Blood - Blood Aerobic Blood Culture - Final No growth in 5 days. 08/01/22 14:22 Blood - Blood Anaerobic Blood Culture - Final No growth in 5 days. 08/01/22 13:06 Blood - Blood Aerobic Blood Culture - Final No growth in 5 days. 08/01/22 13:06 Blood - Blood Anaerobic Blood Culture - Final No growth in 5 days. Medications List Reviewed: Yes Assessment And Plan - Current Problems (Diagnosis) (1) Pulmonary fibrosis Current Visit: Yes Status: Acute Plan: Patient is 62 years of age admitted with an exacerbation of her pulmonary fibrosis patient seems to have stabilized on dexmedetomidine White count is declining continue with present medication recommend a high flow alternating with BiPAP cultures are all negative no change in present medication continue with steroid currently can reduce to twice daily dose (2) Respiratory failure Current Visit: Yes Status: Acute Plan: Patient developed worsening respiratory status was intubated at difficult time ventilating her tried different modes including volume pressure control she required very high peak pressures to ventilate her plateau pressure was ADPKD chest x-ray diffuse changes patient started patient is on dexmedetomidine started on paralytic agents Ativan fentanyl chest x-ray after intubation shows diffuse bilateral changes Qualifiers: Chronicity: acute
--- NOTE | 2022-08-07 08:30 | P.PN ---
Subjective Date of Service: 08/07/22 Chief Complaint: Respiratory failure patient on a ventilator Patient has developed bilateral apical pneumothoraces oxygen saturation is low Review of Systems is unable to be obtained Physical Examination - Vital Signs Temperature: 96.2 F Blood Pressure: 116/63 Pulse: 112 Respirations: 25 Pulse Ox (%): 93 - Physical Exam General: Unresponsive Respiratory: Clear to auscultation bilaterally, Diminished - Studies Microbiology Data (last 24 hrs): 08/01/22 14:22 Blood - Blood Aerobic Blood Culture - Final No growth in 5 days. 08/01/22 14:22 Blood - Blood Anaerobic Blood Culture - Final No growth in 5 days. 08/01/22 13:06 Blood - Blood Aerobic Blood Culture - Final No growth in 5 days. 08/01/22 13:06 Blood - Blood Anaerobic Blood Culture - Final No growth in 5 days. Medications List Reviewed: Yes Assessment And Plan - Current Problems (Diagnosis) (1) Pulmonary fibrosis Current Visit: Yes Status: Acute Plan: Patient is 62 years of age admitted with an exacerbation of her pulmonary fibrosis patient seems to have stabilized on dexmedetomidine White count is declining continue with present medication recommend a high flow alternating with BiPAP cultures are all negative no change in present medication continue with steroid currently can reduce to twice daily dose (2) Respiratory failure Current Visit: Yes Status: Acute Plan: Patient now has bilateral apical pneumothoraces will need emergent bilateral chest tubes General surgery has been consulted renal function is slightly worse renal function is worse we will repeat basic metabolic profile Qualifiers: Chronicity: acute
[2022-08-07 08:52] LABS: Blood Morphology Comment NOT SEEN (NOT SEEN); Platelet Estimate ADEQ
[2022-08-07] MEDS: DIGOXIN 0.125 MG TABLET PO SCH (09:00)
[2022-08-07] MEDS: FUROSEMIDE 20 MG TABLET PO SCH (09:00)
[2022-08-07] MEDS: VANCOMYCIN 1.25 GM in NA CHLORIDE 0.9% 250 ML IVPB SCH (09:00)
[2022-08-07] MEDS ORDERED: ALBUTEROL 2.5 MG/3 ML NEB SOL NEB ONE (10:00)
[2022-08-07] MEDS ORDERED: D50W 25 GM/50 ML SYRINGE IV ONE ×2 (10:08→10:30)
--- NOTE | 2022-08-07 10:08 | RAD REPORT ---
EXAM DESCRIPTION: RAD - Chest Single View - 08/07/2022 10:02 am CLINICAL HISTORY: S/P bilateral chest tubes Chest pain. COMPARISON: <Comparisons> FINDINGS: Portable technique limits examination quality. Bilateral chest tubes have been placed. Right-sided chest tube is directed cephalad with moderate rig ht pneumothorax present. Left-sided chest tube is directed caudad with small size pneumothorax noted. Moderate bilateral consolidated lung is again seen unchanged.ET tube tip is at the level of superior aortic arch. Enteric tube has its tip in the stomach. Dual lead pacer/defibrillator device is presen t.
[2022-08-07] MEDS ORDERED: D50W 25 GM/50 ML SYRINGE IV PRN ×2 (10:09→15:45)
[2022-08-07] MEDS ORDERED: GLUCAGON 1 MG/VIAL IM PRN ×2 (10:09→15:45)
[2022-08-07] MEDS ORDERED: CALCIUM GLUCONATE 1 GM IVPB 1 GM/50 ML BAG IV ONE (10:09)
[2022-08-07] MEDS ORDERED: INSULIN -REGULAR HUMAN 50 UNIT/0.5 ML ML IV ONE (10:09)
[2022-08-07] MEDS ORDERED: D10W 125 ML IV PRN (10:20)
[2022-08-07] MEDS ORDERED: D10W 250 ML IV ONE (10:20)
--- NOTE | 2022-08-07 10:43 | RAD REPORT ---
EXAM DESCRIPTION: ADDENDUM #1 THIS REPORT CONTAINS FINDINGS THAT MAY BE CRITICAL TO PATIENT CARE: otification on the phone occurr ed on 08/07/2022 6:01 AM CDT. I discussed the findings with Nurse Mary Ann Cardoso who agreed to kevin e the result on the phone on behalf of the physician, and acknowledges their critical nature. Electronically signed by: Osorio Pimentel 08/07/2022 6:12 AM CDT End of Addendum EXAM DESCRIPTION: Chest Single View CLINICAL HISTORY: Subcutaneous emphysema/Rule out pneumothorax COMPARISON: 08/06/2022 FINDINGS: Single frontal view of the chest. Tubes and lines: NG tube with tip in stomach. Endotracheal tube with tip 3 cm above the carol ann. Left chest wall multilead generator. Leads overlie the chest. Cardiomediastinal silhouette: Stable Lungs: Small biapical pneumothoraces. Small pleural effusions. Diffuse coarse bilateral interstitial and airspace opacities. Low lung volumes. Bones: Stable. Upper abdomen: Stable. IMPRESSION: 1. Small biapical pneumothoraces. 2. Stable diffuse bilateral interstitial and airspace opacities. Electronically signed by: Osorio Pimentel 08/07/2022 5:54 AM CDT Due to temporary technical issues with the PACS/Fluency reporting system, reports are being signed by the in house radiologists without review as a courtesy to insure prompt reporting. The interpreting radiologist is fully responsible for the content of the report.
[2022-08-07 10:50] LABS: Protime INR 6.56
[2022-08-07] MEDS: METHYLPREDNISOLONE 40 MG INJ IV SCH (10:53)
[2022-08-07] MEDS: Mupirocin NASAL 2 APPL/1 GM TUBE NAS SCH (10:53)
[2022-08-07] MEDS ORDERED: VITAMIN K (ADULT) 10 MG/ML IVP ONE (10:57)
[2022-08-07 11:11] LABS: Potassium 6.5 mEq/L (3.5-5.1)
--- NOTE | 2022-08-07 11:34 | CON ---
Date of Consultation: 08/07/2022 Reason For Consultation: The patient needs bilateral chest tubes. History Of Present Illness: The patient is a 62-year-old female with a history of pulmonary fibrosis , who was admitted with pneumonia and respiratory failure and has been intubated, and chest x-ray drew ws bilateral pneumothorax worse on the right and I was asked to place a chest tube in and the patient is on positive pressure ventilation. She is unable to provide any review of systems. The family is present. The risks, benefits, and alternatives were explained to the patient's family and they want us to proceed with placement of chest tube. Review of Systems: Otherwise unremarkable. Past Medical History: Significant for hypertension, systolic CHF, history of defibrillator, history of cardiac toxicity secondary to chemo, Hodgkin lymphoma. Past Surgical History: Significant for ICD placement, port placement, hernia repair, cholecystectomy , retina surgery. Allergies: INCLUDE CIPRO, PENICILLIN, PREDNISONE. Social History: The patient does not smoke. Drinks occasionally. Family History: Noncontributory. Physical Examination: Vital Signs: Currently are significant for pulse rate of 109, respiratory rate of 23, blood pressure 99/28, O2 saturation was in the low 80s and 70s. Her FiO2 is 100. General: She is intubated and unresponsive. There are 2 medications. Head and Neck: No masses. Chest: Diminished breath sounds. Heart: S1 and S2. Abdomen: Soft. Extremities: Neurovascularly intact. Neuro: Nonfocal. Diagnostic Data: Per HPI. Assessment: Bilateral pneumothorax. The patient is on positive pressure ventilation. Recommendations: We will go ahead and place bilateral chest tubes. Family understands risks, benefi ts, and alternatives and agrees to procedure. Procedure Note: The patient was prepped and draped in the usual sterile fashion. Lidocaine 1% infil trated locally. A 15-blade was used to make a 1 cm incision in the midaxillary line at the fourth in tercostal space on the right side first and then utilizing standard technique, a 28-Lithuanian chest tube placed into the pleural cavity with gush of air exiting first and minimal serous fluid present. The n, #1 Vicryl suture used to attach the chest tube to the chest wall and then occlusive dressing appli ed in the standard fashion. The same procedure occurred on the left side without any complications. Chest x-rays reveals chest tube to be in the proper place. The patient tolerated the procedure in s table condition. /MODL Voice ID: [id number] Report ID: [id number]
[2022-08-07] MEDS ORDERED: DEXTROSE 5% IV SCH (12:00)
[2022-08-07] MEDS ORDERED: NOREPINEPHRINE IV SCH ×2 (12:00→14:00)
[2022-08-07] MEDS ORDERED: WATER IV SCH (12:00)
[2022-08-07] MEDS ORDERED: CEFEPIME 2 GM in NA CHLORIDE 0.9% 100 ML IV SCH (12:00)
--- NOTE | 2022-08-07 12:10 | PN ---
Date of Progress Note: 08/07/2022 Subjective: The patient was admitted to the hospital with respiratory failure and found to have hyponatremia. The patient had advanced lung fibrosis. Yesterday, the patient had a crash down with bilateral pneumothorax, severe respiratory acidosis and hypoxemia. The patient intubated. Chest tube was placed. The patient was placed on pressors. The patient started being oliguric over the night. Physical Examination: Vital Signs: When I saw the patient; blood pressure 130/64, pulse of 73. The patient had only 175 of urine in the last 12 hours. Chest: Chest tubes bilateral. Could not appreciate any crackles. Heart: S1, S2. Systolic murmur. Abdomen: Soft, nontender. Extremity: No edema. Neuro: The patient is sedated. Laboratory Data: WBC 49.5, hemoglobin 8.5, platelet of 336. Sodium 132, potassium 6, bicarb 29, BUN 39, creatinine 1.7, GFR of 32, calcium of 8. ABG; pH 7.04, CO2 104, O2 63, base excess -3. Current Medications: The patient on include; 1. Cefepime. 2. Vancomycin. 3. Albuterol. 4. tylenol 5. Levophed. 6. Digoxin. 7. Sotalol 80 b.i.d. 8. Lasix 20 b.i.d. 9. Insulin. Assessment And Plan: 1. Acute kidney injury, oliguric, secondary to poor perfusion, ATN, complicated with hyperkalemia. I had long discussion with the patient and family by bedside that with the current condition for the patient, the patient will need possible in the next 12 hours renal replacement therapy given her current condition and marginal low blood pressure. Family on agreement. The patient overall poor prognosis. We will go ahead and repeat chemistry if continued to show persistent in the hyperkalemia. As I mentioned, the patient is going to need to be initiated on renal replacement therapy and we will follow up. 2. Hyperkalemia secondary to renal failure I am going to go ahead and get albuterol, D50 with insulin and calcium gluconate. We discussed with the patient's family the need for dialysis if kidney function continued to decline or hyperkalemia persists. Family on agreement. We will follow up. We will repeat the lab data for the hyperkalemia. We will replace catheter and initiate renal replacement therapy. 3. Bilateral pneumothorax. Chest tube. Follow up Pulmonary. 4. Acidosis secondary to hypercapnic respiratory acidosis. We will follow up with Pulmonary. 5. Pulmonary fibrosis with respiratory failure as above. 6. Hyponatremia secondary to inappropriate ADH response, resolved. Will be also corrected with dialysis if it is initiated. 7. Shock mostly secondary to bilateral pneumothorax. The patient on pressor. Given the multiple comorbid conditions, I am going to go ahead and send for cortisol, send for cardiac enzyme. The patient not on any stage or stability to go under any CT angio to evaluate if there is any PE. We will do cardiac enzyme and EKG, and we will follow up. Continue pressor. Follow up with ICU. Time spent examining the patient [id number], reviewing data, lab and radiology, placing order, discussing the case with the patient, discussing the case with the steam cleaner including nurse more than 35 minutes LEIDY Voice ID: [id number] Report ID: [id number] AVERY
--- NOTE | 2022-08-07 12:19 | EKG ---
Test Date: 2022-08-07 Test Time: 10:21:26 Mechanical Specialist: HINA MEASUREMENT RESULTS: Intervals: Rate: 80 MI: 150 QRSD: 104 QT: 350 QTc: 403 [place]: P: 50 MI: 150 QRS: 97 T: 92 INTERPRETIVE STATEMENTS: Demand pacemaker, interpretation is based on intrinsic rhythm Sinus rhythm with fusion complexes Low voltage QRS Lateral infarct, age undetermined Abnormal ECG Compared to ECG 08/01/2022 12:56:47 Fusion complex(es) now present Low QRS voltage now present Myocardial infarct finding now present Electronically Signed On 08-07-22 12:18:47 CDT by Enio Herrera
--- NOTE | 2022-08-07 13:40 | PN ---
Date of Progress Note: 08/07/2022 Ms. Stevenson is a patient who has chronic paroxysmal atrial fibrillation. She was supposed to have a n ablation by Dr. Martinez, but this was canceled because of left atrial thrombus. 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 Has a pacemaker. Has had rapid atrial fibrillati on for which we treated with sotalol. Now, patient is on digoxin, Lasix, Levophed, antibiotics. Her sotalol and Xarelto were held. Last hemoglobin was 9. She is in sinus tachycardia. She is on [facility] anical ventilation. Last blood gases 131 PO2, PCO2 of 72, and pH 7.98. Pulmonary is following. I a gree with present regimen. No change in therapy. FRANNY/DAVID Voice ID: [id number] Report ID: [id number]
[2022-08-07] MEDS ORDERED: D5W IV SCH (14:00)
[2022-08-07] MEDS: D5W IV SCH ×2 (14:13→18:28)
[2022-08-07] MEDS: NOREPINEPHRINE IV SCH ×2 (14:13→18:28)
[2022-08-07 15:14] LABS: Arterial Blood Carboxyhemoglob 1.5 % (0-1.5); Blood Gas Oxyhemoglobin 84.4 % (94-97); Blood O2 Saturation 87.1 % (92-98.5)
[2022-08-07 15:43] LABS: Potassium 7.3 mEq/L (3.5-5.1)
[2022-08-07] MEDS ORDERED: INSULIN -REGULAR HUMAN 100 UNIT in NA CHLORIDE 0.9% 100 ML IV SCH (16:00)
[2022-08-07] MEDS: ASPIRIN EC 81 MG TAB PO SCH (16:22)
[2022-08-07] MEDS ORDERED: CALCIUM GLUCONATE 1 GM IVPB 2 GM/100 ML BAG IV ONE (16:45)
[2022-08-07] MEDS ORDERED: VASOPRESSIN 80 UNIT in NA CHLORIDE 0.9% 250 ML IV SCH (17:00)
[2022-08-07] MEDS ORDERED: DOPAMINE/D5W 400 MG/250 ML BAG IV SCH (18:15)
[2022-08-07] MEDS ORDERED: DOPAMINE/D5W 400 MG/250 ML BAG IV ONE (18:22)
[2022-08-07 18:37] VITALS: BP 72/54; TEMP 97.1
--- NOTE | 2022-08-07 20:43 | P.DS ---
Discharge Date: 08/07/22 Disposition: Discharge Condition: Reason for Admission: Respiratory failure patient on a ventilator - Problems (1) Atrial fibrillation with rapid ventricular response Current Visit: Yes Status: Acute (2) Pneumonia Current Visit: Yes Status: Acute Qualifiers: Pneumonia type: due to unspecified organism (3) Pulmonary fibrosis Current Visit: Yes Status: Acute (4) Acute respiratory failure due to severe acute respiratory syndrome coronavirus 2 (SARS-CoV-2) infection Current Visit: No Status: Acute (5) Iron deficiency Current Visit: Yes Status: Acute (6) Hyponatremia Current Visit: Yes Status: Acute (7) Anemia Current Visit: Yes Status: Acute Brief History of Present Illness: Patient is 62 year-old female, who has a 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 She was treated with doxycycline, and she was not feeling better. She has been complaining of worsening dyspnea. She came into the ER for further evaluation. Hospital Course: Unfortunately, patient declined during hospitalization. Laboratory Data at Discharge: WBC 49.50 thou/uL (4.3-10.9) H 08/07/22 07:25 Hgb 8.5 g/dL (12.0-15.0) L 08/07/22 07:25 Hct 27.6 % (36.0-45.0) L 08/07/22 07:25 Plt Count 336 thou/uL (152-406) 08/07/22 07:25 PT 72.2 SECONDS (9.5-12.5) H 08/07/22 10:17 INR 6.56 H* 08/07/22 10:17 Sodium 126 mEq/L (136-145) L 08/07/22 14:22 Potassium 7.3 mEq/L (3.5-5.1) H* 08/07/22 14:22 BUN 48 mg/dL (7-18) H 08/07/22 14:22 Creatinine 2.76 mg/dL (0.55-1.02) H 08/07/22 14:22 Glucose 406 mg/dL (74-106) H* 08/07/22 14:22 Uric Acid 3.1 mg/dL (2.6-6.0) 08/02/22 20:20 Phosphorus 2.3 mg/dL (2.5-4.9) L 08/02/22 20:20 Magnesium 2.5 mg/dL (1.6-2.4) H 08/06/22 04:36 Total Bilirubin 0.7 mg/dL (0.2-1.0) 08/06/22 04:36 AST 20 U/L (15-37) 08/06/22 04:36 ALT 35 U/L (13-56) 08/06/22 04:36 Alkaline Phosphatase 81 U/L (45-117) 08/06/22 04:36 Home Medications: Cyanocobalamin (Vitamin B-12) [Vitamin B-12] 1,000 mcg PO DAILY 04/27/20 Digoxin 125 mcg PO DAILY 04/27/20 Ascorbic Acid [Vitamin C*] 500 mg PO TID #90 tablet 05/08/20 Melatonin 5 mg PO BEDTIME #30 tablet 05/08/20 Thiamine HCl 100 mg PO DAILY #30 tablet 05/08/20 Zinc Sulfate [Zinc Sulfate*] 220 mg PO DAILY #30 cap 05/08/20 Calcium Carbonate/Vitamin D3 [Caltrate 600 Plus D3 Tablet] 1 tab PO DAILY 08/01/22 Lisinopril [Zestril] 1 tab PO DAILY 08/01/22 Rivaroxaban [Xarelto*] 1 tab PO DAILY 08/01/22 Sotalol HCl [Betapace*] 1 tab PO BID 08/01/22 Spironolactone 1 tab PO DAILY 08/01/22 hydroCHLOROthiazide [Hydrochlorothiazide] 1 tab PO DAILY 08/01/22 Physician Discharge Instructions: Patient and body was released to the home. Time spent managing pt's care (in minutes): 35
[2022-08-08] MEDS ORDERED: VANCOMYCIN 1.25 GM in NA CHLORIDE 0.9% 250 ML IVPB SCH (09:00)
[2022-08-09] MEDS ORDERED: VANCOMYCIN 1 GM in NA CHLORIDE 0.9% 250 ML IVPB SCH (09:00)
== END 2022-08-07 19:13 | disposition expired | DRG 871 ==
LOC: ER 12:11 → ERHOLD 14:59 → 2ND 22:38 → 3RD-ICU 08-04 20:36
PROVIDERS: ADMIT Internal Medicine Sleep Medicine; ATTEND Hospitalist
PROC: 5A09457 Assistance with Respiratory Ventilation, 24-96 Consecutive Hours, Continuous Positive Airway Pressure (ICD-10-PCS; 2022-08-04)
PROC: 5A1935Z Respiratory Ventilation, Less than 24 Consecutive Hours (ICD-10-PCS; principal; 2022-08-06)
PROC: 0BH17EZ Insertion of Endotracheal Airway into Trachea, Via Natural or Artificial Opening (ICD-10-PCS; 2022-08-06)
PROC: 0W9B30Z Drainage of Left Pleural Cavity with Drainage Device, Percutaneous Approach (ICD-10-PCS; 2022-08-07)
PROC: 0W9930Z Drainage of Right Pleural Cavity with Drainage Device, Percutaneous Approach (ICD-10-PCS; 2022-08-07)
DX: A41.9 Sepsis, unspecified organism (principal); J18.9 Pneumonia, unspecified organism; R65.21 Severe sepsis with septic shock; J80 Acute respiratory distress syndrome; N17.0 Acute kidney failure with tubular necrosis; J93.9 Pneumothorax, unspecified; I50.22 Chronic systolic (congestive) heart failure; E87.1 Hypo-osmolality and hyponatremia; J70.1 Chronic and other pulmonary manifestations due to radiation; R04.2 Hemoptysis; E87.20 Acidosis, unspecified; I11.0 Hypertensive heart disease with heart failure; I48.0 Paroxysmal atrial fibrillation; F41.9 Anxiety disorder, unspecified; I27.20 Pulmonary hypertension, unspecified; E11.65 Type 2 diabetes mellitus with hyperglycemia; E87.6 Hypokalemia; E87.5 Hyperkalemia; D50.9 Iron deficiency anemia, unspecified; I48.91 Unspecified atrial fibrillation; U09.9 Post COVID-19 condition, unspecified; T45.1X5A Adverse effect of antineoplastic and immunosuppressive drugs, initial encounter; Z88.0 Allergy status to penicillin; Z88.1 Allergy status to other antibiotic agents; Z90.49 Acquired absence of other specified parts of digestive tract; Z85.71 Personal history of Hodgkin lymphoma; Z92.21 Personal history of antineoplastic chemotherapy; Z95.810 Presence of automatic (implantable) cardiac defibrillator; Z79.899 Other long term (current) drug therapy; Z20.822 Contact with and (suspected) exposure to COVID-19
CPT/HCPCS: 0241U; 36415; 71045; 71250; 80048; 80053; 80076; 80202; 82533; 82570; 82805; 82947; 83540; 83605; 83735; 83880; 83930; 83935; 84100; 84132; 84145; 84300; 84443; 84484; 84550; 85025; 85044; 85610; 86140; 87040; 87070; 87205; 93005; 93306; 94002; 94003; 94660; 94760; 96361; 96365; 99285; J0461; J0610; J0692; J0696; J1160; J1265; J1815; J1940; J2001; J2250; J2920; J2930; J3010; J3430; J7030; J7040; J7050; J7060; J7613; J7614; J7644; P9047